=== PATIENT | female | born 1995 | race African-American/Black ===

== ENCOUNTER 2019-03-16 13:07 | Emergency (ER) | payer OTHER ==
[~2019-03-16] VITALS: Ht 165.1 cm; Wt 77.1 kg
--- OUTSIDE RECORDS SUMMARY | 2019-03-16 13:11 | XMS REPORT | Clinical Summary ---
Author Author JOHANNA [facility] Address Unknown Phone Unavailable Care Team Providers Care Electrician Chief Name Role Phone Maki Irby PCP Allergies No Known Allergies Medications End Date Status Medication Sig Dispensed Refills Start Date 04/01/2018 Discontinued acetaminophen (TYLENOL) Take 650 mg 0 325 MG tablet by mouth every 6 (six) hours as needed. 04/01/2018 Discontinued Take 1 tablet 90 each 0 [id number] Tab by mouth 4 daily. ANY BRAND OR FORMULATION WITH IRON 11/22/2018 cefdinir (OMNICEF) 300 MG Take 1 20 capsule 0 capsule capsule (300 9 mg total) by mouth 2 (two) times daily for 7 days. Active Problems Problem Noted Date Intractable tension-type headache, unspecified chronicity pattern 04/01/2018 Fever in adult 04/01/2018 Encounters Care Team Description Date Type Specialty Jhony Patel MD Febrile illness (Primary Dx); Acute URI; Sore throat 11/15/2018 Emergency Emergency Medicine Edilma Lopez DO Fever in adult (Primary Dx); Intractable tension-type headache, unspecified chronicity pattern 04/01/2018 Emergency Emergency Medicine after 03/15/2018 Family History Medical History Relation Name Comments Unremarkable Neg Hx Social History Date Tobacco Use Types Packs/Day Years Used Never Smoker Smokeless Tobacco: Never Used Alcohol Use Drinks/Week oz/Week Comments No Sex Assigned at Date Recorded Not on file Industry Job Start Date Occupation Not on file Not on file Not on file Travel End Travel History Travel Start No recent travel history available. Last Filed Vital Signs Time Taken Vital Sign Reading 11/15/2018 2:28 PM [facility] Blood Pressure 129/74 11/15/2018 2:28 PM [facility] Pulse 100 11/15/2018 1:31 PM [facility] Temperature 37.9 C (100.2 F) 11/15/2018 2:28 PM [facility] Respiratory Rate 18 11/15/2018 2:28 PM [facility] Oxygen Saturation 98% - Inhaled Oxygen - Concentration 11/15/2018 1:31 PM [facility] Weight 79.8 kg (176 lb) 11/15/2018 1:31 PM [facility] Height 165.1 cm (5' 5") 11/15/2018 1:31 PM [facility] Body Mass Index 29.29 Plan of Treatment Not on file Procedures Comments Procedure Name Priority Date/Time Associated Diagnosis XR CHEST 2 VIEWS STAT 11/15/2018 2:42 PM [facility] RAPID STREP A SCREEN STAT 11/15/2018 1:49 PM [facility] RAPID INFLUENZA A&B STAT 11/15/2018 SCREEN 1:49 PM [facility] SCREEN, URINE STAT 04/01/2018 9:43 PM CDT URINALYSIS W/ REFLEX STAT 04/01/2018 URINE CULTURE 9:43 PM CDT after 03/15/2018 Results * XR chest 2 views (11/15/2018 2:42 PM [facility]) Specimen Narrative Performed At FINAL REPORT [facility] Chest, PA and lateral. History: Cough. Comparison: None available. Discussion:The cardiomediastinal silhouette and pulmonary vasculature are within normal limits. The lungs are clear without evidence of consolidation or effusion.There are no acute osseous abnormalities. The soft tissues are unremarkable. IMPRESSION: No acute cardiopulmonary abnormality. Signed: Melany Marshall MD Report Verified Date/Time:11/15/2018 14:40:12 Reading Location: [address] Radiology Reading Room Procedure Note Interface, External Ris In - 11/15/2018 3:04 PM [facility] FINAL REPORT Chest, PA and lateral. History: Cough. Comparison: None available. Discussion: The cardiomediastinal silhouette and pulmonary vasculature are within normal limits. The lungs are clear without evidence of consolidation or effusion. There are no acute osseous abnormalities. The soft tissues are unremarkable. IMPRESSION: No acute cardiopulmonary abnormality. Signed: Melany Marshall MD Report Verified Date/Time: 11/15/2018 14:40:12 Reading Location: [address] Radiology Reading Room Performing Organization Address City/[facility] Phone Number GE RIS * Rapid Strep A screen (11/15/2018 1:49 PM [facility]) Strep A Ag Negative Negative [facility] Specimen Throat Performing Organization Address [facility] Phone Number [place] [phone] [place] [address], [facility] * Influenza antigen A & B (Rapid) (11/15/2018 1:49 PM [facility]) Rapid Influenza A Antigen Negative Negative, Inconclusive [facility] Rapid influenza B Antigen Negative Negative, Inconclusive [facility] Specimen Nasopharyngeal Performing Organization Address [facility] Number [place] [phone] [place] [address], [facility] * Urinalysis w/Microscopic + Reflex to Culture (04/01/2018 9:43 PM CDT) Color, UA Yellow [facility] Clarity, UA Clear [facility] Specific [place], UA 1.010 1.001 - 1.035 [facility] pH, UA 7.0 5.0 - 8.0 [facility] Protein, UA Negative Negative [facility] Glucose, UA Negative Negative [facility], [facility], [facility] Ketones, UA Negative Negative [facility], [facility] Bilirubin, UA Negative Negative [facility], [facility], [facility] Blood, UA Trace (A) Negative [facility], [facility], [facility] Nitrite, UA Negative Negative [facility], [facility] Leukocytes, UA Negative Negative [facility], [facility], [facility] Urobilinogen, UA 0.2 0.2 - 1.0 mg/dL [facility], [facility], [facility] Bacteria, UA None Seen [facility], [facility] RBC, UA <5 /HPF [facility], [facility] WBC, UA None Seen /HPF [facility], [facility] SQUAMOUS EPITHELIAL <5 /HPF [facility], [facility] Specimen Source [facility], [facility] Specimen Urine Performing Organization Address City/[facility]/Zipcode Phone Number [facility] [address] [place], [place] [phone] [facility], [facility] * Screen, urine (04/01/2018 9:43 PM CDT) Preg Test, Ur Negative [facility], [facility] Specimen Urine Performing Organization Address City/[facility]/Zipcode Phone Number [facility] [address] [place], [place] [phone] [facility], [facility], [facility] after 03/15/2018 Insurance Payer Benefit Subscriber ID Type Phone Address Plan / Group MEDICAID - MEDICAID [facility]GD [facility] xxxxxxxxx Medicaid CARE [employer]AR Contracted PLAN
--- OUTSIDE RECORDS SUMMARY | 2019-03-16 13:12 | XMS REPORT | Continuity of Care Document ---
Author Author [employer] Address Unknown Phone Unavailable Care Team Providers Care Abseiling Instructor Name Role Phone UNATION Unavailable Unavailable Problems Problem Status Onset Date Classification Date Reported Comments Source SOB Active 12/05/2015 [facility] Resolved 12/01/2015 Problem 12/13/2015 [facility] VAGINAL DEL Active 11/24/2015 [facility] ELEVATED BP Active 05/25/2014 [facility] STOMACH PAIN Active 05/22/2014 [facility] ABDOMINAL PAIN Active 03/02/2014 [facility] Discharge Diagnosis: Abdominal pain in 03/02/2014 03/04/2014 [facility] Gestational hypertension Active Problem 12/13/2015 [facility] Group B streptococcus Active Problem 12/13/2015 [facility] Pre-eclampsia Active Problem 12/13/2015 [facility] Final: related conditions, unspecified, unspecified trimester 12/13/2015 [facility] HYPERTENSION NOS Active [facility] RELATED CONDITIONS, UNSP, UNSP Active [facility] Medications Medication Details Route Status Patient Instructions Ordering Provider Order Date Source ibuprofen 800 mg oral tablet 800 mg=1 tab, PO, Q8H, PRN Pain Score 6-10, # 30 tab, 0 Refill(s) Active 12/10/2015 [facility] Acetaminophen 300 MG / Codeine Phosphate 30 MG Oral Tablet [Tylenol with Codeine #3] 1 - 2 tab, PO, Q6H, PRN Pain, X 4 day, # 32 tab, 0 Refill(s) Active 12/10/2015 [facility] 24 HR Nifedipine 30 MG Extended Release Tablet 30 mg=1 tab, PO, Daily, # 30 tab, 0 Refill(s) Active 12/10/2015 [facility] Depo-Provera 150 mg, 1 mL, Route: IM, Drug form: INJ, ONCE, Dosing Weight 77.273, kg, Start date: 12/09/15 9:19:00, Stop date: 12/09/15 9:19:00Notes: (Same as: Depo-Provera) This is NOT Depo-SubQ Provera 104 For IM use only MEDICATION WASTE Product Size: 150 mg Product Wasted: ___ mg Inactive 12/09/2015 [facility] Multivitamins oral tablet 1 tab, Route: PO, Drug Form: TAB, Dosing Weight 77.273, kg, Daily, Start date: 12/07/15 9:00:00, Duration: 30 day, Stop date: 01/05/16 9:00:00 No Longer Active 12/07/2015 [facility] tramadol hydrochloride 50 MG Oral Tablet 50 mg, 1 tab, Route: PO, Drug form: TAB, Q4H, Dosing Weight 77.273, kg, PRN Pain Score 1-3, Start date: 12/07/15 6:00:00, Duration: 30 day, Stop date: 01/06/16 5:59:00Notes: Not to exceed 400mg/day. (Same As: Ultram) No Longer Active 12/07/2015 [facility] Ofirmev 1 gm, 100 mL, Route: IV, Drug form: INJ, Q6H, Start date: 12/07/15 0:10:00, Duration: 3 doses or times, Stop date: 12/07/15 12:00:00Notes: Infuse over 15 minutes Do not exceed 4gm/day of acetaminophen MEDICATION WASTE Product Size: 1000 mg Product Wasted: ___ mg Inactive 12/07/2015 [facility] Saline Flush 0.9% 10 ml, Route: IVP, Drug Form: INJ, Dosing Weight 77.273, kg, Q12H, Start date: 12/06/15 21:00:00, Duration: 30 day, Stop date: 01/05/16 9:00:00Notes: Same as: BD Posiflush Sterile No Longer Active 12/07/2015 [facility] Ibuprofen 600 mg, Route: PO, Drug form: TAB, Q6H, Dosing Weight 77.273, kg, Start date: 12/06/15 18:00:00, Duration: 30 day, Stop date: 01/05/16 12:00:00 Inactive 12/06/2015 [facility] Ofirmev 1,000 mg, 100 mL, Route: IV, Drug form: INJ, Q6H, Dosing Weight 77.273, kg, for > or=50 kg, Start date: 12/06/15 18:00:00, Duration: 1 day, Stop date: 12/07/15 12:00:00Notes: Infuse over 15 minutes Do not exceed 4gm/day of acetaminophen MEDICATION WASTE Product Size: 1000 mg Product Wasted: ___ mg Inactive 12/06/2015 [facility] Naloxone 0.4 mg, 1 mL, Route: IVP, Drug form: INJ, ONCALL, Dosing Weight 77.273, kg, Start date: 12/06/15 16:00:00, Duration: 24 hr, Stop date: 12/07/15 15:59:00Notes: Same as Narcan No Longer Active 12/06/2015 [facility] Nalbuphine 2 mg, Route: IVP, Q2H, Dosing Weight 77.273, kg, PRN Itching, Start date: 12/06/15 15:10:00, Duration: 5 doses or times, Stop date: Limited # of times Inactive 12/06/2015 [facility] Naloxone 0.1 mg, 0.25 mL, Route: SUB-Q, Drug form: INJ, Q6H, Dosing Weight 77.273, kg, PRN Itching, Start date: 12/06/15 15:10:00, Duration: 24 hr, Stop date: 12/07/15 15:09:00Notes: Same as Narcan No Longer Active 12/06/2015 [facility] Dexamethasone 4 mg, 1 mL, Route: IVP, Drug form: INJ, Q6H, Dosing Weight 77.273, kg, PRN Nausea & Vomiting, Start date: 12/06/15 15:10:00, Duration: 24 hr, Stop date: 12/07/15 15:09:00Notes: Concentration: 4mg/ml No Longer Active 12/06/2015 [facility] Ondansetron 4 mg, 2 mL, Route: IVP, Drug form: INJ, Q6H, Dosing Weight 77.273, kg, PRN Nausea & Vomiting, Start date: 12/06/15 15:10:00, Duration: 24 hr, Stop date: 12/07/15 15:09:00Notes: (Same as: Zofran) MEDICATION WASTE Product Size: 4 mg Product Wasted: ___ mg No Longer Active 12/06/2015 [facility] Acetaminophen 1,000 mg, 100 mL, Route: IVPB, Drug form: INJ, Q6H, Dosing Weight 77.273, kg, Priority: NOW, Start date: 12/06/15 15:10:00, Duration: 24 hr, Stop date: 12/07/15 12:00:00Notes: Infuse over 15 minutes Do not exceed 4gm/day of acetaminophen MEDICATION WASTE Product Size: 1000 mg Product Wasted: ___ mg No Longer Active 12/06/2015 [facility] Ketorolac 30 mg, 1 mL, Route: IVP, Drug form: INJ, Q6H, Dosing Weight 77.273, kg, PRN Pain Score 4-6, Start date: 12/06/15 15:10:00, Duration: 24 hr, Stop date: 12/07/15 15:09:00Notes: (Same as:Toradol) IV bolus must be given >15 seconds. Give IM administration slowly and deeply into the muscle. Not for use > 4 days MEDICATION WASTE Product Size: 30 mg Product Wasted: ___ mg No Longer Active 12/06/2015 [facility] 0.5 ML Bordetella pertussis filamentous hemagglutinin vaccine, inactivated 0.01 MG/ML / Bordetella pertussis fimbriae 2/3 vaccine, inactivated 0.01 MG/ML / Bordetella pertussis pertactin vaccine, inactivated 0.006 MG/ML / Bordetella pertussis toxoid vacci 0.5 mL, Route: IM, Drug Form: INJ, Dosing Weight 77.273, kg, ONCALL, Start date: 12/06/15 15:00:00, Duration: 1 doses or timesNotes: (Tdap ) For Adolecent and Adult use For IM Use. Same as: Adacel (Tdap) No Longer Active 12/06/2015 [facility] M-M-R II 0.5 mL, Route: SUB-Q, Drug Form: PDR/INJ, Dosing Weight 77.273, kg, ONCALL, Start date: 12/06/15 15:00:00, Duration: 1 doses or timesNotes: (Same as: M-M-R II) (ortyrfx-eiuzu-wwpofnm virus vaccine 0.5 ml INJ VL) WASTE: F/P - Red; E -Red GIVE PRIOR TO DISCHARGE No Longer Active 12/06/2015 [facility] Acetaminophen 325 MG / Hydrocodone Bitartrate 5 MG Oral Tablet 1 tab, Route: PO, Drug Form: TAB, Dosing Weight 77.273, kg, Q4H, PRN Pain Score 4-6, Start date: 12/06/15 14:53:00, Duration: 30 day, Stop date: 01/05/16 14:52:00Notes: (Same as: [place] 325/5) Do not exceed 4gm/day of acetaminophen. No Longer Active 12/06/2015 [facility] Acetaminophen 325 MG / Hydrocodone Bitartrate 10 MG Oral Tablet 1 tab, Route: PO, Drug Form: TAB, Dosing Weight 77.273, kg, Q4H, PRN Pain Score 7-10, Start date: 12/06/15 14:53:00, Duration: 30 day, Stop date: 01/05/16 14:52:00Notes: Do not exceed 4gm/day of acetaminophen. (Same as: [place] 325/10) No Longer Active 12/06/2015 [facility] Saline Flush 0.9% 10 ml, Route: IVP, Drug Form: INJ, Dosing Weight 77.273, kg, PRN, PRN Line Flush, Start date: 12/06/15 14:53:00, Duration: 30 day, Stop date: 01/05/16 14:52:00Notes: Same as: BD Posiflush Sterile No Longer Active 12/06/2015 [facility] lanolin topical cream 1 appl, Route: TOP, PRN, Drug form: OINT, PRN Other -See Comment, Start date: 12/06/15 14:53:00, Duration: 30 day, Stop date: 01/05/16 14:52:00Notes: (Same as:Lanolin) No Longer Active 12/06/2015 [facility] Bisacodyl 10 mg, 1 supp, Route: OH, Drug form: SUPP, PRN, Dosing Weight 77.273, kg, PRN Other -See Comment, Start date: 12/06/15 14:53:00, Duration: 30 day, Stop date: 01/05/16 14:52:00Notes: (Same As: Dulcola x, Bisco-Lax) No Longer Active 12/06/2015 [facility] zolpidem 5 mg, 1 tab, Route: PO, Drug form: TAB, Bedtime, Dosing Weight 77.273, kg, PRN Insomnia, Start date: 12/06/15 14:53:00, Duration: 30 day, Stop date: 01/05/16 14:52:00Notes: (Same As: Ambien) No Longer Active 12/06/2015 [facility] Acetaminophen 650 mg, Route: PO, Drug form: TAB, Q4H, Dosing Weight 77.273, kg, PRN Other -See Comment, Start date: 12/06/15 14:53:00, Duration: 30 day, Stop date: 01/05/16 14:52:00 Inactive 12/06/2015 [facility] Simethicone 160 mg, 2 tab, Route: PO, Drug form: CHEWTAB, Q8H, Dosing Weight 77.273, kg, PRN Gas, Start date: 12/06/15 14:53:00, Duration: 30 day, Stop date: 01/05/16 14:52:00Notes: (Same as: Mylicon) No Longer Active 12/06/2015 [facility] Lactated Ringers IV 1,000 mL 1,000 mL, Rate: 100 ml/hr, Infuse over: 10 hr, Route: IV, Dosing Weight 77.273 kg, Total Volume: 1,000, Start date: 12/06/15 14:53:00, Duration: 30 day, Stop date: 01/05/16 14:52:00 No Longer Active 12/06/2015 [facility] Oxytocin 0.06 UNT/ML Injectable Solution 30 unit, 500 mL, Rate: 42 ml/hr, Infuse over: 11.9 hr, Dosing Weight 77.273, kg, Route: IV, Total Volume: 500 mL, Start date: 12/06/15 14:53:00, Duration: 1 doses or times, Stop date: 12/07/15 2:46:00, Replace Every: 11.9 hrNotes: (Same as: OXYTOCIN- D5LR) Inactive 12/06/2015 [facility] Cefazolin 2 gm, 100 mL, Route: IVPB, Drug form: INJ, ONCALL, Dosing Weight 77.273, kg, Start date: 12/06/15 14:00:00, Duration: 1 doses or times, Stop date: 12/07/15 0:00:00Notes: Same as: Ancef Inactive 12/06/2015 [facility] Misoprostol 1,000 microgram, 5 tab, Route: OH, Drug form: TAB, ONCALL, Dosing Weight 77.273, kg, Start date: 12/06/15 14:00:00, Duration: 30 day, Stop date: 01/05/16 13:59:00Notes: (Same as:Cytotec) Take with food Inactive 12/06/2015 [facility] Carboprost 250 microgram, 1 mL, Route: IM, Drug form: INJ, ONCALL, Dosing Weight 77.273, kg, Start date: 12/06/15 14:00:00, Duration: 30 day, Stop date: 01/05/16 13:59:00Notes: (Same As: Hemabate) Inactive 12/06/2015 [facility] Methylergonovine 0.2 mg, 1 mL, Route: IM, Drug form: INJ, ONCALL, Dosing Weight 77.273, kg, Start date: 12/06/15 14:00:00, Duration: 30 day, Stop date: 01/05/16 13:59:00Notes: (Same as:Methergine) Inactive 12/06/2015 [facility] Calcium Chloride 0.0014 MEQ/ML / Potassium Chloride 0.004 MEQ/ML / Sodium Chloride 0.103 MEQ/ML / Sodium Lactate 0.028 MEQ/ML Injectable Solution 1,000 mL, Rate: 125 ml/hr, Infuse over: 8 hr, Route: IV, Dosing Weight 77.273 kg, Total Volume: 1,000, Start date: 12/06/15 13:39:00, Duration: 30 day, Stop date: 01/05/16 13:38:00 Inactive 12/06/2015 [facility] Citric Acid / sodium citrate 30 mL, Route: PO, Drug Form: SOLN, Dosing Weight 77.273, kg, ONCE, Start date: 12/06/15 13:39:00, Duration: 1 doses or times, Stop date: 12/06/15 13:39:00Notes: (Same As: Bicitra, Cytra-2) Sodium citrate-citric acid (500-334 mg/5 mL): 1 mL contains sodium 1 mEq/mL and bicarbonate 1 mEq/mL Inactive 12/06/2015 [facility] Metoclopramide 10 mg, 2 mL, Route: IV, Drug form: INJ, Q6H, Dosing Weight 77.273, kg, PRN Nausea & Vomiting, Start date: 12/06/15 13:39:00, Duration: 30 day, Stop date: 01/05/16 13:38:00Notes: (Same as: Reglan) Inactive 12/06/2015 [facility] Morphine 2 mg, 1 mL, Route: IVP, Drug form: INJ, Q2H, Dosing Weight 77.273, kg, PRN Pain Score 7-10, Start date: 12/06/15 13:39:00, Duration: 30 day, Stop date: 01/05/16 13:38:00Notes: (Same as:MORPhine Sulfate) Inactive 12/06/2015 [facility] Ondansetron 4 mg, 2 mL, Route: IVP, Drug form: INJ, Q8H, Dosing Weight 77.273, kg, PRN Nausea & Vomiting, Start date: 12/06/15 13:39:00, Duration: 30 day, Stop date: 01/05/16 13:38:00Notes: (Same as: Violetta) MEDICATION WASTE Product Size: 4 mg Product Wasted: ___ mg Inactive 12/06/2015 [facility] Terbutaline 0.25 mg, 0.25 mL, Route: SUB-Q, Drug form: INJ, ONCALL, Dosing Weight 77.273, kg, PRN Other -See Comment, Start date: 12/06/15 13:39:00, Duration: 1 doses or times, Stop date: 12/07/15 0:00:00Notes: DO NOT USE IN [employer] AREA (Same As: Oscar) Inactive 12/06/2015 [facility] Oxytocin 0.06 UNT/ML Injectable Solution 30 unit, 500 mL, Rate: 42 ml/hr, Infuse over: 11.9 hr, Dosing Weight 77.273, kg, Route: IV, Total Volume: 500 mL, Start date: 12/06/15 13:39:00, Duration: 1 doses or times, Stop date: 12/07/15 1:32:00, Replace Every: 11.9 hrNotes: (Same as: OXYTOCIN- D5LR) Inactive 12/06/2015 [facility] APAP/butalbital/caffeine 1 tab, Route: PO, Drug Form: TAB, Q4H, PRN Headache 1-3, Start date: 12/06/15 11:40:00, Duration: 30 day, Stop date: 01/05/16 11:39:00Notes: (uokookpatefww-umatvvpzco-rwbqswie 325-50-40mg) Do not exceed 4 gm/day of acetaminophen. (Same as: Esgic, Fioricet) No Longer Active 12/06/2015 [facility] Fioricet with Codeine 1 cap, Route: PO, Drug Form: CAP, Dosing Weight 77.273, kg, Q4H, PRN Headache 1-5, Start date: 12/06/15 11:08:00, Duration: 30 day, Stop date: 01/05/16 11:07:00 Inactive 12/06/2015 [facility] multivitamin, 1 tab, Route: PO, Drug Form: TAB, Dosing Weight 77.273, kg, Daily, Start date: 12/06/15 9:00:00, Duration: 30 day, Stop date: 01/04/16 9:00:00 Inactive 12/06/2015 [facility] Ofirmev 1,000 mg, 100 mL, Route: IV, Drug form: INJ, ONCE, Dosing Weight 77.273, kg, Priority: STAT, Start date: 12/06/15 8:19:00, Stop date: 12/06/15 8:19:00Notes: Infuse over 15 minutes Do not exceed 4gm/day of acetaminophen MEDICATION WASTE Product Size: 1000 mg Product Wasted: ___ mg Inactive 12/06/2015 [facility] Ofirmev 1,000 mg, 100 mL, Route: IV, Drug form: INJ, ONCE, Dosing Weight 77.273, kg, PRN Pain Score 1-3, for > or=50 kg, Start date: 12/06/15 7:40:00Notes: Infuse over 15 minutes Do not exceed 4gm/day of acetam inophen MEDICATION WASTE Product Size: 1000 mg Product Wasted: ___ mg No Longer Active 12/06/2015 [facility] Ofirmev 1,000 mg, 100 mL, Route: IV, Drug form: INJ, ONCE, Dosing Weight 77.273, kg, PRN Headache 6-10, for > or=50 kg, Start date: 12/06/15 1:02:00, Stop date: 01/05/16 1:01:00Notes: Infuse over 15 minutes Do not exceed 4gm/day of acetaminophen MEDICATION WASTE Product Size: 1000 mg Product Wasted: ___ mg Inactive 12/06/2015 [facility] Labetalol 80 mg, Route: IVP, Drug form: INJ, ONCE, Dosing Weight 77.273, kg, Start date: 12/05/15 23:56:00, Stop date: 12/05/15 23:56:00 No Longer Active 12/06/2015 [facility] LR IV 1,000 mL 1,000 mL, Rate: 1,000 ml/hr, Infuse over: 1 hr, Route: IV, Dosing Weight 77.273 kg, Total Volume: 1,000, Start date: 12/05/15 23:54:00, Duration: 1 doses or times, Stop date: 12/06/15 0:53:00 No Longer Active 12/06/2015 [facility] Procardia XL 30 mg, 1 tab, Route: PO, Drug form: ERTAB, Daily, Dosing Weight 77.273, kg, Start date: 12/05/15 23:30:00, Duration: 30 day, Stop date: 01/04/16 9:00:00Notes: (Same as: Adalat CC, Procardia XL) Give on empty stomach. Take 1 hour before or 2 hours after meal; "Avoid grapefruit and grapefruit juice". Do not crush No Longer Active 12/06/2015 [facility] Labetalol 80 mg, Route: IVP, Drug form: INJ, ONCE, Dosing Weight 77.273, kg, Start date: 12/05/15 23:13:00, Stop date: 12/05/15 23:13:00 Inactive 12/06/2015 [facility] Calcium Gluconate 1 gm, 10 mL, Route: IVP, Drug form: INJ, ONCE, Dosing Weight 77.273, kg, PRN Other -See Comment, Start date: 12/05/15 23:05:00Notes: WASTE: F/P - Sink; E - Municipal Trash Bin No Longer Active 12/06/2015 [facility] Magnesium Sulfate 500 mL, Rate: 50 ml/hr, Infuse over: 10 hr, Route: IV, Dosing Weight 77.273 kg, Total Volume: 500, Start date: 12/05/15 23:05:00, Duration: 30 day, Stop date: 01/04/16 23:04:00Notes: (Same as: MgSO4) WASTE: F/P - Sink; E - Municipal Trash Bin No Longer Active 12/06/2015 [facility] magnesium sulfate 6 gm / 100 mL solution 6 gm, 50 mL, Route: IVPB, Drug form: INJ, ONCE, Dosing Weight 77.273, kg, Loading dose; Dilute in 100 ml; Infuse over 30 minutes @ 200 ml/hr (STOP: Above a 6 gm loading dose, call Pharmacist or Physician), Start date: 12/05/15 23:05:00, Duration: 1...Notes: Bybj=130 mg/ml. Total volume=50 ml. Bolus dose. Run over 30 minutes. WASTE: F/P - Sink; E - Municipal Trash Bin Inactive 12/06/2015 [facility] Labetalol 40 mg, 8 mL, Route: IVP, Drug form: INJ, ONCE, Dosing Weight 77.273, kg, PRN Hypertension, Start date: 12/05/15 22:41:00, Stop date: 01/04/16 22:40:00 Inactive 12/06/2015 [facility] Labetalol 20 mg, Route: IVP, Drug form: INJ, ONCE, Dosing Weight 77.273, kg, PRN Hypertension, Start date: 12/05/15 22:15:00 Inactive 12/06/2015 [facility] -U oral capsule 1 cap, PO, Daily, 0 Refill(s) Active 12/06/2015 [facility] multivitamin, 1 tab, Route: PO, Drug Form: TAB, Dosing Weight 77.273, kg, Daily, Start date: 12/02/15 9:00:00, Duration: 30 day, Stop date: 12/31/15 9:00:00 No Longer Active 12/02/2015 [facility] betamethasone 12 mg, 2 mL, Route: IM, Drug form: INJ, Q24H, Dosing Weight 77.273, kg, Priority: NOW, Start date: 12/01/15 15:31:00, Duration: 2 doses or times, Stop date: 12/02/15 15:31:00Notes: (betamethasone acetate-sodium phosphate 6 mg/ml INJ) (Same As: Celestone Soluspan) No Longer Active 12/01/2015 [facility] D5LR 1,000 mL 1,000 mL, Rate: 75 ml/hr, Infuse over: 13.3 hr, Route: IV, Dosing Weight 77.273 kg, Total Volume: 1,000, Start date: 12/01/15 12:59:00, Duration: 30 day, Stop date: 12/31/15 12:58:00 No Longer Active 12/01/2015 [facility] Medroxyprogesterone 150 mg, 1 mL, Route: IM, Drug form: INJ, ONCE, Dosing Weight 64.091, kg, Start date: 06/17/14 11:34:00, Duration: 1 doses or times, Stop date: 06/17/14 11:34:00Notes: (Same as: Depo-Provera) This is NOT Depo-SubQ Provera 104 For IM use only. Inactive 06/17/2014 [facility] 24 HR Nifedipine 90 MG Extended Release Tablet 90 mg=1 tab, PO, Daily, # 30 tab, 2 Refill(s) Active 06/17/2014 [facility] tramadol hydrochloride 50 MG Oral Tablet 1-2 tab, PO, Q6H, Pain, # 30 tab, 0 Refill(s) Active 06/17/2014 [facility] Docusate Sodium 100 MG Oral Capsule [Colace] 100 mg=1 cap, PO, BID, Constipation, # 30 cap, 0 Refill(s) Active 06/17/2014 [facility] ibuprofen 800 mg oral tablet 800 mg=1 tab, PO, Q8H, Pain Score 6-10, # 45 tab, 0 Refill(s) Active 06/17/2014 [facility] Acetaminophen 325 MG / Hydrocodone Bitartrate 5 MG Oral Tablet 1 tab, PO, Q4H, as needed for pain, # 30 tab, 0 Refill(s) Inactive 06/17/2014 [facility] Procardia XL 90 mg, 1 tab, Route: PO, Drug form: ERTAB, Daily, Dosing Weight 64.091, kg, Start date: 06/16/14 9:00:00, Duration: 30 day, Stop date: 07/15/14 9:00:00Notes: (Same as:Adalat CC, Procardia XL) Give o n empty stomach. Take 1 hour before or 2 hours after meal; "Avoid grapefruit and grapefruit juice". Do not crush No Longer Active 06/16/2014 [facility] Procardia XL 30 mg, 1 tab, Route: PO, Drug form: ERTAB, ONCE, Dosing Weight 64.091, kg, Start date: 06/15/14 19:57:00, Stop date: 06/15/14 19:57:00Notes: (Same as: Adalat CC, Procardia XL) Give on empty stomach. Take 1 hour before or 2 hours after meal; "Avoid grapefruit and grapefruit juice". Do not crush Inactive 06/16/2014 [facility] Calcium Chloride 0.0014 MEQ/ML / Potassium Chloride 0.004 MEQ/ML / Sodium Chloride 0.103 MEQ/ML / Sodium Lactate 0.028 MEQ/ML Injectable Solution 300 mL, 300 ml/hr, Infuse Over: 1 hr, Route: IV, 300, Drug form: INJ, ONCE, Priority: STAT, Dosing Weight 64.091 kg, Start date: 06/14/14 13:37:00, Duration: 1 doses or times, Stop date: 06/14/14 13:37:00 Inactive 06/14/2014 [facility] Procardia XL 90 mg, 1 tab, Route: PO, Drug form: ERTAB, Daily, Dosing Weight 64.091, kg, Start date: 06/14/14 9:00:00, Duration: 30 day, Stop date: 07/13/14 9:00:00Notes: (Same as:Adalat CC, Procardia XL) Give o n empty stomach. Take 1 hour before or 2 hours after meal; "Avoid grapefruit and grapefruit juice". Do not crush Inactive 06/14/2014 [facility] Saline Flush 0.9% 10 ml, Route: IVP, Drug Form: INJ, Dosing Weight 64.091, kg, Q12H, Start date: 06/14/14 9:00:00, Duration: 30 day, Stop date: 07/13/14 21:00:00Notes: (Same as: BD Posiflush) No Longer Active 06/14/2014 [facility] Multivitamins oral tablet 1 tab, Route: PO, Drug Form: TAB, Dosing Weight 64.091, kg, Daily, Start date: 06/14/14 9:00:00, Duration: 30 day, Stop date: 07/13/14 9:00:00 No Longer Active 06/14/2014 [facility] Naloxone 0.4 mg, 1 mL, Route: IVP, Drug form: INJ, ONCALL, Dosing Weight 64.091, kg, Start date: 06/13/14 23:00:00, Duration: 24 hr, Stop date: 06/14/14 22:59:00Notes: Same as Narcan No Longer Active 06/14/2014 [facility] M-M-R II 0.5 mL, Route: SUB-Q, Drug Form: PDR/INJ, Dosing Weight 64.091, kg, ONCALL, Start date: 06/13/14 23:00:00, Duration: 1 doses or timesNotes: (Same as: M-M-R II) (jezsiql-doedu-einydgy virus vaccine 0.5 ml INJ VL) GIVE PRIOR TO DISCHARGE No Longer Active 06/14/2014 [facility] Acetaminophen 325 MG / Hydrocodone Bitartrate 5 MG Oral Tablet 1 tab, Route: PO, Drug Form: TAB, Dosing Weight 64.091, kg, Q4H, PRN Pain Score 4-6, Start date: 06/13/14 22:08:00, Duration: 30 day, Stop date: 07/13/14 22:07:00Notes: (Same as: [place] 325/5) Do not exceed 4gm/day of acetaminophen. No Longer Active 06/14/2014 [facility] Acetaminophen 325 MG / Hydrocodone Bitartrate 10 MG Oral Tablet 1 tab, Route: PO, Drug Form: TAB, Dosing Weight 64.091, kg, Q4H, PRN Pain Score 7-10, Start date: 06/13/14 22:08:00, Duration: 30 day, Stop date: 07/13/14 22:07:00Notes: Do not exceed 4gm/day of acetaminophen. (Same as: [place] 325/10) No Longer Active 06/14/2014 [facility] Ibuprofen 800 mg, 1 tab, Route: PO, Drug form: TAB, Q8H, Dosing Weight 64.091, kg, PRN Pain Score 6-10, Start date: 06/13/14 22:08:00, Duration: 30 day, Stop date: 07/13/14 22:07:00Notes: (Same as: Motrin) "Do Not Crush" Take with food. No Longer Active 06/14/2014 [facility] Saline Flush 0.9% 10 ml, Route: IVP, Drug Form: INJ, Dosing Weight 64.091, kg, PRN, PRN Line Flush, Start date: 06/13/14 22:08:00, Duration: 30 day, Stop date: 07/13/14 21:07:00Notes: (Same as: BD Posiflush) No Longer Active 06/14/2014 [facility] Oxytocin 0.03 UNT/ML Injectable Solution 30 unit, 500 mL, Rate: 42 ml/hr, Infuse over: 11.9 hr, Dosing Weight 64.091, kg, Route: IV, Total Volume: 500 mL, Start date: 06/13/14 22:08:00, Duration: 1 doses or times, Stop date: 06/14/14 10:01:00, Replace Every: 11.9 hrNotes: (Same as: OXYTOCIN- D5LR) No Longer Active 06/14/2014 [facility] zolpidem 5 mg, 1 tab, Route: PO, Drug form: TAB, Bedtime, Dosing Weight 64.091, kg, PRN Insomnia, Start date: 06/13/14 22:08:00, Duration: 30 day, Stop date: 07/13/14 22:07:00Notes: (Same As: Ambien) No Longer Active 06/14/2014 [facility] Simethicone 160 mg, 2 tab, Route: PO, Drug form: CHEWTAB, Q8H, Dosing Weight 64.091, kg, PRN Gas, Start date: 06/13/14 22:08:00, Duration: 30 day, Stop date: 07/13/14 22:07:00Notes: (Same as: Mylicon) No Longer Active 06/14/2014 [facility] Acetaminophen 650 mg, 20.3 mL, Route: PO, Drug form: LIQ, Q4H, Dosing Weight 64.091, kg, PRN Other -See Comment, Start date: 06/13/14 22:08:00, Duration: 30 day, Stop date: 07/13/14 22:07:00Notes: Max acetaminophe i=[id number]/day (4 gm/day). (Same as: Tylenol) No Longer Active 06/14/2014 [facility] lanolin topical cream 1 appl, Route: TOP, PRN, Drug form: OINT, PRN Other -See Comment, Start date: 06/13/14 22:08:00, Duration: 30 day, Stop date: 07/13/14 21:07:00Notes: (Same as:Lanolin) No Longer Active 06/14/2014 [facility] Bisacodyl 15 mg, 3 tab, Route: PO, Drug form: ECTAB, Daily, Dosing Weight 64.091, kg, PRN Other -See Comment, Start date: 06/13/14 22:08:00, Duration: 30 day, Stop date: 07/13/14 22:07:00Notes: (Same As: [place] lax, Correctol) (Do Not Crush) "Do Not Crush" No Longer Active 06/14/2014 [facility] Lactated Ringers IV 1,000 mL 1,000 mL, Rate: 100 ml/hr, Infuse over: 10 hr, Route: IV, Dosing Weight 64.091 kg, Total Volume: 1,000, Start date: 06/13/14 22:08:00, Duration: 30 day, Stop date: 07/13/14 22:07:00 No Longer Active 06/14/2014 [facility] Ketorolac 30 mg, 1 mL, Route: IVP, Drug form: INJ, Q6H, Dosing Weight 64.091, kg, PRN Pain Score 4-6, Start date: 06/13/14 22:05:00, Duration: 24 hr, Stop date: 06/14/14 22:04:00Notes: (Same as:Toradol) IV bolus must be given >15 seconds. Give IM administration slowly and deeply into the muscle. Not for use > 4 days No Longer Active 06/14/2014 [facility] Ibuprofen 600 mg, 1 tab, Route: PO, Drug form: TAB, Q6H, Dosing Weight 64.091, kg, PRN Pain Score 1-3, Start date: 06/13/14 22:05:00, Stop date: 07/13/14 18:00:00Notes: (Same as: Motrin) "Do Not Crush" Take with food. No Longer Active 06/14/2014 [facility] Ondansetron 4 mg, 2 mL, Route: IVP, Drug form: INJ, Q6H, Dosing Weight 64.091, kg, PRN Nausea & Vomiting, Start date: 06/13/14 22:05:00, Duration: 24 hr, Stop date: 06/14/14 22:04:00Notes: (Same as: Zofran) No Longer Active 06/14/2014 [facility] Acetaminophen 1,000 mg, 100 mL, Route: IVPB, Drug form: INJ, Q6H, Dosing Weight 64.091, kg, Priority: NOW, Start date: 06/13/14 22:05:00, Duration: 24 hr, Stop date: 06/14/14 18:00:00Notes: Infuse over 15 minutes Do not exceed 4gm/day of acetaminophen Active 06/14/2014 [facility] Acetaminophen 325 MG / Hydrocodone Bitartrate 5 MG Oral Tablet 1 tab, Route: PO, Drug Form: TAB, Dosing Weight 64.091, kg, Q4H, PRN Pain Score 4-6, Start date: 06/13/14 22:00:00, Duration: 30 day, Stop date: 07/13/14 21:59:00Notes: (Same as: [place] 325/5) Do not exceed 4gm/day of acetaminophen. No Longer Active 06/14/2014 [facility] Ibuprofen 800 mg, 1 tab, Route: PO, Drug form: TAB, Q8H, Dosing Weight 64.091, kg, PRN Pain Score 6-10, Start date: 06/13/14 22:00:00, Duration: 30 day, Stop date: 07/13/14 21:59:00Notes: (Same as: Motrin) "Do Not Crush" Take with food. No Longer Active 06/14/2014 [facility] Acetaminophen 325 MG / Hydrocodone Bitartrate 10 MG Oral Tablet 1 tab, Route: PO, Drug Form: TAB, Dosing Weight 64.091, kg, Q4H, PRN Pain Score 7-10, Start date: 06/13/14 22:00:00, Duration: 30 day, Stop date: 07/13/14 21:59:00Notes: Do not exceed 4gm/day of acetaminophen. (Same as: [place] 325/10) No Longer Active 06/14/2014 [facility] Penicillin G 2,500,000 unit, 50 mL, Route: IVPB, Drug form: INJ, ABXQ4H, Dosing Weight 64.091, kg, Start date: 06/13/14 19:00:00 No Longer Active 06/14/2014 [facility] Oxytocin 0.03 UNT/ML Injectable Solution 30 unit, 500 mL, Rate: Titrate, Dosing Weight 64.091, kg, Route: IV, Total Volume: 500 mL, Start date: 06/13/14 15:21:00, Duration: 2 day, Stop date: 06/15/14 15:20:00, Replace Every: 24 hrNotes: (Same as: OXYTOCIN-D5LR) No Longer Active 06/13/2014 [facility] Hydralazine 10 mg, Route: IV, ONCE, Dosing Weight 64.091, kg, Priority: STAT, Start date: 06/13/14 15:19:00, Stop date: 06/13/14 15:19:00 Inactive 06/13/2014 [facility] Penicillin G Potassium [id number] UNT/ML Injectable Solution 5,000,000 unit, Route: IVPB, Drug form: PDR/INJ, ONCALL, Dosing Weight 64.091, kg, Start date: 06/13/14 15:00:00, Duration: 1 doses or timesNotes: (Same as: Pfizerpen) No Longer Active 06/13/2014 [facility] Calcium Gluconate 1 gm, 10 mL, Route: IVPB, Drug form: INJ, ONCALL, Dosing Weight 64.091, kg, (Maximum Dose=3 gm); For Hypermagnesemia, Start date: 06/13/14 15:00:00, Duration: 30 day, Stop date: 07/13/14 13:59:00 No Longer Active 06/13/2014 [facility] Magnesium Sulfate 500 mL, Rate: 50 ml/hr, Infuse over: 10 hr, Route: IV, Dosing Weight 64.091 kg, Total Volume: 500, Start date: 06/13/14 14:25:00, Stop date: 06/14/14 22:00:00Notes: (Same as: MgSO4) No Longer Active 06/13/2014 [facility] Hydralazine 10 mg, 0.5 mL, Route: IV, Drug form: INJ, ONCE, Dosing Weight 64.091, kg, Start date: 06/13/14 13:55:00, Stop date: 06/13/14 13:55:00Notes: (Same as: Apresoline) Push over 5 minutes Inactive 06/13/2014 [facility] Procardia XL 30 mg, 1 tab, Route: PO, Drug form: ERTAB, ONCE, Dosing Weight 64.091, kg, Priority: STAT, Start date: 06/13/14 10:50:00, Stop date: 06/13/14 10:50:00Notes: (Same as: Adalat CC, Procardia XL) Give on e mpty stomach. Take 1 hour before or 2 hours after meal; "Avoid grapefruit and grapefruit juice". Do not crush Inactive 06/13/2014 [facility] Labetalol 40 mg, 8 mL, Route: IV, Drug form: INJ, ONCE, Dosing Weight 64.091, kg, Start date: 06/12/14 19:41:00, Stop date: 06/12/14 19:41:00 Inactive 06/13/2014 [facility] Labetalol 20 mg, Route: IVP, Drug form: INJ, ONCE, Dosing Weight 64.091, kg, Start date: 06/12/14 18:35:00, Stop date: 06/12/14 18:35:00 Inactive 06/12/2014 [facility] Citric Acid / sodium citrate 30 ml, Route: PO, Drug Form: SOLN, Dosing Weight 64.091, kg, ONCE, Start date: 06/09/14 20:09:00, Stop date: 06/09/14 20:09:00Notes: (Same As: Bicitra, Cytra-2) Sodium citrate-citric acid (500-334 mg/5 mL): 1 mL contains sodium 1 mEq/mL and bicarbonate 1 mEq/mL Inactive 06/10/2014 [facility] Citric Acid / sodium citrate 30 ml, Route: PO, Drug Form: SOLN, Dosing Weight 64.091, kg, ONCE, Start date: 06/08/14 21:26:00, Stop date: 06/08/14 21:26:00Notes: (Same As: Bicitra, Cytra-2) Sodium citrate-citric acid (500-334 mg/5 mL): 1 mL contains sodium 1 mEq/mL and bicarbonate 1 mEq/mL Inactive 06/09/2014 [facility] Procardia XL 60 mg, 1 tab, Route: PO, Drug form: ERTAB, Daily, Dosing Weight 64.091, kg, Start date: 06/07/14 9:00:00, Duration: 30 day, Stop date: 07/06/14 9:00:00Notes: (Same as: Adalat CC, Procardia XL) Give on empty stomach. Take 1 hour before or 2 hours after meal; "Avoid grapefruit and grapefruit juice". Do not crush No Longer Active 06/07/2014 [facility] Procardia 30 mg, 1 tab, Route: PO, Drug form: ERTAB, ONCE, Dosing Weight 64.091, kg, Start date: 06/06/14 19:56:00, Stop date: 06/06/14 19:56:00Notes: (Same as: Adalat CC, Procardia XL) Give on empty stomach. Take 1 hour before or 2 hours after meal; "Avoid grapefruit and grapefruit juice". Do not crush Inactive 06/07/2014 [facility] Zofran 4 mg, 1 tab, Route: PO, Drug form: TAB, Q8H, Dosing Weight 64.091, kg, PRN Nausea, Start date: 06/06/14 18:35:00, Duration: 30 day, Stop date: 07/06/14 18:34:00Notes: (Same as: Zofran) No Longer Active 06/06/2014 [facility] Acetaminophen 325 MG / butalbital 50 MG / Caffeine 40 MG Oral Capsule 1 tab, Route: PO, Drug Form: TAB, Dosing Weight 64.091, kg, Q6H, PRN Headache 1-5, Start date: 06/03/14 1:06:00, Stop date: 07/03/14 1:05:00Notes: (duijiifianjyk-uuantvqvye-ribwlczm 325-50-40mg) Do not exceed 4 gm/day of acetaminophen. (Same as: Esgic, Fioricet) No Longer Active 06/03/2014 [facility] Famotidine 20 MG Oral Tablet [Pepcid] 20 mg, 1 tab, Route: PO, Drug form: TAB, Daily, Dosing Weight 64.091, kg, Start date: 06/01/14 9:00:00, Duration: 30 day, Stop date: 06/30/14 9:00:00Notes: (Same as: Pepcid) No Longer Active 06/01/2014 [facility] ferrous sulfate 325 mg, 1 tab, Route: PO, Drug form: ECTAB, Daily, Dosing Weight 64.091, kg, Start date: 06/01/14 9:00:00, Duration: 30 day, Stop date: 06/30/14 9:00:00Notes: Give with food. "Do Not Crush" No Longer Active 06/01/2014 [facility] Docusate Sodium 100 MG Oral Capsule [Colace] 100 mg, 1 cap, Route: PO, Drug form: CAP, BID, Dosing Weight 64.091, kg, PRN Constipation, Start date: 06/01/14 8:01:00, Duration: 30 day, Stop date: 07/01/14 8:00:00Notes: (Same as: Colace) (Do Not Crush) No Longer Active 06/01/2014 [facility] Influenza Virus Vaccine, Inactivated M-Jikylevm-82-2007 (H3N2)-like virus (U-Kxrkxve-236-2007 [facility] X-175C) strain / Influenza Virus Vaccine, Inactivated S-Moyjnczx-04-2007, IVR-148 (H1N1) strain / Influenza Virus Vaccine, Inactivated, L-Xjoearb-4-lik 0.5 ml, Route: IM, Drug Form: SUSP, Daily, Start date: 05/30/14 9:00:00, Duration: 1 doses or times, Stop date: 05/30/14 9:00:00Notes: (Same as: Fluzone Quadrivalent) Inactive 05/30/2014 [facility] Tylenol 650 mg, 2 tab, Route: PO, Drug form: TAB, Q6H, Dosing Weight 64.091, kg, PRN Pain Score 1-3, Start date: 05/26/14 11:01:00, Duration: 30 day, Stop date: 06/25/14 11:00:00Notes: Do not exceed 4 gm/day. (Same as: Tylenol) No Longer Active 05/26/2014 [facility] Ascorbic Acid / Calcium Carbonate / Copper Sulfate / Ferrous fumarate / Folic Acid / Magnesium Oxide / Niacinamide / Potassium Iodide / pyridoxine / Riboflavin / Thiamine / Vitamin A / Vitamin B 12 / Vitamin D / Vitamin E / Zinc Sulfate 1 tab, Route: PO, Drug Form: TAB, Dosing Weight 64.091, kg, Daily, Start date: 05/26/14 9:00:00, Duration: 30 day, Stop date: 06/24/14 9:00:00 No Longer Active 05/26/2014 [facility] Procardia XL 30 mg, 1 tab, Route: PO, Drug form: ERTAB, Daily, Dosing Weight 64.091, kg, Start date: 05/26/14 7:00:00, Duration: 30 day, Stop date: 06/24/14 9:00:00Notes: (Same as: Adalat CC, Procardia XL) Give on empty stomach. Take 1 hour before or 2 hours after meal; "Avoid grapefruit and grapefruit juice". Do not crush No Longer Active 05/26/2014 [facility] Lactated Ringers IV 1,000 mL 1,000 mL, Rate: 50 ml/hr, Infuse over: 20 hr, Route: IV, Dosing Weight 64.091 kg, Total Volume: 1,000, Start date: 05/26/14 3:32:00, Duration: 30 day, Stop date: 06/25/14 3:31:00 No Longer Active 05/26/2014 [facility] Calcium Gluconate 1 gm, 10 mL, Route: IVPB, ONCALL, Dosing Weight 64.091, kg, (Maximum Dose=3 gm); For Hypermagnesemia, Start date: 05/26/14 2:00:00, Duration: 30 day, Stop date: 06/25/14 1:59:00 No Longer Active 05/26/2014 [facility] Betamethasone / Betamethasone acetate 12 mg, 2 mL, Route: IM, Drug form: INJ, Q24H, Dosing Weight 64.091, kg, Start date: 05/26/14 2:00:00, Duration: 2 doses or times, Stop date: 05/27/14 2:00:00Notes: (betamethasone acetate-sodium phosphate 6 mg/ml INJ) (Same As: Celestone Soluspan) No Longer Active 05/26/2014 [facility] Magnesium Sulfate 6 gm, 50 mL, Route: IVPB, Drug form: INJ, ONCE, Dosing Weight 64.091, kg, Loading dose; Dilute in 100 ml; Infuse over 30 minutes @ 200 ml/hr (STOP: Above a 6 gm loading dose, call Pharmacist or Physician), Start date: 05/26/14 1:39:00, Duration: 1 d...Notes: Raaf=285 mg/ml. Total volume=50 ml. Bolus dose. Run over 30 minutes. Inactive 05/26/2014 [facility] Labetalol 40 mg, 8 mL, Route: IV, Drug form: INJ, ONCE, Dosing Weight 64.091, kg, Start date: 05/26/14 1:10:00, Stop date: 05/26/14 1:10:00 Inactive 05/26/2014 [facility] Labetalol 20 mg, Route: IVP, Drug form: INJ, ONCE, Dosing Weight 64.091, kg, Start date: 05/26/14 0:42:00, Stop date: 05/26/14 0:42:00 Inactive 05/26/2014 [facility] Famotidine 20 MG Oral Tablet [Pepcid] 20 mg=1 tab, PO, Q12H, # 60 tab, 1 Refill(s) Active 05/23/2014 [facility] multivitamin, Multivitamins with Folic Acid 1.4 mg oral tablet, chewable 1 tab, PO, Daily, # 30 tab, 3 Refill(s) Active 05/23/2014 [facility] Ascorbic Acid / Calcium Carbonate / Copper Sulfate / Ferrous fumarate / Folic Acid / Magnesium Oxide / Niacinamide / Potassium Iodide / pyridoxine / Riboflavin / Thiamine / Vitamin A / Vitamin B 12 / Vitamin D / Vitamin E / Zinc Sulfate 1 tab, Route: PO, Drug Form: TAB, Dosing Weight 64.091, kg, Daily, Start date: 05/23/14 9:00:00, Duration: 30 day, Stop date: 06/21/14 9:00:00 Inactive 05/23/2014 [facility] Famotidine 20 MG Oral Tablet [Pepcid] 20 mg, 1 tab, Route: PO, Drug form: TAB, Q12H, Dosing Weight 64.091, kg, Start date: 05/23/14 9:00:00, Duration: 30 day, Stop date: 06/21/14 21:00:00Notes: (Same as: Pepcid) Inactive 05/23/2014 [facility] Tylenol 650 mg, 2 tab, Route: PO, Drug form: TAB, ONCE, Dosing Weight 64.091, kg, Start date: 05/22/14 18:49:00, Stop date: 05/22/14 18:49:00Notes: Do not exceed 4 gm/day. (Same as: Tylenol) Inactive 05/22/2014 [facility] Saline Flush 0.9% 5 mL, Route: IVP, Drug Form: INJ, Dosing Weight 59.091, kg, PRN, PRN Line Flush, Start date: 03/02/14 20:45:00, Duration: 30 day, Stop date: 04/01/14 20:44:00Notes: Same as: BD Posiflush Sterile No Longer Active 03/03/2014 [facility] Allergies, Adverse Reactions, Alerts No Known Medication Allergies Immunizations Immunization Date Given Site Status Last Updated Comments Source diphtheria/pertussis, acel/tetanus adult 12/09/2015 Left Deltoid completed Gerardo [facility] influenza virus vaccine, inactivated 06/09/2014 Right Deltoid completed Klaus [facility] diphtheria/pertussis, acel/tetanus adult 06/08/2014 Right deltoid completed Loni [facility] Results Order Name Results Value Reference Range Date Interpretation Comments Source IMMUNOLOGY Rubella IgG 62.7 >=10.0 IU/mL 12/07/2015 [facility] HEMATOLOGY Hct 34.9 36.0 - 48.0 12/07/2015 [facility] HEMATOLOGY Hgb 11.4 12.0 - 16.0 12/07/2015 [facility] BLOOD BANK RESULTS ABO/Rh A POS 12/06/2015 [facility] BLOOD BANK RESULTS Antibody Scrn Negative (12/05/15 11:26 PM) 12/06/2015 [facility] CHEM PANEL ALT 18 0 - 65 12/06/2015 [facility] CHEM PANEL AST 27 0 - 37 12/06/2015 [facility] CHEM PANEL Uric Acid 5.7 2.5 - 7.0 12/06/2015 [facility] CHEM PANEL Creatinine Lvl 0.58 0.50 - 1.40 12/06/2015 [facility] CHEM PANEL eGFR 152 12/06/2015 Result Comment: The eGFR is calculated using the CKD-EPI formula. In most young, healthy individuals the eGFR will be >90 mL/min/1.73m2. The eGFR declines with age. An eGFR of 60-89 may be normal in some populations, particularly the elderly, for whom the CKD-EPI formula has not been extensively validated. Use of the eGFR is not recommended in the following populations:

Individuals with unstable creatinine concentrations, including patients and those with serious co-morbid conditions.

Patients with extremes in muscle mass or diet.

The data above are obtained from the National Kidney Disease Education Program (NKDEP) which additionally recommends that when the eGFR is used in patients with extremes of body mass index for purposes of drug dosing, the eGFR should be multiplied by the estimated BMI. [facility] CHEM PANEL LDH 275 98 - 192 12/06/2015 [facility] DRUG SCREEN UDS Note See Note (12/05/15 11:16 PM) 12/06/2015 [facility] DRUG SCREEN U Opiate Scr Negative *NA* (12/05/15 11:16 PM) Negative 12/06/2015 [facility] DRUG SCREEN U Phencyc Scr Negative *NA* (12/05/15 11:16 PM) Negative 12/06/2015 [facility] DRUG SCREEN U Propoxyph Scr Negative *NA* (12/05/15 11:16 PM) Negative 12/06/2015 [facility] DRUG SCREEN U Alcohol Negative *NA* (12/05/15 11:16 PM) Negative 12/06/2015 [facility] DRUG SCREEN U Methadone Scr Negative *NA* (12/05/15 11:16 PM) Negative 12/06/2015 [facility] DRUG SCREEN U Amph Scr Negative *NA* (12/05/15 11:16 PM) Negative 12/06/2015 [facility] DRUG SCREEN U Cocaine Scr Negative *NA* (12/05/15 11:16 PM) Negative 12/06/2015 [facility] DRUG SCREEN U Cannab Scr Negative *NA* (12/05/15 11:16 PM) Negative 12/06/2015 [facility] DRUG SCREEN U Benzodia Scr Negative *NA* (12/05/15 11:16 PM) Negative 12/06/2015 [facility] DRUG SCREEN U Ce Scr Negative *NA* (12/05/15 11:16 PM) Negative 12/06/2015 [facility] HEMATOLOGY MPV 10.5 7.4 - 10.4 12/06/2015 [facility] HEMATOLOGY Platelet 256 133 - 450 12/06/2015 [facility] HEMATOLOGY RDW 13.3 11.5 - 14.5 12/06/2015 [facility] HEMATOLOGY RBC 4.36 4.20 - 5.40 12/06/2015 [facility] HEMATOLOGY Hgb 11.9 12.0 - 16.0 12/06/2015 [facility] HEMATOLOGY WBC 9.3 3.7 - 10.4 12/06/2015 [facility] HEMATOLOGY MCHC 33.3 32.0 - 36.0 12/06/2015 [facility] HEMATOLOGY Hct 35.7 36.0 - 48.0 12/06/2015 [facility] HEMATOLOGY MCV 81.8 80.0 - 98.0 12/06/2015 [facility] HEMATOLOGY MCH 27.2 27.0 - 31.0 12/06/2015 [facility] HEMATOLOGY Lymphocytes 24.6 20.0 - 40.0 12/06/2015 [facility] HEMATOLOGY Eosinophils 0.4 0.0 - 4.0 12/06/2015 [facility] HEMATOLOGY Monocytes 14.4 2.0 - 12.0 12/06/2015 [facility] HEMATOLOGY Segs 60.3 45.0 - 75.0 12/06/2015 [facility] HEMATOLOGY Segs-Bands # 5.6 1.5 - 8.1 12/06/2015 [facility] HEMATOLOGY Lymphocytes # 2.3 1.0 - 5.5 12/06/2015 [facility] HEMATOLOGY Monocytes # 1.3 0.0 - 0.8 12/06/2015 [facility] HEMATOLOGY Basophils 0.3 0.0 - 1.0 12/06/2015 [facility] URINE CHEM U Creatinine 73.50 12/06/2015 [facility] URINE CHEM U Protein 1033.3 12/06/2015 [facility] URINE CHEM U Prot/Creat 14.1 12/06/2015 [facility] BLOOD BANK RESULTS ABO/Rh A POS 12/01/2015 [facility] BLOOD BANK RESULTS Antibody Scrn Negative (12/01/15 3:37 PM) 12/01/2015 [facility] DRUG SCREEN U Cannab Scr Negative *NA* (12/01/15 3:37 PM) Negative 12/01/2015 [facility] DRUG SCREEN U Opiate Scr Negative *NA* (12/01/15 3:37 PM) Negative 12/01/2015 [facility] DRUG SCREEN U Phencyc Scr Negative *NA* (12/01/15 3:37 PM) Negative 12/01/2015 [facility] DRUG SCREEN U Cocaine Scr Negative *NA* (12/01/15 3:37 PM) Negative 12/01/2015 [facility] DRUG SCREEN U Benzodia Scr Negative *NA* (12/01/15 3:37 PM) Negative 12/01/2015 [facility] DRUG SCREEN U Ce Scr Negative *NA* (12/01/15 3:37 PM) Negative 12/01/2015 [facility] DRUG SCREEN U Amph Scr Negative *NA* (12/01/15 3:37 PM) Negative 12/01/2015 [facility] DRUG SCREEN UDS Note See Note *NA* (12/01/15 3:37 PM) 12/01/2015 [facility] IMMUNOLOGY Hep Bs Ag Negative *NA* (12/01/15 3:37 PM) Negative 12/01/2015 [facility] IMMUNOLOGY Treponemal Scr Non Reactive *NA* (12/01/15 3:37 PM) Non Reactive 12/01/2015 [facility] IMMUNOLOGY HIV. Negative *NA* (12/01/15 3:37 PM) Negative 12/01/2015 [facility] CHEM PANEL Globulin 4.9 2.0 - 4.0 12/01/2015 [facility] CHEM PANEL A/G Ratio 0.6 0.7 - 1.6 12/01/2015 [facility] CHEM PANEL AGAP 12.8 10.0 - 20.0 12/01/2015 [facility] [place] B/C Ratio 10 6 - 25 12/01/2015 [facility] [place] CHEM PANEL eGFR 151 12/01/2015 Result Comment: The eGFR is calculated using the CKD-EPI formula. In most young, healthy individuals the eGFR will be >90 mL/min/1.73m2. The eGFR declines with age. An eGFR of 60-89 may be normal in some populations, particularly the elderly, for whom the CKD-EPI formula has not been extensively validated. Use of the eGFR is not recommended in the following populations:

Individuals with unstable creatinine concentrations, including patients and those with serious co-morbid conditions.

Patients with extremes in muscle mass or diet.

The data above are obtained from the National Kidney Disease Education Program (NKDEP) which additionally recommends that when the eGFR is used in patients with extremes of body mass index for purposes of drug dosing, the eGFR should be multiplied by the estimated BMI. [facility] [place] CHEM PANEL Glucose Lvl 84 70 - 99 12/01/2015 [facility] [place] CHEM PANEL BUN 6 7 - 22 12/01/2015 [facility] [place] CHEM PANEL Potassium Lvl 3.8 3.5 - 5.1 12/01/2015 [facility] [place] CHEM PANEL Chloride Lvl 106 95 - 109 12/01/2015 [facility] [place] CHEM PANEL Creatinine Lvl 0.58 0.50 - 1.40 12/01/2015 [facility] [place] CHEM PANEL Sodium Lvl 139 135 - 145 12/01/2015 [facility] [place] CHEM PANEL ALT 16 0 - 65 12/01/2015 [facility] [place] CHEM PANEL Bili Total 0.2 0.2 - 1.3 12/01/2015 [facility] [place] CHEM PANEL AST 17 0 - 37 12/01/2015 [facility] [place] CHEM PANEL Alk Phos 92 39 - 136 12/01/2015 [facility] [place] CHEM PANEL Total Protein 7.9 6.4 - 8.4 12/01/2015 [facility] [place] CHEM PANEL CO2 24 24 - 32 12/01/2015 [facility] [place] CHEM PANEL Albumin Lvl 3.0 3.5 - 5.0 12/01/2015 [facility] [place] CHEM PANEL Calcium Lvl 9.1 8.5 - 10.5 12/01/2015 [facility] [place] HEMATOLOGY MCHC 33.2 32.0 - 36.0 12/01/2015 [facility] [place] HEMATOLOGY RDW 13.5 11.5 - 14.5 12/01/2015 [facility] [place] HEMATOLOGY MCV 82.3 80.0 - 98.0 12/01/2015 [facility] HEMATOLOGY MCH 27.3 27.0 - 31.0 12/01/2015 [facility] [place] HEMATOLOGY Hct 39.5 36.0 - 48.0 12/01/2015 [facility] [place] HEMATOLOGY Platelet 255 133 - 450 12/01/2015 [facility] [place] HEMATOLOGY Hgb 13.1 12.0 - 16.0 12/01/2015 [facility] [place] HEMATOLOGY WBC 9.1 3.7 - 10.4 12/01/2015 [facility] [place] HEMATOLOGY RBC 4.80 4.20 - 5.40 12/01/2015 [facility] [place] HEMATOLOGY MPV 10.2 7.4 - 10.4 12/01/2015 [facility] [place] HEMATOLOGY Basophils # 0.1 0.0 - 0.2 12/01/2015 [facility] [place] HEMATOLOGY Lymphocytes # 1.7 1.0 - 5.5 12/01/2015 [facility] HEMATOLOGY Segs-Bands # 6.6 1.5 - 8.1 12/01/2015 [facility] [place] HEMATOLOGY Basophils 0.6 0.0 - 1.0 12/01/2015 [facility] [place] HEMATOLOGY Monocytes # 0.6 0.0 - 0.8 12/01/2015 [facility] [place] HEMATOLOGY Monocytes 7.1 2.0 - 12.0 12/01/2015 [facility] [place] HEMATOLOGY Eosinophils 0.3 0.0 - 4.0 12/01/2015 [facility] [place] HEMATOLOGY Lymphocytes 19.2 20.0 - 40.0 12/01/2015 [facility] HEMATOLOGY Segs 72.8 45.0 - 75.0 12/01/2015 [facility] URINE CHEM U Protein 181.9 12/01/2015 [facility] [place] URINE CHEM U Creatinine 326.00 12/01/2015 [facility] [place] URINE CHEM U Prot/Creat 0.6 12/01/2015 [facility] [place] CHEM PANEL eGFR 151 06/16/2014 <sup>1</sup>Result Comment: The eGFR is calculated using the CKD-EPI formula. In most young, healthy individuals the eGFR will be >90 mL/min/1.73m2. The eGFR declines with age. An eGFR of 60-89 may be normal in some populations, particularly the elderly, for whom the CKD-EPI formula has not been extensively validated. Use of the eGFR is not recommended in the following populations:& lt;br/>
Individuals with unstable creatinine concentrations, including patients and those with serious co-morbid conditions.

Patients with extremes in muscle mass or diet.

The data above are obtained from the National Kidney Disease Education Program (NKDEP) which additionally recommends that when the eGFR is used in patients with extremes of body mass index for purposes of drug dosing, the eGFR should be multiplied by the estimated BMI. [facility] [place] CHEM PANEL Creatinine Lvl 0.6 0.5 - 1.4 06/16/2014 [facility] HEMATOLOGY RDW 13.6 11.5 - 14.5 06/16/2014 [facility] HEMATOLOGY Platelet 275 133 - 450 06/16/2014 [facility] [place] HEMATOLOGY MPV 10.4 7.4 - 10.4 06/16/2014 [facility] HEMATOLOGY Hgb 11.2 12.0 - 16.0 06/16/2014 [facility] [place] HEMATOLOGY MCV 87.0 80.0 - 98.0 06/16/2014 [facility] [place] HEMATOLOGY Hct 32.9 36.0 - 48.0 06/16/2014 [facility] HEMATOLOGY WBC 11.5 3.7 - 10.4 06/16/2014 [facility] [place] HEMATOLOGY MCH 29.5 27.0 - 31.0 06/16/2014 [facility] [place] HEMATOLOGY RBC 3.78 4.20 - 5.40 06/16/2014 [facility] [place] HEMATOLOGY MCHC 33.9 32.0 - 36.0 06/16/2014 [facility] HEMATOLOGY Segs 59.0 45.0 - 75.0 06/16/2014 [facility] HEMATOLOGY Lymphocytes 32.4 20.0 - 40.0 06/16/2014 [facility] [place] HEMATOLOGY Monocytes 7.3 2.0 - 12.0 06/16/2014 [facility] [place] HEMATOLOGY Eosinophils 0.8 0.0 - 4.0 06/16/2014 [facility] [place] HEMATOLOGY Basophils # 0.1 0.0 - 0.2 06/16/2014 [facility] HEMATOLOGY Basophils 0.5 0.0 - 1.0 06/16/2014 [facility] [place] HEMATOLOGY Lymphocytes # 3.7 1.0 - 5.5 06/16/2014 [facility] [place] HEMATOLOGY Segs-Bands # 6.8 1.5 - 8.1 06/16/2014 [facility] [place] HEMATOLOGY Monocytes # 0.8 0.0 - 0.8 06/16/2014 [facility] [place] HEMATOLOGY Eosinophils # 0.1 0.0 - 0.5 06/16/2014 [facility] [place] CHEM PANEL Uric Acid 6.1 2.5 - 7.0 06/14/2014 [facility] [place] CHEM PANEL LDH 336 98 - 192 06/14/2014 [facility] [place] CHEM PANEL eGFR 93 06/14/2014 <sup>2</sup>Result Comment: The eGFR is calculated using the CKD-EPI formula. In most young, healthy individuals the eGFR will be >90 mL/min/1.73m2. The eGFR declines with age. An eGFR of 60-89 may be normal in some populations, particularly the elderly, for whom the CKD-EPI formula has not been extensively validated. Use of the eGFR is not recommended in the following populations:& lt;br/>
Individuals with unstable creatinine concentrations, including patients and those with serious co-morbid conditions.

Patients with extremes in muscle mass or diet.

The data above are obtained from the National Kidney Disease Education Program (NKDEP) which additionally recommends that when the eGFR is used in patients with extremes of body mass index for purposes of drug dosing, the eGFR should be multiplied by the estimated BMI. [facility] [place] CHEM PANEL Creatinine Lvl 1.0 0.5 - 1.4 06/14/2014 [facility] [place] CHEM PANEL ASPARTATE TRANSAMINASE 32 0 - 37 06/14/2014 [facility] [place] CHEM PANEL ALANINE AMINOTRANSFERASE 23 0 - 65 06/14/2014 [facility] [place] ELECTROLYTES AGAP 13.4 10.0 - 20.0 06/14/2014 [facility] [place] ELECTROLYTES Calcium Lvl 8.1 8.5 - 10.5 06/14/2014 [facility] [place] ELECTROLYTES CO2 25 24 - 32 06/14/2014 [facility] [place] ELECTROLYTES Potassium Lvl 4.4 3.5 - 5.1 06/14/2014 [facility] [place] ELECTROLYTES Chloride Lvl 100 95 - 109 06/14/2014 [facility] [place] ELECTROLYTES Sodium Lvl 134 135 - 145 06/14/2014 [facility] [place] ELECTROLYTES eGFR 93 06/14/2014 <sup>3</sup>Result Comment: The eGFR is calculated using the CKD-EPI formula. In most young, healthy individuals the eGFR will be >90 mL/min/1.73m2. The eGFR declines with age. An eGFR of 60-89 may be normal in some populations, particularly the elderly, for whom the CKD-EPI formula has not been extensively validated. Use of the eGFR is not recommended in the following populations:& lt;br/>
Individuals with unstable creatinine concentrations, including patients and those with serious co-morbid conditions.

Patients with extremes in muscle mass or diet.

The data above are obtained from the National Kidney Disease Education Program (NKDEP) which additionally recommends that when the eGFR is used in patients with extremes of body mass index for purposes of drug dosing, the eGFR should be multiplied by the estimated BMI. [facility] ELECTROLYTES BUN 9 7 - 22 06/14/2014 [facility] ELECTROLYTES Glucose Lvl 98 70 - 99 06/14/2014 <sup>4</sup>Interpretive Data: Adult reference range values reflect the clinical guidelines
of the [place] [employer]. [facility] ELECTROLYTES Creatinine Lvl 1.0 0.5 - 1.4 06/14/2014 [facility] HEMATOLOGY MCH 29.0 27.0 - 31.0 06/14/2014 [facility] HEMATOLOGY MPV 11.2 7.4 - 10.4 06/14/2014 [facility] HEMATOLOGY Platelet 340 133 - 450 06/14/2014 [facility] [place] HEMATOLOGY RDW 13.5 11.5 - 14.5 06/14/2014 [facility] [place] HEMATOLOGY MCHC 33.4 32.0 - 36.0 06/14/2014 [facility] HEMATOLOGY MCV 86.9 80.0 - 98.0 06/14/2014 [facility] HEMATOLOGY Hct 37.1 36.0 - 48.0 06/14/2014 [facility] [place] HEMATOLOGY WBC 10.6 3.7 - 10.4 06/14/2014 [facility] [place] HEMATOLOGY Hgb 12.4 12.0 - 16.0 06/14/2014 [facility] [place] HEMATOLOGY RBC 4.26 4.20 - 5.40 06/14/2014 [facility] [place] HEMATOLOGY Basophils # 0.1 0.0 - 0.2 06/14/2014 [facility] [place] HEMATOLOGY Lymphocytes 28.4 20.0 - 40.0 06/14/2014 [facility] [place] HEMATOLOGY Segs 63.5 45.0 - 75.0 06/14/2014 [facility] HEMATOLOGY Monocytes 7.4 2.0 - 12.0 06/14/2014 [facility] [place] HEMATOLOGY Basophils 0.6 0.0 - 1.0 06/14/2014 [facility] [place] HEMATOLOGY Eosinophils 0.1 0.0 - 4.0 06/14/2014 [facility] [place] HEMATOLOGY Monocytes # 0.8 0.0 - 0.8 06/14/2014 [facility] [place] HEMATOLOGY Segs-Bands # 6.7 1.5 - 8.1 06/14/2014 [facility] [place] HEMATOLOGY Lymphocytes # 3.0 1.0 - 5.5 06/14/2014 [facility] CHEM PANEL Glucose Lvl 105 70 - 99 06/14/2014 <sup>5</sup>Interpretive Data: Adult reference range values reflect the clinical guidelines
of the [place] [employer]. [facility] [place] CHEM PANEL BUN 10 7 - 22 06/14/2014 [facility] [place] CHEM PANEL Sodium Lvl 137 135 - 145 06/14/2014 [facility] [place] CHEM PANEL Calcium Lvl 8.7 8.5 - 10.5 06/14/2014 [facility] [place] CHEM PANEL CO2 23 24 - 32 06/14/2014 [facility] [place] CHEM PANEL Chloride Lvl 104 95 - 109 06/14/2014 [facility] [place] CHEM PANEL AGAP 14.9 10.0 - 20.0 06/14/2014 [facility] [place] CHEM PANEL Potassium Lvl 4.9 3.5 - 5.1 06/14/2014 [facility] [place] HEMATOLOGY Hct 40.5 36.0 - 48.0 06/14/2014 [facility] [place] HEMATOLOGY Hgb 13.7 12.0 - 16.0 06/14/2014 [facility] [place] CHEM PANEL AST 42 0 - 37 06/13/2014 [facility] CHEM PANEL ALT 37 0 - 65 06/13/2014 [facility] [place] CHEM PANEL LDH 320 98 - 192 06/13/2014 [facility] [place] CHEM PANEL Uric Acid 5.9 2.5 - 7.0 06/13/2014 [facility] HEMATOLOGY PT 11.2 12.0 - 14.7 06/13/2014 [facility] HEMATOLOGY INR 0.82 0.85 - 1.17 06/13/2014 <sup>9</sup>Interpretive Data: RECOMMENDED RANGES FOR PROTIME INR:
2.0-3.0 for most medical and surgical thromboembolic states.
2.5-3.5 for artificial heart valves and recurrent embolism.

INR SHOULD BE USED ONLY FOR PATIENTS ON STABLE ANTICOAGULANT THERAPY. [facility] HEMATOLOGY PTT 31.9 22.9 - 35.8 06/13/2014 <sup>11</sup>Interpretive Data: Heparin Therapeutic Range: 57 - 92 Seconds [facility] HEMATOLOGY Platelet 362 133 - 450 06/13/2014 [facility] HEMATOLOGY MPV 11.4 7.4 - 10.4 06/13/2014 [facility] HEMATOLOGY MCHC 34.9 32.0 - 36.0 06/13/2014 [facility] HEMATOLOGY RDW 13.5 11.5 - 14.5 06/13/2014 [facility] HEMATOLOGY MCH 30.1 27.0 - 31.0 06/13/2014 [facility] HEMATOLOGY MCV 86.1 80.0 - 98.0 06/13/2014 [facility] HEMATOLOGY RBC 5.35 4.20 - 5.40 06/13/2014 [facility] HEMATOLOGY WBC 7.2 3.7 - 10.4 06/13/2014 [facility] HEMATOLOGY Plt Morph Normal (06/13/14 4:02 PM) 06/13/2014 [facility] HEMATOLOGY Lymphocytes 41.8 20.0 - 40.0 06/13/2014 [facility] HEMATOLOGY Segs 50.3 45.0 - 75.0 06/13/2014 [facility] HEMATOLOGY RBC Morph Normal (06/13/14 4:02 PM) 06/13/2014 [facility] HEMATOLOGY Monocytes 6.8 2.0 - 12.0 06/13/2014 [facility] HEMATOLOGY Basophils 0.7 0.0 - 1.0 06/13/2014 [facility] HEMATOLOGY Eosinophils 0.4 0.0 - 4.0 06/13/2014 [facility] HEMATOLOGY Segs-Bands # 3.6 1.5 - 8.1 06/13/2014 [facility] [place] HEMATOLOGY Monocytes # 0.5 0.0 - 0.8 06/13/2014 [facility] [place] HEMATOLOGY Lymphocytes # 3.0 1.0 - 5.5 06/13/2014 [facility] BLOOD BANK RESULTS ABO/Rh A POS 06/12/2014 [facility] BLOOD BANK RESULTS Antibody Scrn Negative (06/12/14 7:00 AM) 06/12/2014 [facility] CHEM PANEL Uric Acid 5.5 2.5 - 7.0 06/12/2014 [facility] CHEM PANEL ALT 19 0 - 65 06/12/2014 [facility] [place] CHEM PANEL LDH 211 98 - 192 06/12/2014 [facility] [place] CHEM PANEL AST 24 0 - 37 06/12/2014 [facility] HEMATOLOGY Basophils # 0.1 0.0 - 0.2 06/12/2014 [facility] HEMATOLOGY Eosinophils # 0.1 0.0 - 0.5 06/12/2014 [facility] CHEM PANEL Bili Total 0.1 0.2 - 1.3 06/11/2014 [facility] CHEM PANEL Alk Phos 103 39 - 136 06/11/2014 [facility] CHEM PANEL Total Protein 4.3 6.4 - 8.4 06/11/2014 [facility] CHEM PANEL Albumin Lvl 1.3 3.5 - 5.0 06/11/2014 [facility] [place] CHEM PANEL Potassium Lvl 4.4 3.5 - 5.1 06/11/2014 [facility] CHEM PANEL CO2 24 24 - 32 06/11/2014 [facility] [place] CHEM PANEL Calcium Lvl 8.4 8.5 - 10.5 06/11/2014 [facility] CHEM PANEL Chloride Lvl 108 95 - 109 06/11/2014 [facility] CHEM PANEL Sodium Lvl 140 135 - 145 06/11/2014 [facility] CHEM PANEL BUN 8 7 - 22 06/11/2014 [facility] CHEM PANEL Glucose Lvl 84 70 - 99 06/11/2014 <sup>6</sup>Interpretive Data: Adult reference range values reflect the clinical guidelines
of the [place] [employer]. [facility] CHEM PANEL A/G Ratio 0.4 0.7 - 1.6 06/11/2014 [facility] CHEM PANEL B/C Ratio 10 6 - 25 06/11/2014 [facility] CHEM PANEL Globulin 3.0 2.0 - 4.0 06/11/2014 [facility] CHEM PANEL AGAP 12.4 10.0 - 20.0 06/11/2014 [facility] CHEM PANEL B/C Ratio 11 6 - 25 06/10/2014 [facility] CHEM PANEL A/G Ratio 0.5 0.7 - 1.6 06/10/2014 [facility] CHEM PANEL Globulin 3.2 2.0 - 4.0 06/10/2014 [facility] CHEM PANEL Albumin Lvl 1.5 3.5 - 5.0 06/10/2014 [facility] CHEM PANEL Total Protein 4.7 6.4 - 8.4 06/10/2014 [facility] CHEM PANEL Bili Total <0.1 0.2 - 1.3 06/10/2014 [facility] CHEM PANEL Alk Phos 114 39 - 136 06/10/2014 [facility] BLOOD BANK RESULTS ABO/Rh A POS 06/09/2014 [facility] BLOOD BANK RESULTS Antibody Scrn Negative (06/09/14 4:04 AM) 06/09/2014 [facility] BLOOD BANK RESULTS Antibody Scrn Negative (06/06/14 6:45 PM) 06/06/2014 [facility] BLOOD BANK RESULTS ABO/Rh A POS 06/06/2014 [facility] CHEM PANEL Bili Total 0.3 0.2 - 1.3 06/06/2014 [facility] CHEM PANEL Alk Phos 86 39 - 136 06/06/2014 [facility] CHEM PANEL Total Protein 4.4 6.4 - 8.4 06/06/2014 [facility] CHEM PANEL Albumin Lvl 1.4 3.5 - 5.0 06/06/2014 [facility] CHEM PANEL Globulin 3.0 2.0 - 4.0 06/06/2014 [facility] CHEM PANEL A/G Ratio 0.5 0.7 - 1.6 06/06/2014 [facility] CHEM PANEL B/C Ratio 15 6 - 25 06/06/2014 [facility] GLUCOSE TOLR Glu Challenge 122.0 <=140.0 mg/dL 06/03/2014 [facility] GLUCOSE TOLR Glu Challenge 106.0 <=140.0 mg/dL 06/03/2014 [facility] HEMATOLOGY Eosinophils # 0.1 0.0 - 0.5 06/02/2014 [facility] HEMATOLOGY Plt Morph Normal (05/27/14 9:32 AM) 05/27/2014 [facility] HEMATOLOGY RBC Morph Normal (05/27/14 9:32 AM) 05/27/2014 [facility] HEMATOLOGY INR 0.92 0.85 - 1.17 05/26/2014 <sup>10</sup>Interpretive Data: RECOMMENDED RANGES FOR PROTIME INR:
2.0-3.0 for most medical and surgical thromboembolic states.
2.5-3.5 for artificial heart valves and recurrent embolism.

INR SHOULD BE USED ONLY FOR PATIENTS ON STABLE ANTICOAGULANT THERAPY. [facility] HEMATOLOGY PT 12.3 12.0 - 14.7 05/26/2014 [facility] HEMATOLOGY PTT 29.4 22.9 - 35.8 05/26/2014 <sup>12</sup>Interpretive Data: Heparin Therapeutic Range: 57 - 92 Seconds [facility] IMMUNOLOGY Hep Bs Ag Negative *NA* (05/26/14 12:50 AM) Negative 05/26/2014 [facility] IMMUNOLOGY Treponemal Scr Non Reactive *NA* (05/26/14 12:50 AM) Non Reactive 05/26/2014 [facility] URINE CHEM U Prot/Creat 7.6 05/26/2014 [facility] URINE CHEM U Creatinine 178.1 05/26/2014 <sup>7</sup>Interpretive Data: No established reference ranges. [facility] URINE CHEM U Protein 1350.5 05/26/2014 <sup>8</sup>Interpretive Data: No established reference ranges. [facility] CHEM PANEL Uric Acid 5.7 2.5 - 7.0 05/23/2014 [facility] CHEM PANEL AST 19 0 - 37 05/23/2014 [facility] CHEM PANEL LDH 224 98 - 192 05/23/2014 [facility] CHEM PANEL eGFR 160 05/23/2014 <sup>1</sup>Result Comment: The eGFR is calculated using the CKD-EPI formula. In most young, healthy individuals the eGFR will be >90 mL/min/1.73m2. The eGFR declines with age. An eGFR of 60-89 may be normal in some populations, particularly the elderly, for whom the CKD-EPI formula has not been extensively validated. Use of the eGFR is not recommended in the following populations:& lt;br/>
Individuals with unstable creatinine concentrations, including patients and those with serious co-morbid conditions.

Patients with extremes in muscle mass or diet.

The data above are obtained from the National Kidney Disease Education Program (NKDEP) which additionally recommends that when the eGFR is used in patients with extremes of body mass index for purposes of drug dosing, the eGFR should be multiplied by the estimated BMI. [facility] CHEM PANEL Creatinine Lvl 0.5 0.5 - 1.4 05/23/2014 [facility] CHEM PANEL ALT 15 0 - 65 05/23/2014 [facility] HEMATOLOGY Basophils 0.7 0.0 - 1.0 05/23/2014 [facility] HEMATOLOGY Eosinophils # 0.1 0.0 - 0.5 05/23/2014 [facility] HEMATOLOGY Monocytes # 0.7 0.0 - 0.8 05/23/2014 [facility] [place] Lymphocytes # 2.0 1.0 - 5.5 05/23/2014 [facility] [place] HEMATOLOGY Segs-Bands # 4.0 1.5 - 8.1 05/23/2014 [facility] HEMATOLOGY Segs 58.0 45.0 - 75.0 05/23/2014 [facility] HEMATOLOGY Eosinophils 1.2 0.0 - 4.0 05/23/2014 [facility] HEMATOLOGY Monocytes 10.8 2.0 - 12.0 05/23/2014 [facility] HEMATOLOGY Lymphocytes 29.3 20.0 - 40.0 05/23/2014 [facility] HEMATOLOGY Hct 32.2 36.0 - 48.0 05/23/2014 [facility] HEMATOLOGY Hgb 10.8 12.0 - 16.0 05/23/2014 [facility] HEMATOLOGY MCH 28.9 27.0 - 31.0 05/23/2014 [facility] HEMATOLOGY MCV 86.0 80.0 - 98.0 05/23/2014 [facility] HEMATOLOGY Platelet 226 133 - 450 05/23/2014 [facility] HEMATOLOGY RDW 12.8 11.5 - 14.5 05/23/2014 [facility] HEMATOLOGY MCHC 33.6 32.0 - 36.0 05/23/2014 [facility] HEMATOLOGY MPV 10.4 7.4 - 10.4 05/23/2014 [facility] HEMATOLOGY WBC 6.9 3.7 - 10.4 05/23/2014 [facility] HEMATOLOGY RBC 3.75 4.20 - 5.40 05/23/2014 [facility] DRUG SCREEN U Phencyc Scr Negative *NA* (05/22/14 10:59 PM) Negative 05/23/2014 [facility] DRUG SCREEN U Opiate Scr Negative *NA* (05/22/14 10:59 PM) Negative 05/23/2014 [facility] DRUG SCREEN UDS Note See Note 3 *NA* (05/22/14 10:59 PM) 05/23/2014 <sup>3</sup>Interpretive Data: Drugs reported as positive have not been confirmed by a second
method and should be used for medical purposes only. To order
confirmation, contact laboratory.

note: Below are cut-off concentrations for all urine drugs of
abuse performed in the laboratory. Some drugs listed in the table
may not be included in this panel.

Description Cut-off concentration

Amphetamine 1000 ng/mL
Barbiturates 200 ng/mL
Benzodiazepines 300 ng/mL
Cocaine metabolites 300 ng/mL
Opiates 300 ng/mL
Phencyclidine 25 ng/mL
Propoxyphene 300 ng/mL
Marijuana metabolites 50 ng/mL
Methadone 300 ng/mL
Urine alcohol 20 mg/dL [facility] DRUG SCREEN U Cannab Scr Negative *NA* (05/22/14 10:59 PM) Negative 05/23/2014 [facility] DRUG SCREEN U Cocaine Scr Negative *NA* (05/22/14 10:59 PM) Negative 05/23/2014 [facility] DRUG SCREEN U Amph Scr Negative *NA* (05/22/14 10:59 PM) Negative 05/23/2014 [facility] DRUG SCREEN U Ce Scr Negative *NA* (05/22/14 10:59 PM) Negative 05/23/2014 [facility] DRUG SCREEN U Benzodia Scr Negative *NA* (05/22/14 10:59 PM) Negative 05/23/2014 [facility] IMMUNOLOGY Treponemal Scr Non Reactive *NA* (05/22/14 10:59 PM) Non Reactive 05/23/2014 [facility] IMMUNOLOGY Hep Bs Ag Negative *NA* (05/22/14 10:59 PM) Negative 05/23/2014 [facility] IMMUNOLOGY HIV. Negative *NA* (05/22/14 10:59 PM) Negative 05/23/2014 [facility] BLOOD BANK RESULTS ABO/Rh A POS 05/23/2014 [facility] BLOOD BANK RESULTS Antibody Scrn Negative (05/22/14 10:54 PM) 05/23/2014 [facility] URINE CHEM U Protein 7.6 05/23/2014 <sup>5</sup>Interpretive Data: No established reference ranges. [facility] URINE CHEM U Creatinine 38.7 05/23/2014 <sup>4</sup>Interpretive Data: No established reference ranges. [facility] URINE CHEM U Prot/Creat 0.2 05/23/2014 [facility] CHEM PANEL ALT 15 0 - 65 05/22/2014 [facility] CHEM PANEL AST 16 0 - 37 05/22/2014 [facility] CHEM PANEL eGFR 151 05/22/2014 <sup>2</sup>Result Comment: The eGFR is calculated using the CKD-EPI formula. In most young, healthy individuals the eGFR will be >90 mL/min/1.73m2. The eGFR declines with age. An eGFR of 60-89 may be normal in some populations, particularly the elderly, for whom the CKD-EPI formula has not been extensively validated. Use of the eGFR is not recommended in the following populations:& lt;br/>
Individuals with unstable creatinine concentrations, including patients and those with serious co-morbid conditions.

Patients with extremes in muscle mass or diet.

The data above are obtained from the National Kidney Disease Education Program (NKDEP) which additionally recommends that when the eGFR is used in patients with extremes of body mass index for purposes of drug dosing, the eGFR should be multiplied by the estimated BMI. [facility] CHEM PANEL Creatinine Lvl 0.6 0.5 - 1.4 05/22/2014 [facility] CHEM PANEL Uric Acid 5.3 2.5 - 7.0 05/22/2014 [facility] CHEM PANEL LDH 192 98 - 192 05/22/2014 [facility] HEMATOLOGY Basophils # 0.1 0.0 - 0.2 05/22/2014 [facility] HEMATOLOGY Eosinophils # 0.1 0.0 - 0.5 05/22/2014 [facility] HEMATOLOGY Monocytes # 0.9 0.0 - 0.8 05/22/2014 [facility] HEMATOLOGY Basophils 0.7 0.0 - 1.0 05/22/2014 [facility] HEMATOLOGY Lymphocytes # 1.8 1.0 - 5.5 05/22/2014 [facility] HEMATOLOGY Eosinophils 0.8 0.0 - 4.0 05/22/2014 [facility] HEMATOLOGY Segs-Bands # 4.6 1.5 - 8.1 05/22/2014 [facility] HEMATOLOGY Monocytes 12.1 2.0 - 12.0 05/22/2014 [facility] HEMATOLOGY Segs 62.2 45.0 - 75.0 05/22/2014 [facility] HEMATOLOGY Lymphocytes 24.2 20.0 - 40.0 05/22/2014 [facility] HEMATOLOGY MCH 28.9 27.0 - 31.0 05/22/2014 [facility] HEMATOLOGY MCV 84.3 80.0 - 98.0 05/22/2014 [facility] HEMATOLOGY Platelet 227 133 - 450 05/22/2014 [facility] HEMATOLOGY MPV 10.0 7.4 - 10.4 05/22/2014 [facility] HEMATOLOGY Hct 33.7 36.0 - 48.0 05/22/2014 [facility] HEMATOLOGY WBC 7.4 3.7 - 10.4 05/22/2014 [facility] HEMATOLOGY RBC 3.99 4.20 - 5.40 05/22/2014 [facility] HEMATOLOGY Hgb 11.5 12.0 - 16.0 05/22/2014 [facility] HEMATOLOGY RDW 12.8 11.5 - 14.5 05/22/2014 [facility] HEMATOLOGY MCHC 34.2 32.0 - 36.0 05/22/2014 [facility] BLOOD BANK RESULTS ABO/Rh A POS 03/03/2014 [place] URINE AND STOOL UA Nitrite Negative (03/02/14 8:20 PM) Negative 03/03/2014 [facility] URINE AND STOOL UA Urobilinogen 1.0 0.1 - 1.0 03/03/2014 [facility] URINE AND STOOL UA Leuk Est Negative (03/02/14 8:20 PM) Negative 03/03/2014 [facility] URINE AND STOOL UA Color Yellow *NA* (03/02/14 8:20 PM) Yellow 03/03/2014 [facility] URINE AND STOOL UA Ketones Negative mg/dL Negative mg/dL 03/03/2014 [facility] URINE AND STOOL UA Bili Negative *NA* (03/02/14 8:20 PM) Negative 03/03/2014 [facility] URINE AND STOOL UA Blood Negative (03/02/14 8:20 PM) Negative 03/03/2014 [facility] URINE AND STOOL UA Protein Negative mg/dL Negative mg/dL 03/03/2014 [facility] URINE AND STOOL UA Glucose Negative mg/dL Negative mg/dL 03/03/2014 [facility] URINE AND STOOL UA Turbidity Clear (03/02/14 8:20 PM) Clear 03/03/2014 [facility] URINE AND STOOL UA pH 6.0 5.0 - 8.0 03/03/2014 [facility] URINE AND STOOL UA Spec Grav 1.010 <=1.030 03/03/2014 [facility] URINE AND STOOL UA Mucus None Seen (03/02/14 8:20 PM) None Seen 03/03/2014 [facility] URINE AND STOOL UA Bacteria Occasional /HPF None Seen /HPF 03/03/2014 [facility] URINE AND STOOL UA RBC 0-2 /HPF 0 - 2 03/03/2014 [facility] URINE AND STOOL UA WBC None Seen (03/02/14 8:20 PM) None Seen 03/03/2014 [facility] URINE AND STOOL UA Sq Epi None Seen (03/02/14 8:20 PM) Few 03/03/2014 [facility] URINE AND STOOL Micro? Performed (03/02/14 8:20 PM) 03/03/2014 [facility] [place] [id number] 03/03/2014 <sup>1</sup>Interpretive Data: Reference Range:
Male 0 - 5 mIU/mL
Non- Female 0 - 5 mIU/mL

Note: hCG result should be used in conjunction with symptoms, results
of other tests, and clinical impressions.

Weeks of Gestation hCG (mIU/mL)

3 6 - 71
4 10-750
5 217 - 7,138
6 158 -31,795
7 3,697 - 163,563
8 32,065 - 149,571
9 63,803 - 151,410
10 46,506 - 186,977
11 27,832 - 210,612
14 13,950 - 62,530
15 12,039 - 70,971
16 9,040 - 56,451
17 8,175 - 55,868
18 8,099 - 58,[address] [facility] Lymphocytes # 1.4 1.0 - 5.5 03/03/[address] [facility] Monocytes # 0.4 0.0 - 0.8 03/03/[address] [facility] Segs-Bands # 2.8 1.5 - 8.1 03/03/[address] [facility] Lymphocytes 29.3 20.0 - 40.0 03/03/[address] [facility] Segs 60.0 45.0 - 75.0 03/03/[address] [facility] Eosinophils 0.8 0.0 - 4.0 03/03/[address] [facility] Monocytes 9.1 2.0 - 12.0 03/03/[address] [facility] Basophils 0.8 0.0 - 1.0 03/03/[address] [facility] MCHC 34.6 32.0 - 36.0 03/03/[address] [facility] MCH 28.6 27.0 - 31.0 03/03/[address] [facility] Platelet 259 133 - 450 03/03/[address] [facility] RDW 12.7 11.5 - 14.5 03/03/[address] [facility] MPV 9.5 7.4 - 10.4 03/03/[address] [facility] Hgb 11.5 12.0 - 16.0 03/03/[address] [facility] RBC 4.01 4.20 - 5.40 03/03/[address] [facility] WBC 4.7 3.7 - 10.4 03/03/[address] [facility] Hct 33.2 36.0 - 48.0 03/03/[address] [facility] MCV 82.6 81.0 - 99.0 03/03/2014 [facility] IMMUNOLOGY CDC HIV 4th GEN Negative (03/02/14 8:16 PM) Negative 03/03/2014 [facility] Pathology Reports No Data Provided for This Section Diagnostic Reports Report Value Date Source age OBSTETRICAL ULTRASOUND. INDICATION: , size and date. Acute abdominal pain. TECHNIQUE AND FINDINGS: Limited multiple static images from an obstetrical ultrasound for interpretation. A single live intrauterine is seen in variable presentation. The cervix appears closed estimated at approximately 3.0 cm in length. The placenta is located fundal. No evidence of placenta previa is present. The amniotic fluid appears adequate. Limited evaluation of anatomy. heart rate is detected at 154 beats per minute. biometric measurements: BPD N/A cm. Not visualized. Head circumference 10.42 cm. Abdominal circumference 8.66 cm. Femur length 1.98 cm. Estimated composite gestational age 15 weeks and 2 days. The due date is at 08/22/2014 by ultrasound. Estimated weight 118.6 g. IMPRESSION: Single live intrauterine demonstrated, approximately 15 weeks 2 days estimated composite gestational age. Close clinical and short interval follow-up OB ultrasound recommended. GENERAL OBSERVATIONS REGARDING ULTRASOUND: 1. A normal or negative sonogram report should not delay further investigation of a clinically suspicious or abnormal . 2. position or overlap of parts may prevent complete evaluation of the fetus. 3. Congenital and developmental abnormalities are not always sonographically demonstrable. 4. Repeat sonograms may be necessary depending on the clinical development during . SL: 12 03/02/2014 [facility] Consultation Notes No Data Provided for This Section Discharge Summaries No Data Provided for This Section History and Physicals No Data Provided for This Section Vital Signs Vital Sign Value Date Comments Source Respitory Rate 18 12/10/2015 [facility] Heart Rate 94 12/10/2015 [facility] Systolic (mm Hg) 135 12/10/2015 [facility] Diastolic (mm Hg) 88 12/10/2015 [facility] Temperature Oral (F) 97.9 F 12/10/2015 [facility] Systolic (mm Hg) 128 12/10/2015 [facility] Diastolic (mm Hg) 87 12/10/2015 [facility] Temperature Oral (F) 97.9 F 12/10/2015 [facility] Heart Rate 100 12/10/2015 [facility] Respitory Rate 18 12/10/2015 [facility] Systolic (mm Hg) 138 12/10/2015 [facility] Diastolic (mm Hg) 90 12/10/2015 [facility] Respitory Rate 18 12/10/2015 [facility] Heart Rate 102 12/10/2015 [facility] Temperature Oral (F) 97.9 F 12/10/2015 [facility] Weight 77.273 12/06/2015 [facility] BMI Calculated 28.35 12/06/2015 [facility] Height 165.1 cm 12/06/2015 [facility] Respitory Rate 18 12/03/2015 [facility] Systolic (mm Hg) 160 12/03/2015 [facility] Diastolic (mm Hg) 86 12/03/2015 [facility] Temperature Oral (F) 97.9 F 12/03/2015 [facility] Heart Rate 80 12/03/2015 [facility] Respitory Rate 18 12/03/2015 [facility] Temperature Oral (F) 98.1 F 12/03/2015 [facility] Heart Rate 99 12/03/2015 [facility] Systolic (mm Hg) 141 12/03/2015 [facility] Diastolic (mm Hg) 82 12/03/2015 [facility] Respitory Rate 18 12/03/2015 [facility] Systolic (mm Hg) 145 12/03/2015 [facility] Diastolic (mm Hg) 79 12/03/2015 [facility] Heart Rate 102 12/03/2015 [facility] Temperature Oral (F) 98.2 F 12/03/2015 [facility] BMI Calculated 28.35 12/01/2015 [facility] Weight 77.273 12/01/2015 [facility] Height 165.1 cm 12/01/2015 [facility] Respitory Rate 20 06/17/2014 [facility] Heart Rate 129 06/17/2014 [facility] Temperature Oral (F) 98.6 F 06/17/2014 [facility] Systolic (mm Hg) 126 06/17/2014 [facility] Diastolic (mm Hg) 78 06/17/2014 [facility] Systolic (mm Hg) 143 06/17/2014 [facility] Heart Rate 109 06/17/2014 [facility] Respitory Rate 20 06/17/2014 [facility] Diastolic (mm Hg) 103 06/17/2014 [facility] Temperature Oral (F) 98.3 F 06/17/2014 [facility] Diastolic (mm Hg) 91 06/17/2014 [facility] Heart Rate 103 06/17/2014 [facility] Respitory Rate 16 06/17/2014 [facility] Systolic (mm Hg) 135 06/17/2014 [facility] Temperature Oral (F) 97.6 F 06/17/2014 [facility] BMI Calculated 23.51 05/26/2014 [facility] Weight 64.091 05/26/2014 [facility] Height 165.1 cm 05/26/2014 [facility] Systolic (mm Hg) 131 05/23/2014 [facility] Diastolic (mm Hg) 79 05/23/2014 [facility] Respitory Rate 18 05/23/2014 [facility] Diastolic (mm Hg) 84 05/23/2014 [facility] Systolic (mm Hg) 133 05/23/2014 [facility] Heart Rate 75 05/23/2014 [facility] Temperature Oral (F) 97.8 F 05/23/2014 [facility] Heart Rate 71 05/23/2014 [facility] Diastolic (mm Hg) 88 05/23/2014 [facility] Systolic (mm Hg) 140 05/23/2014 [facility] Heart Rate 74 05/23/2014 [facility] Temperature Oral (F) 98.2 F 05/23/2014 [facility] Respitory Rate 18 05/23/2014 [facility] Temperature Oral (F) 98.9 F 05/23/2014 [facility] Weight 64.091 05/22/2014 [facility] Height 165.1 cm 05/22/2014 [facility] BMI Calculated 23.51 05/22/2014 [facility] Respitory Rate 17 05/22/2014 [facility] Temperature Oral (F) 98.0 F 03/03/2014 [facility] Systolic (mm Hg) 118 03/03/2014 [facility] Diastolic (mm Hg) 70 03/03/2014 [facility] Respitory Rate 18 03/03/2014 [facility] Heart Rate 88 03/03/2014 [facility] Diastolic (mm Hg) 75 03/03/2014 [facility] Systolic (mm Hg) 119 03/03/2014 [facility] Respitory Rate 18 03/03/2014 [facility] Heart Rate 101 03/03/2014 [facility] Weight 59.091 03/03/2014 [facility] BMI Calculated 21.03 03/03/2014 [facility] Height 167.64 cm 03/03/2014 [facility] Systolic (mm Hg) 119 03/03/2014 [facility] Heart Rate 102 03/03/2014 [facility] Diastolic (mm Hg) 75 03/03/2014 [facility] Temperature Oral (F) 99.3 F 03/03/2014 [facility] Respitory Rate 20 03/03/2014 [facility] Encounters Location Location Details Encounter Type Encounter Number Reason For Visit Attending Provider ADM Date DC Date Status Source [facility] [id number] Jayy Palumbo 03/03/2014 03/03/2014 [facility] OBS Observation Patient [id number] Thanh Reilly 05/22/2014 05/23/2014 [facility] Inpatient [id number] Margarita De Los Santos 05/26/2014 06/17/2014 [facility] OBS Observation Patient [id number] Andres Mayberry 12/01/2015 12/03/2015 [facility]patient [id number] Jatinder GanCharmaineDuncan 12/06/2015 12/10/2015 [facility] Procedures No Data Provided for This Section Assessment and Plan Assessment and Plan Date Source Extracted from:Title: C/S Progress Note Author: Kirsten Yates MD Date: 12/10/15 Patient: MIKHAIL CERVANTES Age: 20 years Sex: Female : 1995 Associated Diagnoses: None Author: Kirsten Yates MD Subjective Pt. doing well, no complaints. Meeting all post-op milestones. Denies s/sx of anemia and PreE. Physical Examination VS/Measurements Inpatient Vital signs (ST) Vitals Tmp(F) Pulse BP RR SpO2 FIO2 12/09 04:00 97.9 100 128/87 18 99 --- 12/09 00:49 97.9 102 138/90 18 98 --- 12/08 20:55 98.2 104 132/85 19 97 --- 12/08 16:18 98.2 97 142/86 18 99 --- 12/08 12:10 97.9 99 140/88 18 98 --- 24 Hr Tmax: 98.2F (36.78c) at 12/08 20:55 Vital Signs are the last 5 in the past 48 hours. Exam: incision: Intact, Clean, Dry. Lochia: WNL. Uterus: Firm ( below umbilicus ). General: Alert and oriented, No acute distress. Respiratory: Lungs are clear to auscultation, Breath sounds are equal. Cardiovascular: Normal rate, Regular rhythm. Gastrointestinal: Soft, Normal bowel sounds, appropriately tender. Musculoskeletal No tenderness. No swelling. Review / Management Results review: Labs (Last four charted values) WBC 9.3 (DEC 04) Hgb L 11.4 (DEC 05) L 11.9 (DEC 04) Hct L 34.9 (DEC 05) L 35.7 (DEC 04) Plt 256 (DEC 04) Cr 0.58 (DEC 04) . Impression and Plan A/P: 20yo now s/p repeat LTCS at 31wk 2/2 preeclampsia with severe features with unresolved CHANDLER 1. POD#4: AFVSS 2. Pain: Controlled 3. Heme: Hgb 11.9--> EBL 700cc--> 11.4. No s/sx of anemia 4. GI/: Gumaro regular diet, +flatus; voiding freely 5. Pre-eclampsia with severe features: Based on multiple severe range BPs requiring IV labetalol and CHANDLER unresolved w Tylenol. On Procardia 30XL. BPs normal to mild range since delivery. No longer with sx of preE. PIH panel negative and UPC 14.1 on admission. S/p Mag for 24hrs for seizure ppx. 6. Rh+/ rubella immune/ BrBo/ Depo today, will consider Nexplanon for LARC 7. Continue care, discharge home today Patient seen and d/w Dr. Catalino Yates MD PGY-2 Addendum by Joanna Truong MD on 12/10/2015 10:36 I have seen and evaluated this patient with the resident. I reviewed her laboratory and imaging studies. I agree with the DX. and plan as described in the resident note. Joanna truong [facility] attending Addendum by Kirsten Yates MD on 12/11/2015 09:32 Dictation # [id number] Kirsten Yates MD PGY-2 Extracted from:Title: Clinical Document Author: Jatinder Edwards MD Date: 12/05/15 R3 OB Triage H&P LMP: 05/03/16 EDC: 02/04/16 EGA: 31wk2d CC: elevated BP, SOB HPI: 20yo at 31wk2d dated by LMP c/w doc 20wk sono with preeclampsia without severe features, h/o preeclampsia in prior requiring delivery at 30wks, who presents to triage with c/o elevated BPs with DBPs of 110 at home. Patient was recently admitted which is when she was diagnosed with preeclampsia without severe features based off of mild range BPs and UPC 0.6. Patient had mostly wnl BPs after admission and was DCed to home on 12/02. She has been checking her BPs at home regularly. Denies sx of preeclampsia at this time including CHANDLER, vision changes, N/V, RUQ pain, epigastric pain. Of note patient initially had SOB as a presenting sx but reports this sx has currently resolved. Denies CP or palpitations. Denies LOF or VB or contractins. Endorses good FM. PNC: Dr. Mayberry--> [place] to [place] after dx with preE without severe fatures 1. Dated as above 2. Preeclampsia with severe feature: Dx on admission today. Previously dx with preE without severe features during admission 11/30-. H/o early onset severe preE in prior - Delivered at 30w4d 2/2 pre-E. Not on ASA. Baseline labs not available. PIH neg admission , UPC 0.6 at that time. S/p BMZ X2 11/30-, no Mag at that time. 3. PNLs: Reports abnormal 1 hr GTT, just performed 3 hr GTT results not known. Otherwise labs wnl. 4. Prior CS: Doc LTCS 2/2 NRFHTs. IOL 2/2 Pre-E with severe features. Desires repeat CS as MOD. Declinse . 5. MFM sono 12/01: Cephalic; 1618g; 36%; KALEY: 10.6; BPP: 04/17 6. Darnell/ BCM unsure: declines BTL OBHx: 2014: Female, Primary doc LTCS at 30 wks 2/2 NRFHTs, comp by severe pre-E/IUGR, 2#1oz (1020g), [facility]: [id number]/Reg/3d Denies STDs/abnormal paps PMH: denies PSH: CS X1 Meds: PNV All: NKDA, denies latex/ iodine allergies SH: Negx3 FH:Denies Physical Examination Vitals Tmp(F) Tmp(C) Ttype BP MAP Pulse RR SpO2 FIO2 ETCO2 12/04 22:03 98.8 37.11 oral 186/116 --- 81 18 --- --- --- 24 Hr Tmax: 98.8F (37.11c) at 12/04 22:03 24 Hr Tmin: 98.8F (37.11c) at 12/04 22:03 36 Hr Tmax: 98.8F (37.11c) at 12/04 22:03 36 Hr Tmin: 98.8F (37.11c) at 12/04 22:03 Vital Signs are the last 5 in the past 48 hours. Weights are the last 5 in 60 days, plus initial. Date Wt(kg) Wt(lb) Ht(cm) Ht(in) Method BMI BSA 12/04 (initial) 77.27 170.00 Estimated 28.4 1.88 12/04 165.10 65.00 Stated repeat BPs in order from first to last: 184/114, 180/114, 168/117, 182/103, 172/103, 173/10, 173/104,179/108, 174/108, 178/112, 181/107, 168/100, 168/102, 171/107, 157/107, 17/95, 157/90, 177/108, 171/109, 174/107, 164/103, 163/101, 159/98, 159/99, 151/94, 146/95, 152/98, 162/101 Satting 97% on RA Gen: NAD CV: RRR Resp: CTAB GI: soft/ gravid/ nontender Ext: nontender calves bilat SVE: ft/50/high Sono: cephalic, anterior placenta FHTs: 150s/ no accels/ mod btbv/ morphologic lates to as low as the 50s after contractions approx [id number] which respond to oxygen, maternal positioning and fluid bolus [place]: occ ctx Accucheck: 105 BSUS: cephalic A/P: 20yo at 31wk2d dated by LMP c/w doc 20wk sono with preeclampsia without severe features, h/o preeclampsia in prior requiring delivery at 30wks, who presents to triage with c/o elevated BPs now with dx of preeclampsia with severe features 1) Preeclampsia with severe features: Multiple severe range BPs in triage requiring IV labetalol 20//80. Has also been started on procardia 30XL at this time. Will continue to monitor BPs q 15min. Mag ordered with 6g load and 2g/hr (Cr 0.58) for seizure ppx. Repeat PIH panel neg and repeat UPC 14.1 (was 0.6 last week). Initially denies sx of preE however began to have a CHANDLER in triage which is being tx with ofirmev. Patient aware she will remain in house until delivery @ 34wks or sooner as needed. 2) CAT 2 FHTs: Continuous monitoring. Will be for possible CS if lates do not resolve. NPO. Seen by anesthesia. Pedi aware and will see ptnt tonight. Recieving IVF bolus, lateral positioning, oxygen mask in place. 3) SOB: since resolved. Satting 97% on RA. No other associated sx. 4) Prematurity: S/p BMZ X2 11/30-. Not yet eligible for rescue course at this time. Receiving Mag now for seizure ppx and BULK PICKER. 5) Prior CS x1: Doc LTCS 2/2 NRFHTs. Desires repeat. Declines . R/b/a d/w ptnt including but not limited to risk of bleeding, infection, need for transfusion and associated risks of acquisition of bloodbourne infection such as HIV or hepatptis and risk of transfusion reaction such as fever or end-organ damage, risk of injury to surrounding structures including but not limited to bowel, bladder, ovaries, nerves, vessels, fallopian tubes, ureters and baby. Patient verbalizes understanding and wishes to proceed with CS when delivery becomes necessary. 6) Failed 1 hr GTT: Failed 1hr: has taken 3hr but does not know result, accucheck 105 on admission. Will contact Dr. Woods office in the AM for results. 7) T3HIV neg 8) cephalic/ 1618g on 12/01 MFM Sono 9) Admit for continuous monitoring, serial BPs and Mag for seizure ppx and BULK PICKER. Will be for repeat CS if FHTs do not improve with resuscitation. D/w Dr Lazo who agrees w above plan Olga Mejia MD, PGY3 R4 Addendum: 20yo at 31wk2d with preeclampsia with severe features given need for multiple doses of IV meds. No sx pre-e currenlty. MgSO4 has been started for sz ppx and BULK PICKER. s/p BMZ on 11/30-. Not due for rescue course. Will start procardia 30XL qd. BPs now nl-mild range. Pt also with cat II strip based on several spontaneous decles up to [id number]. Will keep on continuous monitoring at this time and move toward delivery if FHTs do not improve or BPs unable to be controlled. Gunjan Kingsley, PGY4 Attending Note Pt discussed with Ob team, agree with plan. Admit for preeclampsia with severe features. s/p blood pressure control with IV meds, start po meds. Continue Magnesium at this time. Labs normal. Jatinder Edwards MD 12/10/2015 [facility] Extracted from:Title: Clinical Document Author: Joellen Mejia MD Date: 12/03/15 Strip Review FHT: 150, moderate variability; + accelerations, no decelerations [place]: No contractions Reassuring and reactive strip. May discharge home. 12/03/2015 [facility] Extracted from:Title: SCU Progress Note Author: Carola Ponce MD Date: 06/17/14 R2 SCU Note POD#4 S: Pt doing well. No complaints. Pain well controlled, gumaro reg diet w/o n/v, +flatus. Voiding/ambulating w/o difficulty. Denies headaches, RUQ pain or visual disturbances. O: Vitals Tmp(F) Pulse BP RR SpO2 FIO2 06/17 06:30 97.6 103 135/91 16 --- --- 06/17 02:10 98.2 112 134/82 18 --- --- 06/16 21:40 98.4 120 139/90 18 --- --- 06/16 17:58 98.4 112 133/82 18 --- --- 06/16 14:23 98.6 125 142/88 18 --- --- 24 Hr Tmax: 99.1F (37.28c) at 10/07 10:27 Vital Signs are the last 5 in the past 48 hours. NAD RRR CTAB ABd soft, NT, ND, FF Inc c/d/i, steri strips in place Calves nontender 19yo s/p Primary LTCS via pfannenstiel incision 2/2 Pre E with severe features, NRFHT 1. POD#4: AFVSS. 2. Heme. Hb 12.4 --> EBL 500 --> Hb 11.2 3. Pain. Well controlled 4. GI/. Gumaro reg diet w/o n/v, +flatus. Voiding freely 5. Pre E with severe features: S/P mag. BPs in nml-mild range, on Procardia XL 90mg qD. Creatinine up to 1.2 prior to delivery, down to 1.0 after delivery. Denies sxs PIH. 6. Rh+ / Rub Imm / Darnell / BCM undecided 7. Dispo. Dicharge home today. Carola Ponce MD, PGY-2 Addendum by Joanna Truong MD on 06/17/2014 10:44 I have seen and evaluated this patient with the resident. I reviewed her laboratory and imaging studies. I agree with the DX. and plan as described in the resident note. Joanna REZA attending 06/17/2014 [facility] Extracted from:Title: Clinical Document Author: Olga Mejia MD Date: 05/23/14 R2 [facility] Progress Note S: No complaints. CHANDLER and CP completely resolved. Denies other sx of preE. No ctx or other complaints. O: Vitals Tmp(F) Tmp(C) Ttype BP MAP Pulse RR SpO2 FIO2 ETCO2 05/23 04:02 ---- ---- ---- 118/65 --- 76 -- --- --- --- 05/23 03:32 ---- ---- ---- 116/56 --- 81 -- --- --- --- 05/23 03:03 ---- ---- ---- 124/58 --- 92 -- --- --- --- 05/23 02:02 ---- ---- ---- 120/60 --- 75 -- --- --- --- 05/23 01:32 ---- ---- ---- 109/55 --- 83 -- --- --- --- 24 Hr Tmax: 99.4F (37.44c) at 05/22 18:15 24 Hr Tmin: 98.9F (37.17c) at 05/22 23:31 36 Hr Tmax: 99.4F (37.44c) at 05/22 18:15 36 Hr Tmin: 98.9F (37.17c) at 05/22 23:31 Vital Signs are the last 5 in the past 48 hours. Weights are the last 5 in 60 days, plus initial. Date Wt(kg) Wt(lb) Ht(cm) Ht(in) Method BMI BSA 05/22 (initial) 64.09 141.00 165.10 65.00 Stated 23.5 1.71 Gen: NAD, CV: RRR, Resp: CTAB, GI: soft/ gravid, Ext: nontender calves bilat Labs: HIV neg, HBsAg neg, A+/neg, Hgb 11.5, Treponemal pending, UDS neg, PIH neg, UPC 0.2 FHTs: 150s/ +accels/ mod btbv/ occ variables [place]: no ctx A/P: 19yo @ 27wk4d d/b LMP c/w documented 10wk sono with newly diagnosed GHTN and c/o chest pain on presentation 1) GHTN: Ptnt with new onset elevated BPs nml to occ severe range with systolic highest 161. Has not required IV meds. UPC 0.2, PIH panel neg. Initially had CHANDLER on presentation however ptnt declined Tylenol as her CHANDLER self resolved. Denies other sx of preeclampsia. Admitted for 24hr observation, since then BPs mostly wnl to low mild range. Will not start on antihypertensives at this time. UDS on admission neg. BPs since admission mostly wnl range. 2) Chest pain: EKG NSR with nonspecific t wave abnormality. Satting 100% on RA. CP on and off, felt like a sharp, stabbing sensation, affected by positioning. Likely pleuritic. No evidence of [place], CP currently resolved. 3) Br/ +epi/ undecided BCM 4) IUP @ 27wk4d: FHTs reassuring 5) Likely D/C later today if BPs remain well controlled. Will need close follow up in clinic. Olga Mejia MD, PGY2 Addendum by Foreign Rooney MD on 05/23/2014 11:16 Patient seen and examined. No pain at this time. Relieved with Pepcid at 8 AM. Some BP's in mildly elevated range. Plan: 1- May be D/C home 2- F/U with Dr Koenig 3- Ambulatory BP monitoring to bring to Clinic 4- Pepcid PO PRN Extracted from:Title: Clinical Document Author: Thanh Reilly MD Date: 05/22/14 R2 Triage H&P LMP: 11/11/13 AGUSTINA: 08/18/14 EGA: 27wk3d cc: chest pain HPI: 19yo @ 27wk3d d/b LMP c/w reported 21wk isaac presents to triage with complaints of chest pain that started 2d ago. Located on the right side of her chest, feels like a stabbing pain, worse with lying down. Does not feel like something is sitting on her chest. No radiation to chin or shoulder. CP not reproducible. Also endorses SOB since feeling the CP as well. Denies cough, congestions, URI sx. Also endorses CHANDLER 6-7/10, frontal midline, constant. Denies vision changes, N/V. Denies h/o elevated BPs ever. Also reports abdominal tightness. Denies LOF, VB, abnormal discharge, dysuria. Endorses good FM. PNC: Dr. Koenig 1) Dated as above 2) Denies overnight hospitalizations this 3) US wnl per ptnt 4) PNL wnl per ptnt 5) UTI this , s/p tx and neg [place] 6) Br/ +epi/ undecided BCM OB Hx: current [employer] Hx: 15/ reg/ 3d; Denies h/o STDs; Denies h/o abnormal paps PMH: denies PSH: denies All: NKDA Meds: none SH: neg X3 FH: denies Physical Exam Vitals Tmp(F) Tmp(C) Ttype BP MAP Pulse RR SpO2 FIO2 ETCO2 05/22 18:15 99.4 37.44 oral 153/95 --- 68 17 99 --- --- 24 Hr Tmax: 99.4F (37.44c) at 05/22 18:15 24 Hr Tmin: 99.4F (37.44c) at 05/22 18:15 36 Hr Tmax: 99.4F (37.44c) at 05/22 18:15 36 Hr Tmin: 99.4F (37.44c) at 05/22 18:15 Vital Signs are the last 5 in the past 48 hours. Weights are the last 5 in 60 days, plus initial. Date Wt(kg) Wt(lb) Ht(cm) Ht(in) Method BMI BSA 05/22 (initial) 64.09 141.00 165.10 65.00 Stated 23.5 1.71 BPs: 142-161/89-100, Sat 100% on RA, Pulse 90s Gen: NAD CV: RRR Resp: CTAB GI: soft/ gravid Ext: nontender calves bilat FHTs: 140s/ +accels/ mod btbv/ occ variables [place]: no ctx SVE: ft/th/high EKG: NSR with nonspecific t wave abnormality 36hr Labs 05/22 1900 U Creatinine 38.7 U Protein 7.6 U Prot/Creat 0.2 05/22 1853 ALT 15 AST 16 Creatinine Lvl 0.6 eGFR 151 LDH 192 Uric Acid 5.3 WBC 7.4 RBC 3.99 L Hgb 11.5 L Hct 33.7 L MCV 84.3 MCH 28.9 MCHC 34.2 RDW 12.8 Platelet 227 MPV 10.0 Segs 62.2 Monocytes 12.1 H Lymphocytes 24.2 Eosinophils 0.8 Basophils 0.7 Segs-Bands # 4.6 Lymphocytes # 1.8 Monocytes # 0.9 H Eosinophils # 0.1 Basophils # 0.1 A/P: 19yo @ 27wk3d d/b LMP c/w reported 21wk isaac presents to triage with complaints of chest pain and new onset elevated BPs 1) GHTN: Ptnt with new onset elevated BPs nml to occ severe range with systolic highest 161. Has not required IV meds. UPC 0.2, PIH panel neg. Initially had CHANDLER on presentation however ptnt declined Tylenol as her CHANDLER self resolved. Denies other sx of preeclampsia. Will admit for 24hr observation. 2) Chest pain: EKG NSR with nonspecific t wave abnormality. Satting 100% on RA. No evidence of [place]. Reports pain is sharp, stabbing, affected by positioning. Likely pleuritic. 3) UTI this , s/p tx and neg [place]. No sx currently. 4) Br/ +epi/ undecided BCM 5) IUP @ 27wk3d: FHTs reassuring 6) Ptnt d/w Dr. Jimenez and Dr. Reilly who agree with the above plan Olga Mejia MD, PGY2 05/23/2014 [facility] Plan of Care No Data Provided for This Section Social History Social History Date Source Social History TypeResponse Employment/School Highest education level: High school. Smoking Status Never smoker; Exposure to Tobacco Smoke None; Cigarette Smoking Last 365 Days No; Reg Smoking Cessation Counseling Yes 05/22/2014 [facility] Family History No Data Provided for This Section Advance Directives No Data Provided for This Section Functional Status No Data Provided for This Section
--- OUTSIDE RECORDS SUMMARY | 2019-03-16 13:13 | XMS REPORT | Summary of Care ---
Author Organization Unknown Address Unknown Phone Unavailable Encounter ALLEN Munoz(ADDISON) [id number] Date(s): 05/25/14 - 06/17/[address] Discharge Disposition: Home Physician Attending: Margarita De Los Santos MD Physician Admitting: Margarita De Los Santos MD Reason for Visit ELEVATED BP Vital Signs 1 2 3 Most recent to oldest [Reference Range]: 165.1 cm (05/26/14 12:01 AM) Height 98.6 DegF (06/17/14 1:32 PM) 98.3 DegF (06/17/14 10:03 AM) 97.6 DegF (06/17/14 6:30 AM) Temperature Oral [96.4-99.1 DegF] 126 mmHg (06/17/14 1:32 PM) 143 mmHg *HI* (06/17/14 10:03 AM) 135 mmHg (06/17/14 6:30 AM) Systolic Blood Pressure [90-140 mmHg] 78 mmHg (06/17/14 1:32 PM) 103 mmHg *HI* (06/17/14 10:03 AM) 91 mmHg *HI* (06/17/14 6:30 AM) Diastolic Blood Pressure [60-90 mmHg] 20 BRMIN (06/17/14 1:32 PM) 20 BRMIN (06/17/14 10:03 AM) 16 BRMIN (06/17/14 6:30 AM) Respiratory Rate [14-20 BRMIN] 129 bpm *HI* (06/17/14 1:32 PM) 109 bpm *HI* (06/17/14 10:03 AM) 103 bpm *HI* (06/17/14 6:30 AM) Peripheral Pulse Rate [60-100 bpm] 64.091 kg (05/26/14 12:01 AM) Weight 23.51 m2 (05/26/14 12:01 AM) Body Mass Index Problem List Condition Effective Dates Status Health Status Informant Gestational Active hypertension(Confirm ed) Group B Active streptococcus Pre-eclampsia(Confir Active med) (Confirmed) 05/22/14 - 06/13/14 Resolved Allergies, Adverse Reactions, Alerts Substance Reaction Severity Status NKDA Active Medications acetaminophen 1,000 mg, 100 mL, Route: IVPB, Drug form: INJ, Q6H, Dosing Weight 64.091, kg, Pr iority: NOW, Start date: 06/13/14 22:05:00, Duration: 24 hr, Stop date: 06/14/14 18:00:00 Notes: Infuse over 15 minutes Do not exceed 4gm/day of acetaminophen Start Date: 06/13/14 Stop Date: 06/14/14 Status: Pending Complete acetaminophen 650 mg, 20.3 mL, Route: PO, Drug form: LIQ, Q4H, Dosing Weight 64.091, kg, PRN O ther -See Comment, Start date: 06/13/14 22:08:00, Duration: 30 day, Stop date: 09/12/13 22:07:00 Notes: Max mvcbprtfmlzas=0473kt/day (4 gm/day). (Same as: Tylenol) Start Date: 06/13/14 Stop Date: 06/17/14 Status: Discontinued acetaminophen-hydrocodone 325 mg-10 mg oral tablet 1 tab, Route: PO, Drug Form: TAB, Dosing Weight 64.091, kg, Q4H, PRN Pain Score 7-10, Start date: 06/13/14 22:08:00, Duration: 30 day, Stop date: 07/13/14 22:07 :00 Notes: Do not exceed 4gm/day of acetaminophen. (Same as: Ruso 325/10) Start Date: 06/13/14 Stop Date: 06/17/14 Status: Discontinued acetaminophen-hydrocodone 325 mg-10 mg oral tablet 1 tab, Route: PO, Drug Form: TAB, Dosing Weight 64.091, kg, Q4H, PRN Pain Score 7-10, Start date: 06/13/14 22:00:00, Duration: 30 day, Stop date: 07/13/14 21:59 :00 Notes: Do not exceed 4gm/day of acetaminophen. (Same as: Ruso 325/10) Start Date: 06/13/14 Stop Date: 06/14/14 Status: Discontinued acetaminophen-hydrocodone 325 mg-5 mg oral tablet 1 tab, PO, Q4H, as needed for pain, # 30 tab, 0 Refill(s) Start Date: 06/17/14 Stop Date: 06/17/14 Status: Discontinued acetaminophen-hydrocodone 325 mg-5 mg oral tablet 1 tab, Route: PO, Drug Form: TAB, Dosing Weight 64.091, kg, Q4H, PRN Pain Score 4-6, Start date: 06/13/14 22:08:00, Duration: 30 day, Stop date: 07/13/14 22:07: 00 Notes: (Same as: Ruso 325/5) Do not exceed 4gm/day of acetaminophen. Start Date: 06/13/14 Stop Date: 06/17/14 Status: Discontinued acetaminophen-hydrocodone 325 mg-5 mg oral tablet 1 tab, Route: PO, Drug Form: TAB, Dosing Weight 64.091, kg, Q4H, PRN Pain Score 4-6, Start date: 06/13/14 22:00:00, Duration: 30 day, Stop date: 07/13/14 21:59: 00 Notes: (Same as: Ruso 325/5) Do not exceed 4gm/day of acetaminophen. Start Date: 06/13/14 Stop Date: 06/14/14 Status: Discontinued acetaminophen/butalbital/caffeine 325 mg-50 mg-40 mg oral tablet 1 tab, Route: PO, Drug Form: TAB, Dosing Weight 64.091, kg, Q6H, PRN Headache 1- 5, Start date: 06/03/14 1:06:00, Stop date: 07/03/14 1:05:00 Notes: (srpyphqwulyuc-rutovmaznx-nmecpxlm 325-50-40mg) Do not exceed 4 gm/day o f acetaminophen. (Same as: Esgic, Fioricet) Start Date: 06/03/14 Stop Date: 06/17/14 Status: Discontinued betamethasone 12 mg, 2 mL, Route: IM, Drug form: INJ, Q24H, Dosing Weight 64.091, kg, Start da te: 05/26/14 2:00:00, Duration: 2 doses or times, Stop date: 05/27/14 2:00:00 Notes: (betamethasone acetate-sodium phosphate 6 mg/ml INJ) (Same As: Celestone Soluspan) Start Date: 05/26/14 Stop Date: 05/27/14 Status: Completed bisacodyl 15 mg, 3 tab, Route: PO, Drug form: ECTAB, Daily, Dosing Weight 64.091, kg, PRN Other -See Comment, Start date: 06/13/14 22:08:00, Duration: 30 day, Stop date: 07/13/14 22:07:00 Notes: (Same As: Dulcolax, Correctol) (Do Not Crush) "Do Not Crush" Start Date: 06/13/14 Stop Date: 06/17/14 Status: Discontinued bisacodyl 10 mg, 1 supp, Route: ID, Drug form: SUPP, PRN, Dosing Weight 64.091, kg, PRN Ot her -See Comment, Start date: 06/13/14 22:08:00, Duration: 30 day, Stop date: 21:07:00 Notes: (Same As: Dulcolax, Bisco-Lax) Start Date: 06/13/14 Stop Date: 06/17/14 Status: Discontinued calcium gluconate 1 gm, 10 mL, Route: IVPB, Drug form: INJ, ONCALL, Dosing Weight 64.091, kg, (Max imum Dose=3 gm); For Hypermagnesemia, Start date: 06/13/14 15:00:00, Duration: 3 0 day, Stop date: 07/13/14 13:59:00 Start Date: 06/13/14 Stop Date: 06/17/14 Status: Discontinued calcium gluconate + Sodium Chloride 0.9% IV 50 mL 1 gm, 10 mL, Route: IVPB, ONCALL, Dosing Weight 64.091, kg, (Maximum Dose=3 gm); For Hypermagnesemia, Start date: 05/26/14 2:00:00, Duration: 30 day, Stop date: 06/25/14 1:59:00 Start Date: 05/26/14 Stop Date: 05/27/14 Status: Discontinued citric acid-sodium citrate 30 ml, Route: PO, Drug Form: SOLN, Dosing Weight 64.091, kg, ONCE, Start date: 0 06/09/14 20:09:00, Stop date: 06/09/14 20:09:00 Notes: (Same As: Bicitra, Cytra-2) Sodium citrate-citric acid (500-334 mg/5 mL): 1 mL contains sodium 1 mEq/mL and bicarbonate 1 mEq/mL Start Date: 06/09/14 Stop Date: 06/09/14 Status: Completed citric acid-sodium citrate 30 ml, Route: PO, Drug Form: SOLN, Dosing Weight 64.091, kg, ONCE, Start date: 0 06/08/14 21:26:00, Stop date: 06/08/14 21:26:00 Notes: (Same As: Bicitra, Cytra-2) Sodium citrate-citric acid (500-334 mg/5 mL): 1 mL contains sodium 1 mEq/mL and bicarbonate 1 mEq/mL Start Date: 06/08/14 Stop Date: 06/08/14 Status: Completed Colace 100 mg oral capsule 100 mg=1 cap, PO, BID, Constipation, # 30 cap, 0 Refill(s) Start Date: 06/17/14 Status: Ordered Colace 100 mg oral capsule 100 mg, 1 cap, Route: PO, Drug form: CAP, BID, Dosing Weight 64.091, kg, PRN Con stipation, Start date: 06/01/14 8:01:00, Duration: 30 day, Stop date: 07/01/14 8 :00:00 Notes: (Same as: Colace) (Do Not Crush) Start Date: 06/01/14 Stop Date: 06/17/14 Status: Discontinued ferrous sulfate 325 mg, 1 tab, Route: PO, Drug form: ECTAB, Daily, Dosing Weight 64.091, kg, Sta rt date: 06/01/14 9:00:00, Duration: 30 day, Stop date: 06/30/14 9:00:00 Notes: Give with food. "Do Not Crush" Start Date: 06/01/14 Stop Date: 06/17/14 Status: Discontinued hydrALAZINE 10 mg, 0.5 mL, Route: IV, Drug form: INJ, ONCE, Dosing Weight 64.091, kg, Start date: 06/13/14 13:55:00, Stop date: 06/13/14 13:55:00 Notes: (Same as: Apresoline)Push over 5 minutes Start Date: 06/13/14 Stop Date: 06/13/14 Status: Completed hydrALAZINE 10 mg, Route: IV, ONCE, Dosing Weight 64.091, kg, Priority: STAT, Start date: 15:19:00, Stop date: 06/13/14 15:19:00 Start Date: 06/13/14 Stop Date: 06/13/14 Status: Completed ibuprofen 600 mg, 1 tab, Route: PO, Drug form: TAB, Q6H, Dosing Weight 64.091, kg, PRN Benjamin n Score 1-3, Start date: 06/13/14 22:05:00, Stop date: 07/13/14 18:00:00 Notes: (Same as: Motrin)"Do Not Crush" Take with food. Start Date: 06/13/14 Stop Date: 06/14/14 Status: Discontinued ibuprofen 800 mg, 1 tab, Route: PO, Drug form: TAB, Q8H, Dosing Weight 64.091, kg, PRN Benjamin n Score 6-10, Start date: 06/13/14 22:08:00, Duration: 30 day, Stop date: 22:07:00 Notes: (Same as: Motrin)"Do Not Crush" Take with food. Start Date: 06/13/14 Stop Date: 06/17/14 Status: Discontinued ibuprofen 600 mg, 1 tab, Route: PO, Drug form: TAB, Q6H, Dosing Weight 64.091, kg, PRN Benjamin n Score 1-5, Start date: 06/13/14 22:08:00, Duration: 30 day, Stop date: 4 22:07:00 Notes: (Same as: Motrin)"Do Not Crush" Take with food. Start Date: 06/13/14 Stop Date: 06/17/14 Status: Discontinued ibuprofen 800 mg, 1 tab, Route: PO, Drug form: TAB, Q8H, Dosing Weight 64.091, kg, PRN Benjamin n Score 6-10, Start date: 06/13/14 22:00:00, Duration: 30 day, Stop date: 21:59:00 Notes: (Same as: Motrin)"Do Not Crush" Take with food. Start Date: 06/13/14 Stop Date: 06/14/14 Status: Discontinued ibuprofen 600 mg, 1 tab, Route: PO, Drug form: TAB, Q6H, Dosing Weight 64.091, kg, PRN Benjamin n Score 1-5, Start date: 06/13/14 22:00:00, Duration: 30 day, Stop date: 4 21:59:00 Notes: (Same as: Motrin)"Do Not Crush" Take with food. Start Date: 06/13/14 Stop Date: 06/14/14 Status: Discontinued ibuprofen 800 mg oral tablet 800 mg=1 tab, PO, Q8H, Pain Score 6-10, # 45 tab, 0 Refill(s) Start Date: 06/17/14 Status: Ordered influenza virus vaccine, inactivated 0.5 ml, Route: IM, Drug Form: SUSP, Daily, Start date: 05/30/14 9:00:00, Duratio n: 1 doses or times, Stop date: 05/30/14 9:00:00 Notes: (Same as: Fluzone Quadrivalent) Start Date: 05/30/14 Stop Date: 05/30/14 Status: Pending Complete ketorolac 30 mg, 1 mL, Route: IVP, Drug form: INJ, Q6H, Dosing Weight 64.091, kg, PRN Pain Score 4-6, Start date: 06/13/14 22:05:00, Duration: 24 hr, Stop date: 06/14/14 22:04:00 Notes: (Same as:Toradol) IV bolus must be given >15 seconds. Give IM administration slowly and deeply into the muscle. Not for use > 4 days Start Date: 06/13/14 Stop Date: 06/14/14 Status: Completed labetalol 40 mg, 8 mL, Route: IV, Drug form: INJ, ONCE, Dosing Weight 64.091, kg, Start da te: 05/26/14 1:10:00, Stop date: 05/26/14 1:10:00 Start Date: 05/26/14 Stop Date: 05/26/14 Status: Completed labetalol 20 mg, Route: IVP, Drug form: INJ, ONCE, Dosing Weight 64.091, kg, Start date: 1 18:35:00, Stop date: 06/12/14 18:35:00 Start Date: 06/12/14 Stop Date: 06/12/14 Status: Completed labetalol 20 mg, Route: IVP, Drug form: INJ, ONCE, Dosing Weight 64.091, kg, Start date: 0 05/26/14 0:42:00, Stop date: 05/26/14 0:42:00 Start Date: 05/26/14 Stop Date: 05/26/14 Status: Completed labetalol 40 mg, 8 mL, Route: IV, Drug form: INJ, ONCE, Dosing Weight 64.091, kg, Start da te: 06/12/14 19:41:00, Stop date: 06/12/14 19:41:00 Start Date: 06/12/14 Stop Date: 06/12/14 Status: Completed Lactated Ringers (Bolus) IV 300 mL, 300 ml/hr, Infuse Over: 1 hr, Route: IV, 300, Drug form: INJ, ONCE, Prio rity: STAT, Dosing Weight 64.091 kg, Start date: 06/14/14 13:37:00, Duration: 1 doses or times, Stop date: 06/14/14 13:37:00 Start Date: 06/14/14 Stop Date: 06/14/14 Status: Ordered Lactated Ringers IV 1,000 mL 1,000 mL, Rate: 50 ml/hr, Infuse over: 20 hr, Route: IV, Dosing Weight 64.091 kg , Total Volume: 1,000, Start date: 05/26/14 3:32:00, Duration: 30 day, Stop date : 06/25/14 3:31:00 Start Date: 05/26/14 Stop Date: 06/14/14 Status: Discontinued Lactated Ringers IV 1,000 mL 1,000 mL, Rate: 100 ml/hr, Infuse over: 10 hr, Route: IV, Dosing Weight 64.091 k g, Total Volume: 1,000, Start date: 06/13/14 22:08:00, Duration: 30 day, Stop da te: 07/13/14 22:07:00 Start Date: 06/13/14 Stop Date: 06/17/14 Status: Discontinued lanolin topical cream 1 appl, Route: TOP, PRN, Drug form: OINT, PRN Other -See Comment, Start date: 22:08:00, Duration: 30 day, Stop date: 07/13/14 21:07:00 Notes: (Same as:Lanolin) Start Date: 06/13/14 Stop Date: 06/17/14 Status: Discontinued M-M-R II 0.5 mL, Route: SUB-Q, Drug Form: PDR/INJ, Dosing Weight 64.091, kg, ONCALL, Star t date: 06/13/14 23:00:00, Duration: 1 doses or times Notes: (Same as: M-M-R II) (njxvijl-hvrvs-denzjkf virus vaccine 0.5 ml INJ VL) GIVE PRIOR TO DISCHARGE Start Date: 06/13/14 Stop Date: 06/17/14 Status: Discontinued magnesium sulfate 6 gm, 50 mL, Route: IVPB, Drug form: INJ, ONCE, Dosing Weight 64.091, kg, Loadin g dose; Dilute in 100 ml; Infuse over 30 minutes @ 200 ml/hr (STOP: Above a 6 gm loading dose, call Pharmacist or Physician), Start date: 05/26/14 1:39:00, Du ration: 1 d... Notes: Ewyx=819 mg/ml. Total volume=50 ml. Bolus dose. Run over 30 minutes. Start Date: 05/26/14 Stop Date: 05/26/14 Status: Completed magnesium sulfate 6 gm, 50 mL, Route: IVPB, Drug form: INJ, ONCE, Dosing Weight 64.091, kg, Loadin g dose; Dilute in 100 ml; Infuse over 30 minutes @ 200 ml/hr (STOP: Above a 6 gm loading dose, call Pharmacist or Physician), Start date: 06/13/14 14:25:00, D uration: 1... Notes: Fwns=732 mg/ml. Total volume=50 ml. Bolus dose. Run over 30 minutes. Start Date: 06/13/14 Stop Date: 06/13/14 Status: Completed magnesium sulfate 20 gm/500 ml solution 20 gm 500 mL, Rate: 50 ml/hr, Infuse over: 10 hr, Route: IV, Dosing Weight 64.091 kg, Total Volume: 500, Start date: 05/26/14 1:39:00, Duration: 30 day, Stop date: 1:38:00 Notes: (Same as: MgSO4) Start Date: 05/26/14 Stop Date: 05/27/14 Status: Discontinued magnesium sulfate 20 gm/500 ml solution 20 gm 500 mL, Rate: 50 ml/hr, Infuse over: 10 hr, Route: IV, Dosing Weight 64.091 kg, Total Volume: 500, Start date: 06/13/14 14:25:00, Stop date: 06/14/14 22:00:00 Notes: (Same as: MgSO4) Start Date: 06/13/14 Stop Date: 06/14/14 Status: Completed medroxyPROGESTERone 150 mg, 1 mL, Route: IM, Drug form: INJ, ONCE, Dosing Weight 64.091, kg, Start d ate: 06/17/14 11:34:00, Duration: 1 doses or times, Stop date: 06/17/14 11:34:00 Notes: (Same as: Depo-Provera)This is NOT Depo-SubQ Provera 104 For IM use only . Start Date: 06/17/14 Stop Date: 06/17/14 Status: Completed multivitamin, 1 tab, Route: PO, Drug Form: TAB, Dosing Weight 64.091, kg, Daily, Start date: 0 05/26/14 9:00:00, Duration: 30 day, Stop date: 06/24/14 9:00:00 Start Date: 05/26/14 Stop Date: 06/14/14 Status: Discontinued naloxone 0.4 mg, 1 mL, Route: IVP, Drug form: INJ, ONCALL, Dosing Weight 64.091, kg, Star t date: 06/13/14 23:00:00, Duration: 24 hr, Stop date: 06/14/14 22:59:00 Notes: Same as Narcan Start Date: 06/13/14 Stop Date: 06/17/14 Status: Discontinued NIFEdipine 90 mg oral tablet, extended release 90 mg=1 tab, PO, Daily, # 30 tab, 2 Refill(s) Start Date: 06/17/14 Status: Ordered NS 500ml + Pitocin 30 units (Titrate) IV 30 unit 30 unit, 500 mL, Rate: 42 ml/hr, Infuse over: 11.9 hr, Dosing Weight 64.091, kg, Route: IV, Total Volume: 500 mL, Start date: 06/13/14 22:08:00, Duration: 1 dos es or times, Stop date: 06/14/14 10:01:00, Replace Every: 11.9 hr Notes: (Same as: OXYTOCIN-D5LR) Start Date: 06/13/14 Stop Date: 06/14/14 Status: Completed ondansetron 4 mg, 2 mL, Route: IVP, Drug form: INJ, Q6H, Dosing Weight 64.091, kg, PRN Nause a & Vomiting, Start date: 06/13/14 22:05:00, Duration: 24 hr, Stop date: 06/14/14 22:04:00 Notes: (Same as: Violetta) Start Date: 06/13/14 Stop Date: 06/14/14 Status: Completed oxytocin 30 units in D5LR 500mL (Titrate) IV 30 unit 30 unit, 500 mL, Rate: Titrate, Dosing Weight 64.091, kg, Route: IV, Total Volum e: 500 mL, Start date: 06/13/14 15:21:00, Duration: 2 day, Stop date: 06/15/14 1 5:20:00, Replace Every: 24 hr Notes: (Same as: OXYTOCIN-D5LR) Start Date: 06/13/14 Stop Date: 06/14/14 Status: Discontinued penicillin G potassium 2,500,000 unit, 50 mL, Route: IVPB, Drug form: INJ, ABXQ4H, Dosing Weight 64.091 , kg, Start date: 06/13/14 19:00:00 Start Date: 06/13/14 Stop Date: 06/14/14 Status: Discontinued penicillin G potassium 5,000,000 units injection 5,000,000 unit, Route: IVPB, Drug form: PDR/INJ, ONCALL, Dosing Weight 64.091, k g, Start date: 06/13/14 15:00:00, Duration: 1 doses or times Notes: (Same as: Pfizeraurora) Start Date: 06/13/14 Stop Date: 06/14/14 Status: Discontinued Pepcid 20 mg oral tablet 20 mg, 1 tab, Route: PO, Drug form: TAB, Daily, Dosing Weight 64.091, kg, Start date: 06/01/14 9:00:00, Duration: 30 day, Stop date: 06/30/14 9:00:00 Notes: (Same as: Pepcid) Start Date: 06/01/14 Stop Date: 06/17/14 Status: Discontinued Multivitamins oral tablet 1 tab, Route: PO, Drug Form: TAB, Dosing Weight 64.091, kg, Daily, Start date: 1 9:00:00, Duration: 30 day, Stop date: 07/13/14 9:00:00 Start Date: 06/14/14 Stop Date: 06/17/14 Status: Discontinued Procardia 30 mg, 1 tab, Route: PO, Drug form: ERTAB, ONCE, Dosing Weight 64.091, kg, Start date: 06/06/14 19:56:00, Stop date: 06/06/14 19:56:00 Notes: (Same as: Adalat CC, Procardia XL) Give on empty stomach. Take 1 hour be fore or 2 hours after meal; "Avoid grapefruit and grapefruit juice". Do not cru sh Start Date: 06/06/14 Stop Date: 06/06/14 Status: Completed Procardia XL 90 mg, 1 tab, Route: PO, Drug form: ERTAB, Daily, Dosing Weight 64.091, kg, Star t date: 06/14/14 9:00:00, Duration: 30 day, Stop date: 07/13/14 9:00:00 Notes: (Same as:Adalat CC, Procardia XL) Give on empty stomach. Take 1 hour bef ore or 2 hours after meal; "Avoid grapefruit and grapefruit juice". Do not valentín h Start Date: 06/14/14 Stop Date: 06/14/14 Status: Canceled Procardia XL 60 mg, 1 tab, Route: PO, Drug form: ERTAB, Daily, Dosing Weight 64.091, kg, Star t date: 06/14/14 9:00:00, Duration: 30 day, Stop date: 07/13/14 9:00:00 Notes: (Same as: Adalat CC, Procardia XL) Give on empty stomach. Take 1 hour be fore or 2 hours after meal; "Avoid grapefruit and grapefruit juice". Do not cru sh Start Date: 06/14/14 Stop Date: 06/15/14 Status: Discontinued Procardia XL 90 mg, 1 tab, Route: PO, Drug form: ERTAB, Daily, Dosing Weight 64.091, kg, Star t date: 06/16/14 9:00:00, Duration: 30 day, Stop date: 07/15/14 9:00:00 Notes: (Same as:Adalat CC, Procardia XL) Give on empty stomach. Take 1 hour bef ore or 2 hours after meal; "Avoid grapefruit and grapefruit juice". Do not valentín h Start Date: 06/16/14 Stop Date: 06/17/14 Status: Discontinued Procardia XL 30 mg, 1 tab, Route: PO, Drug form: ERTAB, ONCE, Dosing Weight 64.091, kg, Prior ity: STAT, Start date: 06/13/14 10:50:00, Stop date: 06/13/14 10:50:00 Notes: (Same as: Adalat CC, Procardia XL) Give on empty stomach. Take 1 hour be fore or 2 hours after meal; "Avoid grapefruit and grapefruit juice". Do not cru sh Start Date: 06/13/14 Stop Date: 06/13/14 Status: Completed Procardia XL 60 mg, 1 tab, Route: PO, Drug form: ERTAB, Daily, Dosing Weight 64.091, kg, Star t date: 06/07/14 9:00:00, Duration: 30 day, Stop date: 07/06/14 9:00:00 Notes: (Same as: Adalat CC, Procardia XL) Give on empty stomach. Take 1 hour be fore or 2 hours after meal; "Avoid grapefruit and grapefruit juice". Do not cru sh Start Date: 06/07/14 Stop Date: 06/13/14 Status: Discontinued Procardia XL 30 mg, 1 tab, Route: PO, Drug form: ERTAB, ONCE, Dosing Weight 64.091, kg, Start date: 06/15/14 19:57:00, Stop date: 06/15/14 19:57:00 Notes: (Same as: Adalat CC, Procardia XL) Give on empty stomach. Take 1 hour be fore or 2 hours after meal; "Avoid grapefruit and grapefruit juice". Do not cru sh Start Date: 06/15/14 Stop Date: 06/15/14 Status: Completed Procardia XL 30 mg, 1 tab, Route: PO, Drug form: ERTAB, Daily, Dosing Weight 64.091, kg, Star t date: 05/26/14 7:00:00, Duration: 30 day, Stop date: 06/24/14 9:00:00 Notes: (Same as: Adalat CC, Procardia XL) Give on empty stomach. Take 1 hour be fore or 2 hours after meal; "Avoid grapefruit and grapefruit juice". Do not cru sh Start Date: 05/26/14 Stop Date: 06/07/14 Status: Discontinued Saline Flush 0.9% 10 ml, Route: IVP, Drug Form: INJ, Dosing Weight 64.091, kg, Q12H, Start date: 9:00:00, Duration: 30 day, Stop date: 07/13/14 21:00:00 Notes: (Same as: BD Posiflush) Start Date: 06/14/14 Stop Date: 06/17/14 Status: Discontinued Saline Flush 0.9% 10 ml, Route: IVP, Drug Form: INJ, Dosing Weight 64.091, kg, PRN, PRN Line Flush , Start date: 06/13/14 22:08:00, Duration: 30 day, Stop date: 07/13/14 21:07:00 Notes: (Same as: BD Posiflush) Start Date: 06/13/14 Stop Date: 06/17/14 Status: Discontinued simethicone 160 mg, 2 tab, Route: PO, Drug form: CHEWTAB, Q8H, Dosing Weight 64.091, kg, PRN Gas, Start date: 06/13/14 22:08:00, Duration: 30 day, Stop date: 07/13/14 22:07 :00 Notes: (Same as: Mylicon) Start Date: 06/13/14 Stop Date: 06/17/14 Status: Discontinued tramadol 50 mg oral tablet 1-2 tab, PO, Q6H, Pain, # 30 tab, 0 Refill(s) Start Date: 06/17/14 Stop Date: 06/27/14 Status: Ordered Tylenol 650 mg, 2 tab, Route: PO, Drug form: TAB, Q6H, Dosing Weight 64.091, kg, PRN Benjamin n Score 1-3, Start date: 05/26/14 11:01:00, Duration: 30 day, Stop date: 4 11:00:00 Notes: Do not exceed 4 gm/day. (Same as: Tylenol) Start Date: 05/26/14 Stop Date: 06/17/14 Status: Discontinued Zofran 4 mg, 1 tab, Route: PO, Drug form: TAB, Q8H, Dosing Weight 64.091, kg, PRN Nause a, Start date: 06/06/14 18:35:00, Duration: 30 day, Stop date: 07/06/14 18:34:00 Notes: (Same as: Zofran) Start Date: 06/06/14 Stop Date: 06/17/14 Status: Discontinued zolpidem 5 mg, 1 tab, Route: PO, Drug form: TAB, Bedtime, Dosing Weight 64.091, kg, PRN I nsomnia, Start date: 06/13/14 22:08:00, Duration: 30 day, Stop date: 07/13/14 22 :07:00 Notes: (Same As: Ambien) Start Date: 06/13/14 Stop Date: 06/17/14 Status: Discontinued Results BLOOD BANK RESULTS 1 2 3 Most recent to oldest [Reference Range]: A POS *Unknown* (06/12/14 7:00 AM) A POS *Unknown* (06/09/14 4:04 AM) A POS *Unknown* (06/06/14 6:45 PM) ABO/Rh Negative (06/12/14 7:00 AM) Negative (06/09/14 4:04 AM) Negative (06/06/14 6:45 PM) Antibody Scrn ELECTROLYTES 1 2 3 Most recent to oldest [Reference Range]: 134 mEq/L *LOW* (06/14/14 9:53 AM) 137 mEq/L (06/13/14 10:59 PM) 140 mEq/L (06/11/14 10:58 AM) Sodium Lvl [135-145 mEq/L] 4.4 mEq/L (06/14/14 9:53 AM) 4.9 mEq/L (06/13/14 10:59 PM) 4.4 mEq/L (06/11/14 10:58 AM) Potassium Lvl [3.5-5.1 mEq/L] 100 mEq/L (06/14/14 9:53 AM) 104 mEq/L (06/13/14 10:59 PM) 108 mEq/L (06/11/14 10:58 AM) Chloride Lvl [95-109 mEq/L] 25 mEq/L (06/14/14 9:53 AM) 23 mEq/L *LOW* (06/13/14 10:59 PM) 24 mEq/L (06/11/14 10:58 AM) CO2 [24-32 mEq/L] 13.4 mEq/L (06/14/14 9:53 AM) 14.9 mEq/L (06/13/14 10:59 PM) 12.4 mEq/L (06/11/14 10:58 AM) AGAP [10.0-20.0 mEq/L] CHEM PANEL 1 2 3 Most recent to oldest [Reference Range]: 0.6 mg/dL (06/16/14 2:15 AM) 1.0 mg/dL (06/14/14 9:53 AM) 1.0 mg/dL (06/14/14 9:53 AM) Creatinine Lvl [0.5-1.4 mg/dL] 151 mL/min/1.73m2 1 *NA* (06/16/14 2:15 AM) 93 mL/min/1.73m2 2 *NA* (06/14/14 9:53 AM) 93 mL/min/1.73m2 3 *NA* (06/14/14 9:53 AM) eGFR 9 mg/dL (06/14/14 9:53 AM) 10 mg/dL (06/13/14 10:59 PM) 8 mg/dL (06/11/14 10:58 AM) BUN [7-22 mg/dL] 10 (06/11/14 10:58 AM) 11 (06/10/14 7:36 AM) 15 (06/06/14 6:05 AM) B/C Ratio [6-25] 98 mg/dL 4 (06/14/14 9:53 AM) 105 mg/dL 5 *HI* (06/13/14 10:59 PM) 84 mg/dL 6 (06/11/14 10:58 AM) Glucose Lvl [70-99 mg/dL] 6.1 mg/dL (06/14/14 9:53 AM) 5.9 mg/dL (06/13/14 4:02 PM) 5.5 mg/dL (06/12/14 7:00 AM) Uric Acid [2.5-7.0 mg/dL] 4.3 g/dL *LOW* (06/11/14 10:58 AM) 4.7 g/dL *LOW* (06/10/14 7:36 AM) 4.4 g/dL *LOW* (06/06/14 6:05 AM) Total Protein [6.4-8.4 g/dL] 1.3 g/dL *LOW* (06/11/14 10:58 AM) 1.5 g/dL *LOW* (06/10/14 7:36 AM) 1.4 g/dL *LOW* (06/06/14 6:05 AM) Albumin Lvl [3.5-5.0 g/dL] 3.0 g/dL (06/11/14 10:58 AM) 3.2 g/dL (06/10/14 7:36 AM) 3.0 g/dL (06/06/14 6:05 AM) Globulin [2.0-4.0 g/dL] 0.4 *LOW* (06/11/14 10:58 AM) 0.5 *LOW* (06/10/14 7:36 AM) 0.5 *LOW* (06/06/14 6:05 AM) A/G Ratio [0.7-1.6] 8.1 mg/dL *LOW* (06/14/14 9:53 AM) 8.7 mg/dL (06/13/14 10:59 PM) 8.4 mg/dL *LOW* (06/11/14 10:58 AM) Calcium Lvl [8.5-10.5 mg/dL] 23 unit/L (06/14/14 9:53 AM) 37 unit/L (06/13/14 4:02 PM) 19 unit/L (06/12/14 7:00 AM) ALT [0-65 unit/L] 32 unit/L (06/14/14 9:53 AM) 42 unit/L *HI* (06/13/14 4:02 PM) 24 unit/L (06/12/14 7:00 AM) AST [0-37 unit/L] 103 unit/L (06/11/14 10:58 AM) 114 unit/L (06/10/14 7:36 AM) 86 unit/L (06/06/14 6:05 AM) Alk Phos [39-136 unit/L] 336 unit/L *HI* (06/14/14 9:53 AM) 320 unit/L *HI* (06/13/14 4:02 PM) 211 unit/L *HI* (06/12/14 7:00 AM) LDH [98-192 unit/L] 0.1 mg/dL *LOW* (06/11/14 10:58 AM) <0.1 mg/dL *LOW* (06/10/14 7:36 AM) 0.3 mg/dL (06/06/14 6:05 AM) Bili Total [0.2-1.3 mg/dL] 1Result Comment: The eGFR is calculated using the [...] from the [employer] ( NK[employer]) which additionally recommends that when the eGFR is used in patients with extremes of body mass index for purposes of drug dosing, the eGFR should be mul tiplied by the estimated BMI. 2Result Comment: The eGFR is calculated using the [...] from the National Kidney Disease Education Program ( NKDEP) which additionally recommends that when the eGFR is used in patients with extremes of body mass index for purposes of drug dosing, the eGFR should be mul tiplied by the estimated BMI. 3Result Comment: The eGFR is calculated using the [...] from the National Kidney Disease Education Program ( NKDEP) which additionally recommends that when the eGFR is used in patients with extremes of body mass index for purposes of drug dosing, the eGFR should be mul tiplied by the estimated BMI. 4Interpretive Data: Adult reference range values reflect the clinical guidelines of the [place] [employer]. 5Interpretive Data: Adult reference range values reflect the clinical guidelines of the [place] [employer]. 6Interpretive Data: Adult reference range values reflect the clinical guidelines of the [place] [employer]. GLUCOSE TOLR 1 2 3 Most recent to oldest [Reference Range]: 122.0 mg/dL (06/03/14 6:00 PM) 106.0 mg/dL (06/03/14 4:30 PM) Glu Challenge [<=140.0 mg/dL] URINE CHEM 1 2 3 Most recent to oldest [Reference Range]: 178.1 mg/dL 7 *NA* (05/26/14 12:50 AM) U Creatinine 1350.5 mg/dL 8 *NA* (05/26/14 12:50 AM) U Protein 7.6 *NA* (05/26/14 12:50 AM) U Prot/Creat 7Interpretive Data: No established reference ranges. 8Interpretive Data: No established reference ranges. IMMUNOLOGY 1 2 3 Most recent to oldest [Reference Range]: Non Reactive *NA* (05/26/14 12:50 AM) Treponemal Scr [Non Reactive] Negative *NA* (05/26/14 12:50 AM) Hep Bs Ag [Negative] HEMATOLOGY 1 2 3 Most recent to oldest [Reference Range]: 11.5 K/CMM *HI* (06/16/14 2:15 AM) 10.6 K/CMM *HI* (06/14/14 9:53 AM) 7.2 K/CMM (06/13/14 4:02 PM) WBC [3.7-10.4 K/CMM] 3.78 M/CMM *LOW* (06/16/14 2:15 AM) 4.26 M/CMM (06/14/14 9:53 AM) 5.35 M/CMM (06/13/14 4:02 PM) RBC [4.20-5.40 M/CMM] 11.2 g/dL *LOW* (06/16/14 2:15 AM) 12.4 g/dL (06/14/14 9:53 AM) 13.7 g/dL (06/13/14 10:59 PM) Hgb [12.0-16.0 g/dL] 32.9 % *LOW* (06/16/14 2:15 AM) 37.1 % (06/14/14 9:53 AM) 40.5 % (06/13/14 10:59 PM) Hct [36.0-48.0 %] 87.0 fL (06/16/14 2:15 AM) 86.9 fL (06/14/14 9:53 AM) 86.1 fL (06/13/14 4:02 PM) MCV [80.0-98.0 fL] 29.5 pg (06/16/14 2:15 AM) 29.0 pg (06/14/14 9:53 AM) 30.1 pg (06/13/14 4:02 PM) MCH [27.0-31.0 pg] 33.9 g/dL (06/16/14 2:15 AM) 33.4 g/dL (06/14/14 9:53 AM) 34.9 g/dL (06/13/14 4:02 PM) MCHC [32.0-36.0 g/dL] 13.6 % (06/16/14 2:15 AM) 13.5 % (06/14/14 9:53 AM) 13.5 % (06/13/14 4:02 PM) RDW [11.5-14.5 %] 275 K/CMM (06/16/14 2:15 AM) 340 K/CMM (06/14/14 9:53 AM) 362 K/CMM (06/13/14 4:02 PM) Platelet [133-450 K/CMM] 10.4 fL (06/16/14 2:15 AM) 11.2 fL *HI* (06/14/14 9:53 AM) 11.4 fL *HI* (06/13/14 4:02 PM) MPV [7.4-10.4 fL] 59.0 % (06/16/14 2:15 AM) 63.5 % (06/14/14 9:53 AM) 50.3 % (06/13/14 4:02 PM) Segs [45.0-75.0 %] 32.4 % (06/16/14 2:15 AM) 28.4 % (06/14/14 9:53 AM) 41.8 % *HI* (06/13/14 4:02 PM) Lymphocytes [20.0-40.0 %] 7.3 % (06/16/14 2:15 AM) 7.4 % (06/14/14 9:53 AM) 6.8 % (06/13/14 4:02 PM) Monocytes [2.0-12.0 %] 0.8 % (06/16/14 2:15 AM) 0.1 % (06/14/14 9:53 AM) 0.4 % (06/13/14 4:02 PM) Eosinophils [0.0-4.0 %] 0.5 % (06/16/14 2:15 AM) 0.6 % (06/14/14 9:53 AM) 0.7 % (06/13/14 4:02 PM) Basophils [0.0-1.0 %] 6.8 K/CMM (06/16/14 2:15 AM) 6.7 K/CMM (06/14/14 9:53 AM) 3.6 K/CMM (06/13/14 4:02 PM) Segs-Bands # [1.5-8.1 K/CMM] 3.7 K/CMM (06/16/14 2:15 AM) 3.0 K/CMM (06/14/14 9:53 AM) 3.0 K/CMM (06/13/14 4:02 PM) Lymphocytes # [1.0-5.5 K/CMM] 0.8 K/CMM (06/16/14 2:15 AM) 0.8 K/CMM (06/14/14 9:53 AM) 0.5 K/CMM (06/13/14 4:02 PM) Monocytes # [0.0-0.8 K/CMM] 0.1 K/CMM (06/16/14 2:15 AM) 0.1 K/CMM (06/12/14 7:00 AM) 0.1 K/CMM (06/02/14 3:34 AM) Eosinophils # [0.0-0.5 K/CMM] 0.1 K/CMM (06/16/14 2:15 AM) 0.1 K/CMM (06/14/14 9:53 AM) 0.1 K/CMM (06/12/14 7:00 AM) Basophils # [0.0-0.2 K/CMM] Normal (06/13/14 4:02 PM) Normal (05/27/14 9:32 AM) RBC Morph Normal (06/13/14 4:02 PM) Normal (05/27/14 9:32 AM) Plt Morph 11.2 seconds *LOW* (06/13/14 4:02 PM) 12.3 seconds (05/26/14 12:50 AM) PT [12.0-14.7 seconds] 0.82 9 *LOW* (06/13/14 4:02 PM) 0.92 10 (05/26/14 12:50 AM) INR [0.85-1.17] 31.9 seconds 11 (06/13/14 4:02 PM) 29.4 seconds 12 (05/26/14 12:50 AM) PTT [22.9-35.8 seconds] 9Interpretive Data: RECOMMENDED RANGES FOR PROTIME INR: 2.0-3.0 for most medical and surgical thromboembolic states. 2.5-3.5 for artificial heart valves and recurrent embolism. INR SHOULD BE USED ONLY FOR PATIENTS ON STABLE ANTICOAGULANT THERAPY. 10Interpretive Data: RECOMMENDED RANGES FOR PROTIME INR: 2.0-3.0 for most medical and surgical thromboembolic states. 2.5-3.5 for artificial heart valves and recurrent embolism. INR SHOULD BE USED ONLY FOR PATIENTS ON STABLE ANTICOAGULANT THERAPY. 11Interpretive Data: Heparin Therapeutic Range: 57 - 92 Seconds 12Interpretive Data: Heparin Therapeutic Range: 57 - 92 Seconds Medications Administered During Your Visit No data available for this section Immunizations Vaccine Date Refusal Reason diphtheria/pertussis, acel/tetanus adult 06/08/14 influenza virus vaccine, inactivated 06/09/14 Social History Social History Type Response Employment/School Highest education: High school Smoking Status Never smoker, Exposure to Tobacco Smoke None, Cigarette Smoking Last 365 Days No, Reg Smoking Cessation Counseling Yes Assessment and Plan Extracted from: Title: SCU Progress Note Author: Carola Ponce MD Date: 06/17/14 R2 SCU Note POD#4 S: Pt doing well. No complaints. Pain well controlled, [place] reg diet w/o n/v, +flatus. Voiding/ambulating w/o difficulty. Denies headaches, RUQ pain or visual disturbances. O: VitalsTmp(F)[id number] 06/17 06:3097.5577024/9116------ 06/17 02:2387.7126387/8218------ 06/16 21:4098.2091017/9018------ 06/16 17:5898.3320324/8218------ 06/16 14:2398.3475321/8818------ 24 Hr Tmax: 99.1F (37.28c) at 06/16 10:27Vital Signs are the last 5 in the past 48 hours. NAD RRR CTAB ABd soft, NT, ND, FF Inc c/d/i, steri strips in place Calves nontender 19yo s/p Primary LTCS via pfannenstiel incision 2/2 Pre E with severe features, NRFHT 1. POD#4: AFVSS. 2. Heme. Hb 12.4 --> EBL 500 --> Hb 11.2 3. Pain. Well controlled 4. GI/. [place] reg diet w/o n/v, +flatus. Voiding freely 5. Pre E with severe features: S/P mag. BPs in nml-mild range, on Procardia XL 90mg qD. Creatinine up to 1.2 prior to delivery, down to 1.0 after delivery. Denies sxs PIH. 6. Rh+ / Rub Imm / Darnell / BCM undecided 7. Dispo. Dicharge home today. Carola Ponce MD, PGY-2 Addendum I have seen and evaluated this patient with the resident. I reviewed her laboratory and by Catalino, imaging studies. I agree with the DX. and plan as described in the resident note. Joanna truong on MFM attending 06/17/2014 10:44
--- OUTSIDE RECORDS SUMMARY | 2019-03-16 13:13 | XMS REPORT | Summary of Care ---
Author Organization Unknown Address Unknown Phone Unavailable Encounter [facility](ADDISON) [id number] Date(s): 05/22/14 - 05/23/[address] Discharge Disposition: Home Physician Attending: Thanh Reilly MD Physician Admitting: Thanh Reilly MD Reason for Visit STOMACH PAIN Vital Signs 1 2 3 Most recent to oldest [Reference Range]: 165.1 cm (05/22/14 6:25 PM) Height 97.8 DegF (05/23/14 10:48 AM) 98.2 DegF (05/23/14 6:08 AM) 98.9 DegF (05/22/14 11:31 PM) Temperature Oral [96.4-99.1 DegF] 131 mmHg (05/23/14 10:50 AM) 133 mmHg (05/23/14 10:48 AM) 140 mmHg (05/23/14 6:45 AM) Systolic Blood Pressure [90-140 mmHg] 79 mmHg (05/23/14 10:50 AM) 84 mmHg (05/23/14 10:48 AM) 88 mmHg (05/23/14 6:45 AM) Diastolic Blood Pressure [60-90 mmHg] 18 BRMIN (05/23/14 10:48 AM) 18 BRMIN (05/22/14 11:31 PM) 17 BRMIN (05/22/14 6:15 PM) Respiratory Rate [14-20 BRMIN] 75 bpm (05/23/14 10:48 AM) 71 bpm (05/23/14 6:45 AM) 74 bpm (05/23/14 6:08 AM) Peripheral Pulse Rate [60-100 bpm] 64.091 kg (05/22/14 6:25 PM) Weight 23.51 m2 (05/22/14 6:25 PM) Body Mass Index Problem List Condition Effective Dates Status Health Status Informant (Confirmed) 05/22/14 Active Allergies, Adverse Reactions, Alerts Substance Reaction Severity Status NKDA Active Medications multivitamin, 1 tab, Route: PO, Drug Form: TAB, Dosing Weight 64.091, kg, Daily, Start date: 0 05/23/14 9:00:00, Duration: 30 day, Stop date: 06/21/14 9:00:00 Start Date: 05/23/14 Stop Date: 05/23/14 Status: Discontinued multivitamin, Multivitamins with Folic Acid 1.4 mg oral tablet , chewable 1 tab, PO, Daily, # 30 tab, 3 Refill(s) Start Date: 05/23/14 Status: Ordered Pepcid 20 mg oral tablet 20 mg=1 tab, PO, Q12H, # 60 tab, 1 Refill(s) Start Date: 05/23/14 Status: Ordered Pepcid 20 mg oral tablet 20 mg, 1 tab, Route: PO, Drug form: TAB, Q12H, Dosing Weight 64.091, kg, Start d ate: 05/23/14 9:00:00, Duration: 30 day, Stop date: 06/21/14 21:00:00 Notes: (Same as: Pepcid) Start Date: 05/23/14 Stop Date: 05/23/14 Status: Discontinued Tylenol 650 mg, 2 tab, Route: PO, Drug form: TAB, ONCE, Dosing Weight 64.091, kg, Start date: 05/22/14 18:49:00, Stop date: 05/22/14 18:49:00 Notes: Do not exceed 4 gm/day. (Same as: Tylenol) Start Date: 05/22/14 Stop Date: 05/22/14 Status: Completed Results BLOOD BANK RESULTS Most recent to 1 2 oldest [Reference Range]: ABO/Rh A POS *Unknown* (05/22/14 10:54 PM) Antibody Scrn Negative (05/22/14 10:54 PM) CHEM PANEL Most recent to 1 2 oldest [Reference Range]: Creatinine Lvl 0.5 mg/dL 0.6 mg/dL [0.5-1.4 mg/dL] (05/23/14 4:35 AM) (05/22/14 6:53 PM) eGFR 160 mL/min/1.73m2 1 151 mL/min/1.73m2 2 *NA* *NA* (05/23/14 4:35 AM) (05/22/14 6:53 PM) Uric Acid [2.5-7.0 5.7 mg/dL 5.3 mg/dL mg/dL] (05/23/14 4:35 AM) (05/22/14 6:53 PM) ALT [0-65 unit/L] 15 unit/L 15 unit/L (05/23/14 4:35 AM) (05/22/14 6:53 PM) AST [0-37 unit/L] 19 unit/L 16 unit/L (05/23/14 4:35 AM) (05/22/14 6:53 PM) LDH [98-192 unit/L] 224 unit/L 192 unit/L *HI* (05/22/14 6:53 PM) (05/23/14 4:35 AM) 1Result Comment: The eGFR is calculated using [...] be mul tiplied by the estimated BMI. DRUG SCREEN Most recent to 1 2 oldest [Reference Range]: U Amph Scr Negative [Negative] *NA* (05/22/14 10:59 PM) U Ce Scr Negative [Negative] *NA* (05/22/14 10:59 PM) U Benzodia Scr Negative [Negative] *NA* (05/22/14 10:59 PM) U Cocaine Scr Negative [Negative] *NA* (05/22/14 10:59 PM) U Opiate Scr Negative [Negative] *NA* (05/22/14 10:59 PM) U Phencyc Scr Negative [Negative] *NA* (05/22/14 10:59 PM) U Cannab Scr Negative [Negative] *NA* (05/22/14 10:59 PM) UDS Note See Note 3 *NA* (05/22/14 10:59 PM) 3Interpretive Data: Drugs reported as positive have not [...] Methadone 300 ng/mL Urine alcohol 20 mg/dL URINE CHEM Most recent to 1 2 oldest [Reference Range]: U Creatinine 38.7 mg/dL 4 *NA* (05/22/14 7:00 PM) U Protein 7.6 mg/dL 5 *NA* (05/22/14 7:00 PM) U Prot/Creat 0.2 *NA* (05/22/14 7:00 PM) 4Interpretive Data: No established reference ranges. 5Interpretive Data: No established reference ranges. IMMUNOLOGY Most recent to 1 2 oldest [Reference Range]: Treponemal Scr [Non Non Reactive Reactive] *NA* (05/22/14 10:59 PM) HIV. [Negative] Negative *NA* (05/22/14 10:59 PM) Hep Bs Ag [Negative] Negative *NA* (05/22/14 10:59 PM) HEMATOLOGY Most recent to 1 2 oldest [Reference Range]: WBC [3.7-10.4 K/CMM] 6.9 K/CMM 7.4 K/CMM (05/23/14 4:35 AM) (05/22/14 6:53 PM) RBC [4.20-5.40 3.75 M/CMM 3.99 M/CMM M/CMM] *LOW* *LOW* (05/23/14 4:35 AM) (05/22/14 6:53 PM) Hgb [12.0-16.0 g/dL] 10.8 g/dL 11.5 g/dL *LOW* *LOW* (05/23/14 4:35 AM) (05/22/14 6:53 PM) Hct [36.0-48.0 %] 32.2 % 33.7 % *LOW* *LOW* (05/23/14 4:35 AM) (05/22/14 6:53 PM) MCV [80.0-98.0 fL] 86.0 fL 84.3 fL (05/23/14 4:35 AM) (05/22/14 6:53 PM) MCH [27.0-31.0 pg] 28.9 pg 28.9 pg (05/23/14 4:35 AM) (05/22/14 6:53 PM) MCHC [32.0-36.0 33.6 g/dL 34.2 g/dL g/dL] (05/23/14 4:35 AM) (05/22/14 6:53 PM) RDW [11.5-14.5 %] 12.8 % 12.8 % (05/23/14 4:35 AM) (05/22/14 6:53 PM) Platelet [133-450 226 K/CMM 227 K/CMM K/CMM] (05/23/14 4:35 AM) (05/22/14 6:53 PM) MPV [7.4-10.4 fL] 10.4 fL 10.0 fL (05/23/14 4:35 AM) (05/22/14 6:53 PM) Segs [45.0-75.0 %] 58.0 % 62.2 % (05/23/14 4:35 AM) (05/22/14 6:53 PM) Lymphocytes 29.3 % 24.2 % [20.0-40.0 %] (05/23/14 4:35 AM) (05/22/14 6:53 PM) Monocytes [2.0-12.0 10.8 % 12.1 % %] (05/23/14 4:35 AM) *HI* (05/22/14 6:53 PM) Eosinophils [0.0-4.0 1.2 % 0.8 % %] (05/23/14 4:35 AM) (05/22/14 6:53 PM) Basophils [0.0-1.0 0.7 % 0.7 % %] (05/23/14 4:35 AM) (05/22/14 6:53 PM) Segs-Bands # 4.0 K/CMM 4.6 K/CMM [1.5-8.1 K/CMM] (05/23/14 4:35 AM) (05/22/14 6:53 PM) Lymphocytes # 2.0 K/CMM 1.8 K/CMM [1.0-5.5 K/CMM] (05/23/14 4:35 AM) (05/22/14 6:53 PM) Monocytes # [0.0-0.8 0.7 K/CMM 0.9 K/CMM K/CMM] (05/23/14 4:35 AM) *HI* (05/22/14 6:53 PM) Eosinophils # 0.1 K/CMM 0.1 K/CMM [0.0-0.5 K/CMM] (05/23/14 4:35 AM) (05/22/14 6:53 PM) Basophils # [0.0-0.2 0.1 K/CMM K/CMM] (05/22/14 6:53 PM) Medications Administered During Your Visit No data available for this section Immunizations No data available for this section Social History Social History Type Response Employment/School Highest education: High school Smoking Status Never smoker, Exposure to Tobacco Smoke None, Cigarette Smoking Last 365 Days No, Reg Smoking Cessation Counseling Yes Assessment and Plan Extracted from: Title: Clinical Document Author: Olga Mejia MD Date: 05/23/14 R2 M Progress Note S: No complaints. CHANDLER and CP completely resolved. Denies other sx of preE. No ctx or other complaints. O: VitalsTmp(F)Tmp(C)[id number] 05/23 04:02 118/65---76 05/23 03:32 116/56---81 05/23 03:03 124/58---92 05/23 02:02 120/60---75 05/23 01:32 109/55---83 24 Hr Tmax: 99.4F (37.44c) at 05/22 18:1524 Hr Tmin: 98.9F (37.17c) at 05/22 23:31 36 Hr Tmax: 99.4F (37.44c) at 05/22 18:1536 Hr Tmin: 98.9F (37.17c) at 05/22 23:31 Vital Signs are the last 5 in the past 48 hours. Weights are the last 5 in 60 days, plus initial. DateWt(kg)Wt(lb)Ht(cm)Ht(in)MethodBMIBSA 05/22 (initial) 64.09 [id number] 65.00Stated 23.51.71 Gen: NAD, CV: RRR, Resp: CTAB, GI: soft/ gravid, Ext: nontender calves bilat Labs: HIV neg, HBsAg neg, A+/neg, Hgb 11.5, Treponemal pending, UDS neg, PIH neg, UPC 0.2 FHTs: 150s/ +accels/ mod btbv/ occ variables [place]: no ctx A/P: 19yo @ 27wk4d d/b [...] by positioning. Likely pleuritic. No evidence of NE, CP currently resolved. 3) Br/ +epi/ undecided BCM 4) IUP @ 27wk4d: FHTs reassuring 5) Likely D/C later today if BPs remain well controlled. Will need close follow up in clinic. Olga Mejia MD, PGY2 Addendum Patient seen and examined. by Gei, No pain at this time. Foreign Relieved with Pepcid at 8 AM. Leo Some BP's in mildly elevated range. 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 Weights are the last 5 in 60 days, plus initial. DateWt(kg)Wt(lb)Ht(cm)Ht(in)MethodBMIBSA 05/22 (initial) 64.09 [id number] 65.00Stated 23.51.71 BPs: 142-161/89-100, Sat 100% on RA, Pulse 90s Gen: NAD CV: RRR Resp: CTAB GI: soft/ gravid Ext: nontender calves bilat FHTs: 140s/ +accels/ mod btbv/ occ variables [place]: no ctx SVE: ft/th/high EKG: NSR with nonspecific t wave abnormality 36hr Labs 05/22 1900 U Fzadchdhva43.7 U Protein7.6 U Prot/Creat0.2 05/22 1853 ALT15 AST16 Creatinine Lvl0.6 tVCH685 SVR262 Uric Acid5.3 WBC7.4 RBC3.99 L Hgb11.5 L Hct33.7 L MCV84.3 MCH28.9 MCHC34.2 RDW12.8 Sdgttnil995 MPV10.0 Segs62.2 Ttyrcmzxa78.1 H Xgccokefqea27.2 Eosinophils0.8 Basophils0.7 Segs-Bands #4.6 Lymphocytes #1.8 Monocytes #0.9 H Eosinophils #0.1 Basophils #0.1 A/P: 19yo @ 27wk3d d/b LMP c/w reported 21wk sono presents to triage with complaints of chest [...] Satting 100% on RA. No evidence of NE. Reports pain is sharp, stabbing, affected by positioning. Likely pleuritic. 3) UTI this , s/p tx and neg [place]. No sx currently. 4) Br/ +epi/ undecided BCM 5) IUP @ 27wk3d: FHTs reassuring 6) Ptnt d/w Dr. Jimenez and Dr. Reilly who agree with the above plan Olga Mejia MD, PGY2
--- OUTSIDE RECORDS SUMMARY | 2019-03-16 13:13 | XMS REPORT | Summary of Care ---
Author Organization Unknown Address Unknown Phone Unavailable Encounter [facility] Munoz(ADDISON) [id number] Date(s): 03/02/14 - 03/02/14 [facility] [address] Discharge Diagnosis: Abdominal pain in Discharge Disposition: Home Physician Attending: Jayy Palumbo DO Reason for Visit ABDOMINAL PAIN Vital Signs 1 2 3 Most recent to oldest [Reference Range]: 167.64 cm (03/02/14 8:03 PM) Height 98.0 DegF (03/02/14 11:54 PM) 99.3 DegF *HI* (03/02/14 8:03 PM) Temperature Oral [96.4-99.1 DegF] 118 mmHg (03/02/14 11:54 PM) 119 mmHg (03/02/14 9:57 PM) 119 mmHg (03/02/14 8:03 PM) Systolic Blood Pressure [90-140 mmHg] 70 mmHg (03/02/14 11:54 PM) 75 mmHg (03/02/14 9:57 PM) 75 mmHg (03/02/14 8:03 PM) Diastolic Blood Pressure [60-90 mmHg] 18 BRMIN (03/02/14 11:54 PM) 18 BRMIN (03/02/14 9:57 PM) 20 BRMIN (03/02/14 8:03 PM) Respiratory Rate [14-20 BRMIN] 88 bpm (03/02/14 11:54 PM) 101 bpm *HI* (03/02/14 9:57 PM) 102 bpm *HI* (03/02/14 8:03 PM) Peripheral Pulse Rate [60-100 bpm] 59.091 kg (03/02/14 8:03 PM) Weight 21.03 m2 (03/02/14 8:03 PM) Body Mass Index Problem List No data available for this section Allergies, Adverse Reactions, Alerts Substance Reaction Severity Status NKDA Active Medications Saline Flush 0.9% 5 mL, Route: IVP, Drug Form: INJ, Dosing Weight 59.091, kg, PRN, PRN Line Flush, Start date: 03/02/14 20:45:00, Duration: 30 day, Stop date: 04/01/14 20:44:00 Notes: Same as: BD Posiflush Sterile Start Date: 03/02/14 Stop Date: 03/03/14 Status: Discontinued Results BLOOD BANK RESULTS Most recent to 1 oldest [Reference Range]: ABO/Rh A POS *Unknown* (03/02/14 8:50 PM) ENDOCRINOLOGY Most recent to 1 oldest [Reference Range]: [place] [address] mIU/mL 1 *NA* (03/02/14 8:16 PM) 1Interpretive Data: Reference Range: Male 0 - 5 [...] 8,175 - 55,868 18 8,099 - 58,176 URINE AND STOOL Most recent to 1 oldest [Reference Range]: UA Turbidity [Clear] Clear (03/02/14 8:20 PM) UA Color [Yellow] Yellow *NA* (03/02/14 8:20 PM) UA pH [5.0-8.0] 6.0 (03/02/14 8:20 PM) UA Spec Grav 1.010 [<=1.030] (03/02/14 8:20 PM) UA Glucose [Negative Negative mg/dL mg/dL] (03/02/14 8:20 PM) UA Blood [Negative] Negative (03/02/14 8:20 PM) UA Ketones [Negative Negative mg/dL mg/dL] *NA* (03/02/14 8:20 PM) UA Protein [Negative Negative mg/dL mg/dL] (03/02/14 8:20 PM) UA Urobilinogen 1.0 EU/dL [0.1-1.0 EU/dL] (03/02/14 8:20 PM) UA Bili [Negative] Negative *NA* (03/02/14 8:20 PM) UA Leuk Est Negative [Negative] (03/02/14 8:20 PM) UA Nitrite Negative [Negative] (03/02/14 8:20 PM) UA WBC [None Seen] None Seen (03/02/14 8:20 PM) UA RBC [0-2 /HPF] 0-2 /HPF (03/02/14 8:20 PM) UA Bacteria [None Occasional /HPF Seen /HPF] (03/02/14 8:20 PM) UA Sq Epi [Few] None Seen (03/02/14 8:20 PM) UA Mucus [None Seen] None Seen (03/02/14 8:20 PM) Micro? Performed (03/02/14 8:20 PM) IMMUNOLOGY Most recent to 1 oldest [Reference Range]: CDC HIV 4th GEN Negative [Negative] (03/02/14 8:16 PM) HEMATOLOGY Most recent to 1 oldest [Reference Range]: WBC [3.7-10.4 K/CMM] 4.7 K/CMM (03/02/14 8:16 PM) RBC [4.20-5.40 4.01 M/CMM M/CMM] *LOW* (03/02/14 8:16 PM) Hgb [12.0-16.0 g/dL] 11.5 g/dL *LOW* (03/02/14 8:16 PM) Hct [36.0-48.0 %] 33.2 % *LOW* (03/02/14 8:16 PM) MCV [81.0-99.0 fL] 82.6 fL (03/02/14 8:16 PM) MCH [27.0-31.0 pg] 28.6 pg (03/02/14 8:16 PM) MCHC [32.0-36.0 34.6 g/dL g/dL] (03/02/14 8:16 PM) RDW [11.5-14.5 %] 12.7 % (03/02/14 8:16 PM) Platelet [133-450 259 K/CMM K/CMM] (03/02/14 8:16 PM) MPV [7.4-10.4 fL] 9.5 fL (03/02/14 8:16 PM) Segs [45.0-75.0 %] 60.0 % (03/02/14 8:16 PM) Lymphocytes 29.3 % [20.0-40.0 %] (03/02/14 8:16 PM) Monocytes [2.0-12.0 9.1 % %] (03/02/14 8:16 PM) Eosinophils [0.0-4.0 0.8 % %] (03/02/14 8:16 PM) Basophils [0.0-1.0 0.8 % %] (03/02/14 8:16 PM) Segs-Bands # 2.8 K/CMM [1.5-8.1 K/CMM] (03/02/14 8:16 PM) Lymphocytes # 1.4 K/CMM [1.0-5.5 K/CMM] (03/02/14 8:16 PM) Monocytes # [0.0-0.8 0.4 K/CMM K/CMM] (03/02/14 8:16 PM) Medications Administered During Your Visit No data available for this section Immunizations No data available for this section
--- OUTSIDE RECORDS SUMMARY | 2019-03-16 13:14 | XMS REPORT ---
Author Author [facility] Address Unknown Phone Unavailable Care Team Providers Care Registered Dietitian Name Role Phone KRISTIE LESLIE Unavailable Unavailable BRIANGRETA Unavailable Unavailable Problems This patient has no known problems. Allergies, Adverse Reactions, Alerts This patient has no known allergies or adverse reactions. Medications This patient has no known medications. Results Test Description Test Time Test Comments Text Results Atomic Results Result Comments RAD, CHEST, 2 VIEWS 2018-11-15 14:40:00 Reason for exam:->COUGHIs the patient ?->NoShould this be performed at the bedside?->No FINAL REPORT Chest, PA and lateral. History: Cough. Comparison: None available. Discussion: The cardiomediastinal silhouette and pulmonary vasculature are within normal limits. The lungs are clear without evidence of consolidation or effusion. There are no acute osseous abnormalities. The soft tissues are unremarkable. IMPRESSION: No acute cardiopulmonary abnormality. Signed: Melany Doss Verified Date/Time: 11/15/2018 14:40:12 Reading Location: [address] Radiology Reading Room D INFLUENZA A&B SCREEN 2018-11-15 14:17:00 RAPID INFLUENZA A AG (BEAKER) (test svgn=7193) Negative Negative, Inconclusive RAPID INFLUENZA B AG (BEAKER) (test qmas=6146) Negative Negative, Inconclusive RAPID STREP A [id number] 14:05:00* Test Item Value Reference Range Comments STREP A ANTIGEN (BEAKER) (test deee=760) Negative Negative URINALYSIS W/ REFLEX URINE [id number] 21:54:00* Test Item Value Reference Range Comments COLOR (BEAKER) (test ovem=483) Yellow CLARITY (BEAKER) (test jxfh=155) Clear SPECIFIC GRAVITY UA (BEAKER) (test pare=387) 1.010 1.001-1.035 PH UA (BEAKER) (test ypvv=332) 7.0 5.0-8.0 PROTEIN UA (BEAKER) (test qiik=547) Negative Negative GLUCOSE UA (BEAKER) (test qyze=816) Negative Negative KETONES UA (BEAKER) (test uqxj=602) Negative Negative BILIRUBIN UA (BEAKER) (test socp=260) Negative Negative BLOOD UA (BEAKER) (test yemp=056) Trace Negative NITRITE UA (BEAKER) (test evnt=310) Negative Negative LEUKOCYTE ESTERASE UA (BEAKER) (test zrpo=910) Negative Negative UROBILINOGEN UA (BEAKER) (test utqb=978) 0.2 mg/dL 0.2-1.0 BACTERIA (BEAKER) (test kmer=612) None Seen RBC UA-MANUAL (BEAKER) (test tbth=0182) <5 /HPF WBC UA-MANUAL (BEAKER) (test yevr=9324) None Seen /HPF SQUAMOUS EPITHELIAL MANUAL (BEAKER) (test vzip=6511) <5 /HPF SOURCE(BEAKER) (test qrhs=9776) SCREEN, [id number] 21:51:00* Test Item Value Reference Range Comments TEST URINE (BEAKER) (test kxnm=275) Negative
--- OUTSIDE RECORDS SUMMARY | 2019-03-16 13:14 | XMS REPORT | Summary of Care ---
Author Author [facility] Organization [facility] Address Unknown Phone Unavailable Encounter ALLEN Gonzalez) [phone] Date(s): 12/06/15 - 12/10/15 [facility] [address] [employer] provided by [facility] [place] [address]- Final: related conditions, unspecified, unspecified trimester Discharge Disposition: Home Attending Physician: Jatinder Edwards MD Admitting Physician: Jatinder Edwards MD Vital Signs 1 2 3 Most recent to oldest [Reference Range]: 165.1 cm (12/05/15 10:01 PM) Height 97.9 DegF (12/10/15 8:05 AM) 97.9 DegF (12/10/15 4:00 AM) 97.9 DegF (12/10/15 12:49 AM) Temperature Oral [96.4-99.1 DegF] 135/88 mmHg (12/10/15 8:05 AM) 128/87 mmHg (12/10/15 4:00 AM) 138/90 mmHg (12/10/15 12:49 AM) Blood Pressure [90-140/60-90 mmHg] 18 BRMIN (12/10/15 8:05 AM) 18 BRMIN (12/10/15 4:00 AM) 18 BRMIN (12/10/15 12:49 AM) Respiratory Rate [14-20 BRMIN] 94 bpm (12/10/15 8:05 AM) 100 bpm (12/10/15 4:00 AM) 102 bpm *HI* (12/10/15 12:49 AM) Peripheral Pulse Rate [60-100 bpm] 77.273 kg (12/05/15 10:01 PM) Weight 28.35 m2 (12/05/15 10:01 PM) Body Mass Index Problem List Condition Effective Dates Status Health Status Informant Gestational Active hypertension(Confirm ed) Group B Active streptococcus Pre-eclampsia(Confir Active med) (Confirmed) 12/01/15 - 12/06/15 Resolved (Confirmed) 05/22/14 - 06/13/14 Resolved Allergies, Adverse Reactions, Alerts Substance Reaction Severity Status NKDA Active Medications acetaminophen 650 mg, Route: PO, Drug form: TAB, Q4H, Dosing Weight 77.273, kg, PRN Other -See Comment, Start date: 12/06/15 14:53:00, Duration: 30 day, Stop date: 01/05/16 1 4:52:00 Start Date: 12/06/15 Stop Date: 12/06/15 Status: Discontinued acetaminophen 1,000 mg, 100 mL, Route: IVPB, Drug form: INJ, Q6H, Dosing Weight 77.273, kg, Pr iority: NOW, Start date: 12/06/15 15:10:00, Duration: 24 hr, Stop date: 12/07/15 12:00:00 Notes: Infuse over 15 minutesDo not exceed 4gm/day of acetaminophen MEDICAT ION WASTE Product Size: 1000 mgProduct Wasted: ___ mg Start Date: 12/06/15 Stop Date: 12/07/15 Status: Discontinued acetaminophen-hydrocodone 325 mg-10 mg oral tablet 1 tab, Route: PO, Drug Form: TAB, Dosing Weight 77.273, kg, Q4H, PRN Pain Score 7-10, Start date: 12/06/15 14:53:00, Duration: 30 day, Stop date: 01/05/16 14:52 :00 Notes: Do not exceed 4gm/day of acetaminophen. (Same as: [place] 325/10) Start Date: 12/06/15 Stop Date: 12/10/15 Status: Discontinued acetaminophen-hydrocodone 325 mg-5 mg oral tablet 1 tab, Route: PO, Drug Form: TAB, Dosing Weight 77.273, kg, Q4H, PRN Pain Score 4-6, Start date: 12/06/15 14:53:00, Duration: 30 day, Stop date: 01/05/16 14:52: 00 Notes: (Same as: [place] 325/5) Do not exceed 4gm/day of acetaminophen. Start Date: 12/06/15 Stop Date: 12/10/15 Status: Discontinued APAP/butalbital/caffeine 1 tab, Route: PO, Drug Form: TAB, Q4H, PRN Headache 1-3, Start date: 12/06/15 11 :40:00, Duration: 30 day, Stop date: 01/05/16 11:39:00 Notes: (zwqakijocmagb-brexkwfgpv-utudlnsg 325-50-40mg) Do not exceed 4 gm/day o f acetaminophen. (Same as: Esgic, Fioricet) Start Date: 12/06/15 Stop Date: 12/10/15 Status: Discontinued bisacodyl 10 mg, 1 supp, Route: RI, Drug form: SUPP, PRN, Dosing Weight 77.273, kg, PRN Ot her -See Comment, Start date: 12/06/15 14:53:00, Duration: 30 day, Stop date: 14:52:00 Notes: (Same As: Dulcolax, Bisco-Lax) Start Date: 12/06/15 Stop Date: 12/10/15 Status: Discontinued bisacodyl 15 mg, 3 tab, Route: PO, Drug form: ECTAB, Daily, Dosing Weight 77.273, kg, PRN Other -See Comment, Start date: 12/06/15 14:53:00, Duration: 30 day, Stop date: 01/05/16 14:52:00 Notes: (Same As: Dulcolax, Correctol) (Do Not Crush) "Do Not Crush" Start Date: 12/06/15 Stop Date: 12/10/15 Status: Discontinued calcium gluconate 1 gm, 10 mL, Route: IVP, Drug form: INJ, ONCE, Dosing Weight 77.273, kg, PRN Oth er -See Comment, Start date: 12/05/15 23:05:00 Notes: WASTE: F/P - Sink; E - Municipal Trash Bin Start Date: 12/05/15 Stop Date: 12/07/15 Status: Discontinued carboprost 250 microgram, 1 mL, Route: IM, Drug form: INJ, ONCALL, Dosing Weight 77.273, kg , Start date: 12/06/15 14:00:00, Duration: 30 day, Stop date: 01/05/16 13:59:00 Notes: (Same As: Hemabate) Start Date: 12/06/15 Stop Date: 12/06/15 Status: Discontinued ceFAZolin 2 gm, 100 mL, Route: IVPB, Drug form: INJ, ONCALL, Dosing Weight 77.273, kg, Sta rt date: 12/06/15 14:00:00, Duration: 1 doses or times, Stop date: 12/07/15 0:00 :00 Notes: Same as: Ancef Start Date: 12/06/15 Stop Date: 12/06/15 Status: Completed citric acid-sodium citrate 30 mL, Route: PO, Drug Form: SOLN, Dosing Weight 77.273, kg, ONCE, Start date: 0 12/06/15 13:39:00, Duration: 1 doses or times, Stop date: 12/06/15 13:39:00 Notes: (Same As: Fina, Cytra-2) Sodium citrate-citric acid (500-334 mg/5 mL): 1 mL contains sodium 1 mEq/mL and bicarbonate 1 mEq/mL Start Date: 12/06/15 Stop Date: 12/06/15 Status: Discontinued Depo-Provera 150 mg, 1 mL, Route: IM, Drug form: INJ, ONCE, Dosing Weight 77.273, kg, Start d ate: 12/09/15 9:19:00, Stop date: 12/09/15 9:19:00 Notes: (Same as: Depo-Provera)This is NOT Depo-SubQ Provera 104For IM use only MEDICATION WASTE Product Size: 150 mgProduct Wasted: ___ mg Start Date: 12/09/15 Stop Date: 12/09/15 Status: Completed dexamethasone 4 mg, 1 mL, Route: IVP, Drug form: INJ, Q6H, Dosing Weight 77.273, kg, PRN Nause a & Vomiting, Start date: 12/06/15 15:10:00, Duration: 24 hr, Stop date: 12/07/15 15:09:00 Notes: Concentration: 4mg/ml Start Date: 12/06/15 Stop Date: 12/07/15 Status: Completed diphtheria/pertussis, acel/tetanus adult 2 units-15.5 mcg-5 units/0.5 mL intramu scular suspension 0.5 mL, Route: IM, Drug Form: INJ, Dosing Weight 77.273, kg, ONCALL, Start date: 12/06/15 15:00:00, Duration: 1 doses or times Notes: (Tdap ) For Adolecent and Adult use For IM Use. Same as: Adacel (Tdap) Start Date: 12/06/15 Stop Date: 12/09/15 Status: Deleted Fioricet with Codeine 1 cap, Route: PO, Drug Form: CAP, Dosing Weight 77.273, kg, Q4H, PRN Headache 1- 5, Start date: 12/06/15 11:08:00, Duration: 30 day, Stop date: 01/05/16 11:07:00 Start Date: 12/06/15 Stop Date: 12/06/15 Status: Discontinued ibuprofen 600 mg, Route: PO, Drug form: TAB, Q6H, Dosing Weight 77.273, kg, Start date: 18:00:00, Duration: 30 day, Stop date: 01/05/16 12:00:00 Start Date: 12/06/15 Stop Date: 12/06/15 Status: Canceled ibuprofen 800 mg oral tablet 800 mg=1 tab, PO, Q8H, PRN Pain Score 6-10, # 30 tab, 0 Refill(s) Start Date: 12/10/15 Status: Ordered ketOROLAC 30 mg, 1 mL, Route: IVP, Drug form: INJ, Q6H, Dosing Weight 77.273, kg, PRN Pain Score 4-6, Start date: 12/06/15 15:10:00, Duration: 24 hr, Stop date: 12/07/15 15:09:00 Notes: (Same as:Toradol) IV bolus must be given >15 seconds. Give IM administration slowly and deeply into the muscle.Not for use > 4 days MEDICATION WASTE Product Size: 30 mgProduct Wasted: ___ mg Start Date: 12/06/15 Stop Date: 12/07/15 Status: Completed labetalol 80 mg, Route: IVP, Drug form: INJ, ONCE, Dosing Weight 77.273, kg, Start date: 0 12/05/15 23:56:00, Stop date: 12/05/15 23:56:00 Start Date: 12/05/15 Stop Date: 12/06/15 Status: Completed labetalol 20 mg, Route: IVP, Drug form: INJ, ONCE, Dosing Weight 77.273, kg, PRN Hypertens ion, Start date: 12/05/15 22:15:00 Start Date: 12/05/15 Stop Date: 12/05/15 Status: Completed labetalol 40 mg, 8 mL, Route: IVP, Drug form: INJ, ONCE, Dosing Weight 77.273, kg, PRN Hyp ertension, Start date: 12/05/15 22:41:00, Stop date: 01/04/16 22:40:00 Start Date: 12/05/15 Stop Date: 12/05/15 Status: Completed labetalol 80 mg, Route: IVP, Drug form: INJ, ONCE, Dosing Weight 77.273, kg, Start date: 0 12/05/15 23:13:00, Stop date: 12/05/15 23:13:00 Start Date: 12/05/15 Stop Date: 12/05/15 Status: Discontinued Lactated Ringers (Bolus) IV 1,000 mL, 1,000 ml/hr, Infuse Over: 1 hr, Route: IV, 1,000, Drug form: INJ, ONCE , Dosing Weight 77.273 kg, Start date: 12/06/15 13:39:00, Stop date: 12/06/15 13 :39:00 Start Date: 12/06/15 Stop Date: 12/06/15 Status: Completed Lactated Ringers Injection IV 1,000 mL 1,000 mL, Rate: 125 ml/hr, Infuse over: 8 hr, Route: IV, Dosing Weight 77.273 kg , Total Volume: 1,000, Start date: 12/06/15 13:39:00, Duration: 30 day, Stop toni e: 01/05/16 13:38:00 Start Date: 12/06/15 Stop Date: 12/06/15 Status: Discontinued Lactated Ringers IV 1,000 mL 1,000 mL, Rate: 100 ml/hr, Infuse over: 10 hr, Route: IV, Dosing Weight 77.273 k g, Total Volume: 1,000, Start date: 12/06/15 14:53:00, Duration: 30 day, Stop da te: 01/05/16 14:52:00 Start Date: 12/06/15 Stop Date: 12/10/15 Status: Discontinued lanolin topical cream 1 appl, Route: TOP, PRN, Drug form: OINT, PRN Other -See Comment, Start date: 14:53:00, Duration: 30 day, Stop date: 01/05/16 14:52:00 Notes: (Same as:Lanolin) Start Date: 12/06/15 Stop Date: 12/10/15 Status: Discontinued LR IV 1,000 mL 1,000 mL, Rate: 1,000 ml/hr, Infuse over: 1 hr, Route: IV, Dosing Weight 77.273 kg, Total Volume: 1,000, Start date: 12/05/15 23:54:00, Duration: 1 doses or nicholas es, Stop date: 12/06/15 0:53:00 Start Date: 12/05/15 Stop Date: 12/06/15 Status: Completed M-M-R II 0.5 mL, Route: SUB-Q, Drug Form: PDR/INJ, Dosing Weight 77.273, kg, ONCALL, Star t date: 12/06/15 15:00:00, Duration: 1 doses or times Notes: (Same as: M-M-R II) (kjoduux-piuyp-cfgcgne virus vaccine 0.5 ml INJ VL)WA JAIAD: F/P - Red; E -Red GIVE PRIOR TO DISCHARGE Start Date: 12/06/15 Stop Date: 12/10/15 Status: Discontinued magnesium sulfate 20 gm/500 ml solution 20 gm 500 mL, Rate: 50 ml/hr, Infuse over: 10 hr, Route: IV, Dosing Weight 77.273 kg, Total Volume: 500, Start date: 12/05/15 23:05:00, Duration: 30 day, Stop date: 0 01/04/16 23:04:00 Notes: (Same as: MgSO4)WASTE: F/P - Sink; E - Municipal Trash Bin Start Date: 12/05/15 Stop Date: 12/07/15 Status: Discontinued magnesium sulfate 6 gm / 100 mL solution 6 gm, 50 mL, Route: IVPB, Drug form: INJ, ONCE, Dosing Weight 77.273, kg, Loadin g dose; Dilute in 100 ml; Infuse over 30 minutes @ 200 ml/hr (STOP: Above a 6 gm loading dose, call Pharmacist or Physician), Start date: 12/05/15 23:05:00, D uration: 1... Notes: Houc=099 mg/ml. Total volume=50 ml. Bolus dose. Run over 30 minutes.WAS TE: F/P - Sink; E - Municipal Trash Bin Start Date: 12/05/15 Stop Date: 12/05/15 Status: Completed methylergonovine 0.2 mg, 1 mL, Route: IM, Drug form: INJ, ONCALL, Dosing Weight 77.273, kg, Start date: 12/06/15 14:00:00, Duration: 30 day, Stop date: 01/05/16 13:59:00 Notes: (Same as:Methergine) Start Date: 12/06/15 Stop Date: 12/06/15 Status: Discontinued metoclopramide 10 mg, 2 mL, Route: IV, Drug form: INJ, Q6H, Dosing Weight 77.273, kg, PRN Nause a & Vomiting, Start date: 12/06/15 13:39:00, Duration: 30 day, Stop date: 01/05/16 13:38:00 Notes: (Same as: Reglan) Start Date: 12/06/15 Stop Date: 12/06/15 Status: Discontinued misoprostol 1,000 microgram, 5 tab, Route: RI, Drug form: TAB, ONCALL, Dosing Weight 77.273, kg, Start date: 12/06/15 14:00:00, Duration: 30 day, Stop date: 01/05/16 13:59: 00 Notes: (Same as:Cytotec) Take with food Start Date: 12/06/15 Stop Date: 12/06/15 Status: Discontinued morphine Sulfate 2 mg, 1 mL, Route: IVP, Drug form: INJ, Q2H, Dosing Weight 77.273, kg, PRN Pain Score 7-10, Start date: 12/06/15 13:39:00, Duration: 30 day, Stop date: 01/05/16 13:38:00 Notes: (Same as:MORPhine Sulfate) Start Date: 12/06/15 Stop Date: 12/06/15 Status: Discontinued multivitamin, 1 tab, Route: PO, Drug Form: TAB, Dosing Weight 77.273, kg, Daily, Start date: 0 12/06/15 9:00:00, Duration: 30 day, Stop date: 01/04/16 9:00:00 Start Date: 12/06/15 Stop Date: 12/06/15 Status: Discontinued nalbuphine 2 mg, Route: IVP, Q2H, Dosing Weight 77.273, kg, PRN Itching, Start date: 15:10:00, Duration: 5 doses or times, Stop date: Limited # of times Start Date: 12/06/15 Stop Date: 12/06/15 Status: Discontinued naloxone 0.1 mg, 0.25 mL, Route: SUB-Q, Drug form: INJ, Q6H, Dosing Weight 77.273, kg, RI N Itching, Start date: 12/06/15 15:10:00, Duration: 24 hr, Stop date: 12/07/15 1 5:09:00 Notes: Same as Selam Start Date: 12/06/15 Stop Date: 12/07/15 Status: Completed naloxone 0.4 mg, 1 mL, Route: IVP, Drug form: INJ, ONCALL, Dosing Weight 77.273, kg, Star t date: 12/06/15 16:00:00, Duration: 24 hr, Stop date: 12/07/15 15:59:00 Notes: Same as Selam Start Date: 12/06/15 Stop Date: 12/07/15 Status: Discontinued NIFEdipine 30 mg oral tablet, extended release 30 mg=1 tab, PO, Daily, # 30 tab, 0 Refill(s) Start Date: 12/10/15 Status: Ordered Ofirmev 1,000 mg, 100 mL, Route: IV, Drug form: INJ, Q6H, Dosing Weight 77.273, kg, for > or=50 kg, Start date: 12/06/15 18:00:00, Duration: 1 day, Stop date: 12/07/15 12:00:00 Notes: Infuse over 15 minutesDo not exceed 4gm/day of acetaminophen MEDICAT ION WASTE Product Size: 1000 mgProduct Wasted: ___ mg Start Date: 12/06/15 Stop Date: 12/06/15 Status: Discontinued Ofirmev 1 gm, 100 mL, Route: IV, Drug form: INJ, Q6H, Start date: 12/07/15 0:10:00, Dura tion: 3 doses or times, Stop date: 12/07/15 12:00:00 Notes: Infuse over 15 minutesDo not exceed 4gm/day of acetaminophen MEDICAT ION WASTE Product Size: 1000 mgProduct Wasted: ___ mg Start Date: 12/07/15 Stop Date: 12/07/15 Status: Completed Ofirmev 1,000 mg, 100 mL, Route: IV, Drug form: INJ, ONCE, Dosing Weight 77.273, kg, PRN Headache 6-10, for > or=50 kg, Start date: 12/06/15 1:02:00, Stop date: 01/05/16 1:01:00 Notes: Infuse over 15 minutesDo not exceed 4gm/day of acetaminophen MEDICAT ION WASTE Product Size: 1000 mgProduct Wasted: ___ mg Start Date: 12/06/15 Stop Date: 12/06/15 Status: Completed Ofirmev 1,000 mg, 100 mL, Route: IV, Drug form: INJ, ONCE, Dosing Weight 77.273, kg, Latonya ority: STAT, Start date: 12/06/15 8:19:00, Stop date: 12/06/15 8:19:00 Notes: Infuse over 15 minutesDo not exceed 4gm/day of acetaminophen MEDICAT ION WASTE Product Size: 1000 mgProduct Wasted: ___ mg Start Date: 12/06/15 Stop Date: 12/06/15 Status: Completed Ofirmev 1,000 mg, 100 mL, Route: IV, Drug form: INJ, ONCE, Dosing Weight 77.273, kg, PRN Pain Score 1-3, for > or=50 kg, Start date: 12/06/15 7:40:00 Notes: Infuse over 15 minutesDo not exceed 4gm/day of acetaminophen MEDICAT ION WASTE Product Size: 1000 mgProduct Wasted: ___ mg Start Date: 12/06/15 Stop Date: 12/10/15 Status: Discontinued ondansetron 4 mg, 2 mL, Route: IVP, Drug form: INJ, Q8H, Dosing Weight 77.273, kg, PRN Nause a & Vomiting, Start date: 12/06/15 13:39:00, Duration: 30 day, Stop date: 01/05/16 13:38:00 Notes: (Same as: Violetta) MEDICATION WASTE Product Size: 4 mgProduct Was johnie: ___ mg Start Date: 12/06/15 Stop Date: 12/06/15 Status: Discontinued ondansetron 4 mg, 2 mL, Route: IVP, Drug form: INJ, Q6H, Dosing Weight 77.273, kg, PRN Nause a & Vomiting, Start date: 12/06/15 15:10:00, Duration: 24 hr, Stop date: 12/07/15 15:09:00 Notes: (Same as: Violetta) MEDICATION WASTE Product Size: 4 mgProduct Was johnie: ___ mg Start Date: 12/06/15 Stop Date: 12/07/15 Status: Completed oxytocin 30 units in D5LR 500mL (Titrate) IV 30 unit 30 unit, 500 mL, Rate: 42 ml/hr, Infuse over: 11.9 hr, Dosing Weight 77.273, kg, Route: IV, Total Volume: 500 mL, Start date: 12/06/15 14:53:00, Duration: 1 dos es or times, Stop date: 12/07/15 2:46:00, Replace Every: 11.9 hr Notes: (Same as: OXYTOCIN-D5LR) Start Date: 12/06/15 Stop Date: 12/06/15 Status: Completed oxytocin 30 units in D5LR 500mL (Titrate) IV 30 unit 30 unit, 500 mL, Rate: 42 ml/hr, Infuse over: 11.9 hr, Dosing Weight 77.273, kg, Route: IV, Total Volume: 500 mL, Start date: 12/06/15 13:39:00, Duration: 1 dos es or times, Stop date: 12/07/15 1:32:00, Replace Every: 11.9 hr Notes: (Same as: OXYTOCIN-D5LR) Start Date: 12/06/15 Stop Date: 12/06/15 Status: Discontinued Multivitamins oral tablet 1 tab, Route: PO, Drug Form: TAB, Dosing Weight 77.273, kg, Daily, Start date: 0 12/07/15 9:00:00, Duration: 30 day, Stop date: 01/05/16 9:00:00 Start Date: 12/07/15 Stop Date: 12/10/15 Status: Discontinued -U oral capsule 1 cap, PO, Daily, 0 Refill(s) Start Date: 12/05/15 Status: Ordered Procardia XL 30 mg, 1 tab, Route: PO, Drug form: ERTAB, Daily, Dosing Weight 77.273, kg, Star t date: 12/05/15 23:30:00, Duration: 30 day, Stop date: 01/04/16 9:00:00 Notes: (Same as: Adalat CC, Procardia XL) Give on empty stomach. Take 1 hour be fore or 2 hours after meal; "Avoid grapefruit and grapefruit juice". Do not cru sh Start Date: 12/05/15 Stop Date: 12/10/15 Status: Discontinued Saline Flush 0.9% 10 ml, Route: IVP, Drug Form: INJ, Dosing Weight 77.273, kg, PRN, PRN Line Flush , Start date: 12/06/15 14:53:00, Duration: 30 day, Stop date: 01/05/16 14:52:00 Notes: Same as: BD Posiflush Sterile Start Date: 12/06/15 Stop Date: 12/10/15 Status: Discontinued Saline Flush 0.9% 10 ml, Route: IVP, Drug Form: INJ, Dosing Weight 77.273, kg, Q12H, Start date: 0 12/06/15 21:00:00, Duration: 30 day, Stop date: 01/05/16 9:00:00 Notes: Same as: BD Posiflush Sterile Start Date: 12/06/15 Stop Date: 12/10/15 Status: Discontinued simethicone 160 mg, 2 tab, Route: PO, Drug form: CHEWTAB, Q8H, Dosing Weight 77.273, kg, PRN Gas, Start date: 12/06/15 14:53:00, Duration: 30 day, Stop date: 01/05/16 14:52 :00 Notes: (Same as: Mylicon) Start Date: 12/06/15 Stop Date: 12/10/15 Status: Discontinued terbutaline 0.25 mg, 0.25 mL, Route: SUB-Q, Drug form: INJ, ONCALL, Dosing Weight 77.273, kg , PRN Other -See Comment, Start date: 12/06/15 13:39:00, Duration: 1 doses or ti mes, Stop date: 12/07/15 0:00:00 Notes: DO NOT USE IN [employer] AREA(Same As: Oscar) Start Date: 12/06/15 Stop Date: 12/06/15 Status: Discontinued tramadol 50 mg oral tablet 50 mg, 1 tab, Route: PO, Drug form: TAB, Q4H, Dosing Weight 77.273, kg, PRN Pain Score 1-3, Start date: 12/07/15 6:00:00, Duration: 30 day, Stop date: 01/06/16 5:59:00 Notes: Not to exceed 400mg/day. (Same As: Sha) Start Date: 12/07/15 Stop Date: 12/10/15 Status: Discontinued Tylenol with Codeine #3 oral tablet 1 - 2 tab, PO, Q6H, PRN Pain, X 4 day, # 32 tab, 0 Refill(s) Start Date: 12/10/15 Stop Date: 12/14/15 Status: Ordered zolpidem 5 mg, 1 tab, Route: PO, Drug form: TAB, Bedtime, Dosing Weight 77.273, kg, PRN I nsomnia, Start date: 12/06/15 14:53:00, Duration: 30 day, Stop date: 01/05/16 14 :52:00 Notes: (Same As: Maylin) Start Date: 12/06/15 Stop Date: 12/10/15 Status: Discontinued Results BLOOD BANK RESULTS Most recent to 1 2 oldest [Reference Range]: ABO/Rh A POS *Unknown* (12/05/15 11:26 PM) Antibody Scrn Negative (12/05/15 11:26 PM) CHEM PANEL Most recent to 1 2 oldest [Reference Range]: Creatinine Lvl 0.58 mg/dL [0.50-1.40 mg/dL] (12/05/15 11:16 PM) eGFR 152 mL/min/1.73m2 1 *NA* (12/05/15 11:16 PM) Uric Acid [2.5-7.0 5.7 mg/dL mg/dL] (12/05/15 11:16 PM) ALT [0-65 unit/L] 18 unit/L (12/05/15 11:16 PM) AST [0-37 unit/L] 27 unit/L (12/05/15 11:16 PM) LDH [98-192 unit/L] 275 unit/L *HI* (12/05/15 11:16 PM) 1Result Comment: The eGFR is calculated using [...] to 1 2 oldest [Reference Range]: U Alcohol [Negative] Negative *NA* (12/05/15 11:16 PM) U Methadone Scr Negative [Negative] *NA* (12/05/15 11:16 PM) U Propoxyph Scr Negative [Negative] *NA* (12/05/15 11:16 PM) U Amph Scr Negative [Negative] *NA* (12/05/15 11:16 PM) U Ce Scr Negative [Negative] *NA* (12/05/15 11:16 PM) U Benzodia Scr Negative [Negative] *NA* (12/05/15 11:16 PM) U Cocaine Scr Negative [Negative] *NA* (12/05/15 11:16 PM) U Opiate Scr Negative [Negative] *NA* (12/05/15 11:16 PM) U Phencyc Scr Negative [Negative] *NA* (12/05/15 11:16 PM) U Cannab Scr Negative [Negative] *NA* (12/05/15 11:16 PM) UDS Note See Note (12/05/15 11:16 PM) URINE CHEM Most recent to 1 2 oldest [Reference Range]: U Creatinine 73.50 mg/dL *NA* (12/05/15 11:16 PM) U Protein 1033.3 mg/dL *NA* (12/05/15 11:16 PM) U Prot/Creat 14.1 *NA* (12/05/15 11:16 PM) IMMUNOLOGY Most recent to 1 2 oldest [Reference Range]: Rubella IgG [>=10.0 62.7 IU/mL IU/mL] (12/07/15 5:23 AM) HEMATOLOGY Most recent to 1 2 oldest [Reference Range]: WBC [3.7-10.4 K/CMM] 9.3 K/CMM (12/05/15 11:16 PM) RBC [4.20-5.40 4.36 M/CMM M/CMM] (12/05/15 11:16 PM) Hgb [12.0-16.0 g/dL] 11.4 g/dL 11.9 g/dL *LOW* *LOW* (12/06/15 8:42 PM) (12/05/15 11:16 PM) Hct [36.0-48.0 %] 34.9 % 35.7 % *LOW* *LOW* (12/06/15 8:42 PM) (12/05/15 11:16 PM) MCV [80.0-98.0 fL] 81.8 fL (12/05/15 11:16 PM) MCH [27.0-31.0 pg] 27.2 pg (12/05/15 11:16 PM) MCHC [32.0-36.0 33.3 g/dL g/dL] (12/05/15 11:16 PM) RDW [11.5-14.5 %] 13.3 % (12/05/15 11:16 PM) Platelet [133-450 256 K/CMM K/CMM] (12/05/15 11:16 PM) MPV [7.4-10.4 fL] 10.5 fL *HI* (12/05/15 11:16 PM) Segs [45.0-75.0 %] 60.3 % (12/05/15 11:16 PM) Lymphocytes 24.6 % [20.0-40.0 %] (12/05/15 11:16 PM) Monocytes [2.0-12.0 14.4 % %] *HI* (12/05/15 11:16 PM) Eosinophils [0.0-4.0 0.4 % %] (12/05/15 11:16 PM) Basophils [0.0-1.0 0.3 % %] (12/05/15 11:16 PM) Segs-Bands # 5.6 K/CMM [1.5-8.1 K/CMM] (12/05/15 11:16 PM) Lymphocytes # 2.3 K/CMM [1.0-5.5 K/CMM] (12/05/15 11:16 PM) Monocytes # [0.0-0.8 1.3 K/CMM K/CMM] *HI* (12/05/15 11:16 PM) Immunizations Vaccine Date Refusal Reason diphtheria/pertussis, acel/tetanus adult 12/09/15 diphtheria/pertussis, acel/tetanus adult 06/08/14 influenza virus vaccine, inactivated 06/09/14 Procedures No data available for this section Social History Social History Type Response Employment/School Highest education level: High school. Smoking Status Never smoker; Exposure to Tobacco Smoke None; Cigarette Smoking Last 365 Days No; Reg Smoking Cessation Counseling Yes Assessment and Plan Extracted from: Title: C/S Progress Note Author: Kirsten Yates MD Date: 12/10/15 Patient: MIKHAIL CERVANTES Age: 20 years Sex: Female : 1995 Associated Diagnoses: None Author: Kirtsen Yates MD Subjective Pt. doing well, no complaints. Meeting all post-op milestones. Denies s/sx of anemia and PreE. Physical Examination VS/Measurements Inpatient Vital signs (ST) VitalsTmp(F)[id number] 12/09 04:[id number]--- 12/09 00:4997.5103161/458094--- 12/08 20:5598.3560778/775279--- 12/08 16:1898.504533/694423--- 12/08 12:1097.208550/391211--- 24 Hr Tmax: 98.2F (36.78c) at 12/08 20:55Vital Signs are the last 5 in the [...] review: Labs (Last four charted values) WBC 9.3(DEC 04) Hgb L 11.4(DEC 05)L 11.9(DEC 04) Hct L 34.9(DEC 05)L 35.7(DEC 04) Plt 256(DEC 04) Cr 0.58(DEC 04). Impression and Plan A/P: 20yo now s/p repeat LTCS at 31wk 2/2 preeclampsia with severe features with unresolved CHANDLER 1. POD#4: AFVSS 2. Pain: Controlled 3. Heme: Hgb 11.9--> EBL 700cc--> 11.4. No s/sx of anemia 4. GI/: [place] regular diet, +flatus; voiding freely 5. Pre-eclampsia [...] d/w Dr. Catalino Yates MD PGY-2 Addendum I have seen and evaluated this patient with the resident. I reviewed her laboratory and by Catalino, imaging studies. I agree with the DX. and plan as described in the resident note. Joanna truong on MFM attending 12/10/2015 10:36 Addendum Dictation # [id number] by Kirsten Yates MD Letitia PGY-2 Chanelle MCCANN on 12/11/2015 09:32 Extracted from: Title: Clinical Document Author: Jatinder Edwards MD Date: [...] 0.6 at that time. S/p BMZ X2 , no Mag at that time. 3. PNLs: Reports abnormal 1 hr GTT, just performed 3 hr GTT results not known. Otherwise labs wnl. 4. Prior CS: Doc LTCS 2/2 NRFHTs. IOL 2/2 Pre-E with severe features. Desires repeat CS as MOD. Declinse . 5. MFM sono 12/01: Cephalic; 1618g; 36%; KALEY: 10.6; BPP: 04/17 6. Darnell/ BCM unsure: declines BTL OBHx: 2013: Female, Primary doc LTCS at 30 wks 2/2 NRFHTs, comp by severe pre-E/IUGR, 2#1oz (1020g), [facility] [place] GYNHx: Tzkvvejy25/Reg/3d Denies STDs/abnormal paps PMH: denies PSH: CS X1 Meds: PNV All: NKDA, denies latex/ iodine allergies SH: Negx3 FH:Denies Physical Examination VitalsTmp(F)Tmp(C)[id number] 12/04 22:0398.837.84trpf932/116---8118--------- 24 Hr Tmax: 98.8F (37.11c) at 12/04 22:0324 Hr Tmin: 98.8F (37.11c) at 12/04 22:03 36 Hr Tmax: 98.8F (37.11c) at 12/04 22:0336 Hr Tmin: 98.8F (37.11c) at 12/04 22:03 Vital Signs are the last 5 in the past 48 hours. Weights are the last 5 in 60 days, plus initial. DateWt(kg)Wt(lb)Ht(cm)Ht(in)MethodBMIBSA 12/04 (initial) 77.27 170.00Estimated [id number] 65.10 65.00Stated repeat BPs in order from first to [...] low as the 50s after contractions approx [id number] which respond to oxygen, maternal positioning and fluid bolus Lehr: occ ctx Accucheck: 105 BSUS: cephalic A/P: 20yo at 31wk2d dated by LMP c/w doc 20wk sono with preeclampsia without severe features, h/o preeclampsia in prior requiring delivery at 30wks, who presents to triage with c/o elevated BPs now with dx of preeclampsia with severe features 1) Preeclampsia with severe features: Multiple severe range BPs in triage requiring IV labetalol /80. 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 Will be for repeat CS if FHTs do not improve with resuscitation. D/w Dr Lazo who agrees w above plan Olga Mejia MD, PGY3 R4 Addendum: 20yo at 31wk2d with preeclampsia with severe features given need for multiple doses of IV meds. No sx pre-e currenlty. 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 s/p BMZ on 11/30-. Not due for rescue course. Will start procardia 30XL qd. BPs now nl-mild range. Pt also with cat II strip based on several spontaneous decles up to [id number]. Will keep on continuous monitoring at this [...]
--- OUTSIDE RECORDS SUMMARY | 2019-03-16 13:14 | XMS REPORT | Summary of Care ---
Author Author [facility] Organization [facility] Address Unknown Phone Unavailable Encounter ALLEN Munoz(ADDISON) [id number] Date(s): 12/01/15 - 12/03/15 [facility] [address] [employer] provided by [facility] [place] [address]- Discharge Disposition: Home Attending Physician: Andres Mayberry MD Admitting Physician: Andres Mayberry MD Vital Signs 1 2 3 Most recent to oldest [Reference Range]: 165.1 cm (12/01/15 11:49 AM) Height 97.9 DegF (12/03/15 9:49 AM) 98.1 DegF (12/03/15 6:00 AM) 98.2 DegF (12/03/15 2:00 AM) Temperature Oral [96.4-99.1 DegF] 160/86 mmHg *HI* (12/03/15 9:49 AM) 141/82 mmHg *HI* (12/03/15 6:00 AM) 145/79 mmHg *HI* (12/03/15 2:00 AM) Blood Pressure [90-140/60-90 mmHg] 18 BRMIN (12/03/15 9:49 AM) 18 BRMIN (12/03/15 6:00 AM) 18 BRMIN (12/03/15 2:00 AM) Respiratory Rate [14-20 BRMIN] 80 bpm (12/03/15 9:49 AM) 99 bpm (12/03/15 6:00 AM) 102 bpm *HI* (12/03/15 2:00 AM) Peripheral Pulse Rate [60-100 bpm] 77.273 kg (12/01/15 11:49 AM) Weight 28.35 m2 (12/01/15 11:49 AM) Body Mass Index Problem List Condition Effective Dates Status Health Status Informant Gestational Active hypertension(Confirm ed) Group B Active streptococcus Pre-eclampsia(Confir Active med) (Confirmed) 12/01/15 Active (Confirmed) 05/22/14 - 06/13/14 Resolved Allergies, Adverse Reactions, Alerts Substance Reaction Severity Status NKDA Active Medications betamethasone 12 mg, 2 mL, Route: IM, Drug form: INJ, Q24H, Dosing Weight 77.273, kg, Priority : NOW, Start date: 12/01/15 15:31:00, Duration: 2 doses or times, Stop date: 15:31:00 Notes: (betamethasone acetate-sodium phosphate 6 mg/ml INJ) (Same As: Celestone Soluspan) Start Date: 12/01/15 Stop Date: 12/02/15 Status: Completed D5LR 1,000 mL 1,000 mL, Rate: 75 ml/hr, Infuse over: 13.3 hr, Route: IV, Dosing Weight 77.273 kg, Total Volume: 1,000, Start date: 12/01/15 12:59:00, Duration: 30 day, Stop d ate: 12/31/15 12:58:00 Start Date: 12/01/15 Stop Date: 12/03/15 Status: Discontinued multivitamin, 1 tab, Route: PO, Drug Form: TAB, Dosing Weight 77.273, kg, Daily, Start date: 0 12/02/15 9:00:00, Duration: 30 day, Stop date: 12/31/15 9:00:00 Start Date: 12/02/15 Stop Date: 12/03/15 Status: Discontinued Results BLOOD BANK RESULTS Most recent to 1 oldest [Reference Range]: ABO/Rh A POS *Unknown* (12/01/15 3:37 PM) Antibody Scrn Negative (12/01/15 3:37 PM) ELECTROLYTES Most recent to 1 oldest [Reference Range]: Sodium Lvl [135-145 139 mEq/L mEq/L] (12/01/15 12:53 PM) Potassium Lvl 3.8 mEq/L [3.5-5.1 mEq/L] (12/01/15 12:53 PM) Chloride Lvl [95-109 106 mEq/L mEq/L] (12/01/15 12:53 PM) CO2 [24-32 mEq/L] 24 mEq/L (12/01/15 12:53 PM) AGAP [10.0-20.0 12.8 mEq/L mEq/L] (12/01/15 12:53 PM) CHEM PANEL Most recent to 1 oldest [Reference Range]: Creatinine Lvl 0.58 mg/dL [0.50-1.40 mg/dL] (12/01/15 12:53 PM) eGFR 151 mL/min/1.73m2 1 *NA* (12/01/15:53 PM) BUN [7-22 mg/dL] 6 mg/dL *LOW* (12/01/15 12:53 PM) B/C Ratio [6-25] 10 (12/01/15 12:53 PM) Glucose Lvl [70-99 84 mg/dL mg/dL] (12/01/15 12:53 PM) Total Protein 7.9 g/dL [6.4-8.4 g/dL] (12/01/15 12:53 PM) Albumin Lvl [3.5-5.0 3.0 g/dL g/dL] *LOW* (12/01/15 12:53 PM) Globulin [2.0-4.0 4.9 g/dL g/dL] *HI* (12/01/15 12:53 PM) A/G Ratio [0.7-1.6] 0.6 *LOW* (12/01/15 12:53 PM) Calcium Lvl 9.1 mg/dL [8.5-10.5 mg/dL] (12/01/15 12:53 PM) ALT [0-65 unit/L] 16 unit/L (12/01/15 12:53 PM) AST [0-37 unit/L] 17 unit/L (12/01/15 12:53 PM) Alk Phos [39-136 92 unit/L unit/L] (12/01/15 12:53 PM) Bili Total [0.2-1.3 0.2 mg/dL mg/dL] (12/01/15 12:53 PM) 1Result Comment: The eGFR is calculated [...] BMI. DRUG SCREEN Most recent to 1 oldest [Reference Range]: U Amph Scr Negative [Negative] *NA* (12/01/15 3:37 PM) U Ce Scr Negative [Negative] *NA* (12/01/15 3:37 PM) U Benzodia Scr Negative [Negative] *NA* (12/01/15 3:37 PM) U Cocaine Scr Negative [Negative] *NA* (12/01/15 3:37 PM) U Opiate Scr Negative [Negative] *NA* (12/01/15 3:37 PM) U Phencyc Scr Negative [Negative] *NA* (12/01/15 3:37 PM) U Cannab Scr Negative [Negative] *NA* (12/01/15 3:37 PM) UDS Note See Note *NA* (12/01/15 3:37 PM) URINE CHEM Most recent to 1 oldest [Reference Range]: U Creatinine 326.00 mg/dL *NA* (12/01/15 12:53 PM) U Protein 181.9 mg/dL *NA* (12/01/15 12:53 PM) U Prot/Creat 0.6 *NA* (12/01/15 12:53 PM) IMMUNOLOGY Most recent to 1 oldest [Reference Range]: Treponemal Scr [Non Non Reactive Reactive] *NA* (12/01/15 3:37 PM) HIV. [Negative] Negative *NA* (12/01/15 3:37 PM) Hep Bs Ag [Negative] Negative *NA* (12/01/15 3:37 PM) HEMATOLOGY Most recent to 1 oldest [Reference Range]: WBC [3.7-10.4 K/CMM] 9.1 K/CMM (12/01/15 12:53 PM) RBC [4.20-5.40 4.80 M/CMM M/CMM] (12/01/15 12:53 PM) Hgb [12.0-16.0 g/dL] 13.1 g/dL (12/01/15 12:53 PM) Hct [36.0-48.0 %] 39.5 % (12/01/15 12:53 PM) MCV [80.0-98.0 fL] 82.3 fL (12/01/15 12:53 PM) MCH [27.0-31.0 pg] 27.3 pg (12/01/15 12:53 PM) MCHC [32.0-36.0 33.2 g/dL g/dL] (12/01/15 12:53 PM) RDW [11.5-14.5 %] 13.5 % (12/01/15 12:53 PM) Platelet [133-450 255 K/CMM K/CMM] (12/01/15 12:53 PM) MPV [7.4-10.4 fL] 10.2 fL (12/01/15 12:53 PM) Segs [45.0-75.0 %] 72.8 % (12/01/15 12:53 PM) Lymphocytes 19.2 % [20.0-40.0 %] *LOW* (12/01/15 12:53 PM) Monocytes [2.0-12.0 7.1 % %] (12/01/15 12:53 PM) Eosinophils [0.0-4.0 0.3 % %] (12/01/15 12:53 PM) Basophils [0.0-1.0 0.6 % %] (12/01/15 12:53 PM) Segs-Bands # 6.6 K/CMM [1.5-8.1 K/CMM] (12/01/15 12:53 PM) Lymphocytes # 1.7 K/CMM [1.0-5.5 K/CMM] (12/01/15 12:53 PM) Monocytes # [0.0-0.8 0.6 K/CMM K/CMM] (12/01/15 12:53 PM) Basophils # [0.0-0.2 0.1 K/CMM K/CMM] (12/01/15 12:53 PM) Immunizations Vaccine Date Refusal Reason diphtheria/pertussis, acel/tetanus adult 06/08/14 influenza virus vaccine, inactivated 06/09/14 Procedures No data available for this section Social History Social History Type Response Employment/School Highest education level: High school. Smoking Status Never smoker; Exposure to Tobacco Smoke None; Cigarette Smoking Last 365 Days No; Reg Smoking Cessation Counseling No Assessment and Plan Extracted from: Title: Clinical Document Author: Joellen Mejia MD Date: 12/03/15 Strip Review FHT: 150, moderate variability; + accelerations, no decelerations Deputy: No contractions Reassuring and reactive strip. May discharge home.
[2019-03-16] MEDS ORDERED: KETOROLAC TROMETHAMINE 60 MG/2 ML VIAL IM ONE (14:30)
--- NOTE | 2019-03-16 15:13 | Diagnostic Imaging Report ---
EXAMINATION: CHEST 2 VIEWS INDICATION: ^CP ^[id number] ^1445 ^N COMPARISON: None FINDINGS: PA and lateral views TUBES and LINES: None. LUNGS: Lungs are well inflated. Lungs are clear. Few scattered bilateral lower lobes calcified granulomas. There is no evidence of pneumonia or pulmonary edema. PLEURA: No pleural effusion or pneumothorax. HEART AND MEDIASTINUM: The cardiomediastinal silhouette is unremarkable. BONES AND SOFT TISSUES: No acute osseous lesion. Soft tissues are unremarkable. UPPER ABDOMEN: No free air under the diaphragm. IMPRESSION: No acute thoracic abnormality. Signed by: Dr. Brandy Bolton M.D. on 03/16/2019 3:10 PM
[2019-03-16 15:45] VITALS: BP 135/86
== END 2019-03-16 15:45 | disposition home or self-care (01) ==
LOC: ER 13:07
DX: R07.89 Other chest pain (principal)
CPT/HCPCS: 71046; 93005; 99283; J1885